=== PATIENT | female | born 1965 | race African-American/Black ===

== ENCOUNTER 2017-02-23 12:43 | Inpatient (IN) | payer MEDICAID ==
[~2017-02-23] VITALS: Ht 162.6 cm; Wt 113.4 kg
[~2017-02-23 12:43] MED LIST: ASPI-1035; GABA800T97 PO; HUM10VIA8 SQ; Nifedipine PO; OMEP20CA10 PO
[2017-02-23] MEDS ORDERED: TRAMADOL (13:03)
[2017-02-23] MEDS ORDERED: LISINOPRIL (13:03)
[2017-02-23 14:39] LABS: BASOPHILS % 0.7 % (0.0-2.0); EOSINOPHILS % 9.7 % (0.0-5.0); HEMATOCRIT. 26.2 % (36.0-48.0); LYMPHOCYTES % 34.1 % (20.0-50.0); MEAN CORPUSCULAR HEMOGLOBIN 18.7 pg (28.0-32.0); MEAN CORPUSCULAR HGB CONC 30.8 g/dL (31.0-37.0); MEAN CORPUSCULAR VOLUME 60.8 fL (81.0-99.0); NEUTROPHILS % 49.5 % (40.0-76.0); RED CELL DISTRIBUTION WIDTH 17.5 % (11.6-14.6)
[2017-02-23 14:45] LABS: PROTHROMBIN TIME 10.8 sec
[2017-02-23 14:47] LABS: DIFFERENTIAL COMMENT 1
[2017-02-23 14:48] LABS: ADD RBC MORPHOLOGY YES
[2017-02-23 14:49] LABS: ALANINE AMINOTRANSFERASE 17 IU/L (13-61); ALBUMIN 2.1 g/dL (3.4-5.0); ANION GAP 9; CALCIUM 8.6 mg/dL (8.5-10.1); CARBON DIOXIDE 23 mEq/L (21-32); CHLORIDE 115 mEq/L (98-107); INDEX HEMOLYSI 1 (1-3); INDEX ICTERIC 1 (1-4); INDEX LIPEMIC 1 (1-3); UREA NITROGEN BLOOD 46 mg/dL (7-21)
[2017-02-23 14:54] LABS: TROPONIN I < 0.02 ng/mL (0.00-0.04); eGFR 26 mL/min (>60)
[2017-02-23] MEDS ORDERED: ONDANSETRON HCL 4MG/2ML VIAL IV ONE (15:00)
[2017-02-23] MEDS ORDERED: MORPHINE SULFATE 4 MG/ML CPJ (NOT FOR IM USE) IV ONE (15:00)
[2017-02-23 15:39] LABS: HYPOCHROMASIA 3+; MEAN PLATELET VOLUME 9.2 fl (7.4-10.4); PLATELET 177 x1000/uL (130-400); PLATELET ESTIMATE NORMAL
[2017-02-23] MEDS ORDERED: SODIUM POLYSTYRENE SULFONATE 15 G/60 ML BOT PO ONE (16:15)
[2017-02-23 18:08] LABS: CLARITY URINE CLEAR (CLEAR); COLOR URINE YELLOW (YELLOW); GLUCOSE URINE TRACE (NEGATIVE); KETONES URINE NEGATIVE (NEGATIVE); LEUKOCYTE ESTERASE URINE NEGATIVE (NEGATIVE); NITRITE URINE NEGATIVE (NEGATIVE); OCCULT BLOOD URINE 1+ (NEGATIVE); PROTEIN URINE 3+ (NEGATIVE); SPECIFIC GRAVITY URINE 1.016 (1.005-1.030); UROBILINOGEN URINE 0.2 E.U./dL (0.2-1.0)
[2017-02-23] MEDS ORDERED: NA PHOS,M-B/NA PHOS,DI-BA ENEMA 118ML PR PRN (18:30)
[2017-02-23] MEDS ORDERED: CLONIDINE 0.2MG TABLET PO ONE (18:30)
[2017-02-23] MEDS ORDERED: IPRATROPIUM/ALBUTEROL 0.5-3(2.5)MG/3ML NEB INH PRN (18:30)
[2017-02-23] MEDS ORDERED: AMLODIPINE 10MG TABLET PO NR (18:30)
[2017-02-23] MEDS ORDERED: GUAIFENESIN 200MG/10ML SUGAR FREE UDC PO PRN (18:30)
[2017-02-23] MEDS ORDERED: ACETAMINOPHEN 325MG TABLET PO PRN (18:30)
[2017-02-23] MEDS ORDERED: DOCUSATE SODIUM 100MG CAPSULE PO PRN (18:30)
[2017-02-23] MEDS ORDERED: ACETAMINOPHEN 650MG/20.3ML UDC GT PRN (18:30)
[2017-02-23] MEDS ORDERED: ONDANSETRON HCL 4MG/2ML VIAL IV PRN (18:30)
[2017-02-23] MEDS ORDERED: ACETAMINOPHEN 650MG SUPP PR PRN (18:30)
[2017-02-23] MEDS ORDERED: CLONIDINE 0.1MG TABLET PO PRN (18:30)
[2017-02-23 18:39] LABS: BACTERIA URINE 1+; RBC URINE 0-2 /hpf (0-2); SQUAMOUS EPITHELIAL CELL URINE FEW /lpf (RARE/1+); WBC URINE 0-2 /hpf (0-2)
[2017-02-23 21:30] VITALS: BP 146/90
[2017-02-23 21:55] VITALS: BP 146/90
[2017-02-23] MEDS ORDERED: TRAMADOL 50MG TABLET PO PRN (23:00)
[2017-02-23] MEDS ORDERED: DEXTROSE 50% WATER 50ML SYRINGE IV PRN (23:00)
[2017-02-23] MEDS: SODIUM CHLORIDE 0.9% 1,000 ML IV SCH (23:27)
[2017-02-23] MEDS: HYDROCODONE/ACETAMINOPHEN 5/325MG TABLET PO PRN (23:27)
[2017-02-23] MEDS: SODIUM CHLORIDE 0.9% INJ 3ML FLUSH IVF SCH (23:28)
[2017-02-24] VITALS (10 sets, daily range): BP systolic 119–158; BP diastolic 70–92
[2017-02-24] MEDS: HYDROCODONE/ACETAMINOPHEN 5/325MG TABLET PO PRN ×4 (04:20→20:51)
[2017-02-24] MEDS: BLOOD SUGAR DIAGNOSTIC STRIP TEST SCH ×4 (05:52→21:07)
[2017-02-24] MEDS: SODIUM CHLORIDE 0.9% INJ 3ML FLUSH IVF SCH ×3 (05:52→20:51)
[2017-02-24] MEDS: INSULIN LISPRO 100 UNITS/ML SUBCUT SCH ×4 (05:53→21:10)
[2017-02-24 07:10] LABS: BASOPHILS % 0.8 % (0.0-2.0); EOSINOPHILS % 9.6 % (0.0-5.0); HEMATOCRIT. 26.2 % (36.0-48.0); HEMOGLOBIN. 8.2 g/dL (12.0-16.0); LYMPHOCYTES % 45.3 % (20.0-50.0); MEAN CORPUSCULAR HEMOGLOBIN 19.2 pg (28.0-32.0); MEAN CORPUSCULAR HGB CONC 31.1 g/dL (31.0-37.0); MEAN CORPUSCULAR VOLUME 61.6 fL (81.0-99.0); MONOCYTES % 6.2 % (2.0-8.0); NEUTROPHILS % 38.1 % (40.0-76.0); RED BLOOD CELL COUNT 4.26 mill/uL (4.2-5.4); RED CELL DISTRIBUTION WIDTH 18.6 % (11.6-14.6); WHITE BLOOD COUNT 6.4 x1000/uL (4.5-11.0)
[2017-02-24 07:48] LABS: DIFFERENTIAL COMMENT 1
[2017-02-24] MEDS: OMEPRAZOLE 20MG CAPSULE EXTENDED RELEASE PO SCH ×2 (08:09→08:19)
[2017-02-24] MEDS: AMLODIPINE 10MG TABLET PO SCH (08:19)
[2017-02-24] MEDS: NIFEDIPINE XL 60MG TAB PO SCH ×2 (08:19→20:51)
[2017-02-24] MEDS: GABAPENTIN 400MG CAPSULE PO SCH ×2 (08:19→16:17)
[2017-02-24] MEDS: ASPIRIN 81MG EC TABLET PO SCH (08:19)
[2017-02-24 08:25] LABS: ALANINE AMINOTRANSFERASE 15 IU/L (13-61); ALBUMIN 1.8 g/dL (3.4-5.0); ANION GAP 9; CALCIUM 7.9 mg/dL (8.5-10.1); CARBON DIOXIDE 24 mEq/L (21-32); CHLORIDE 113 mEq/L (98-107); HDL CHOLESTEROL 52 mg/dL (40-59); INDEX HEMOLYSI 1 (1-3); INDEX ICTERIC 1 (1-4); INDEX LIPEMIC 1 (1-3); LDL CHOLESTEROL 113 mg/dL (5-100); TRIGLYCERIDE 192 mg/dL (0-150); UREA NITROGEN BLOOD 44 mg/dL (7-21); eGFR 25 mL/min (>60)
[2017-02-24] MEDS ORDERED: ENOXAPARIN 30MG/0.3ML SYR SUBCUT SCH (09:00)
[2017-02-24 09:27] LABS: MEAN PLATELET VOLUME 10.6 fl (7.4-10.4); PLATELET 162 x1000/uL (130-400)
[2017-02-24] MEDS ORDERED: SODIUM POLYSTYRENE SULFONATE 15 G/60 ML BOT PO NR (11:02)
[2017-02-24 11:14] LABS: *AMPHETAMINES SCREEN URINE NEGATIVE (NEGATIVE); *BARBITURATES SCREEN URINE NEGATIVE (NEGATIVE); *BENZODIAZEPINES SCREEN URINE NEGATIVE (NEGATIVE); *COCAINE SCREEN URINE NEGATIVE (NEGATIVE); CANNABINOID URINE SCREEN NEGATIVE (NEGATIVE); ECSTASY MDMA SCREEN URINE NEGATIVE (NEGATIVE); METHADONE URINE SCREEN NEGATIVE (NEGATIVE); OPIATES URINE SCREEN NEGATIVE (NEGATIVE); PHENCYCLIDINE URINE SCREEN NEGATIVE (NEGATIVE)
[2017-02-24] MEDS: SODIUM CHLORIDE 0.9% 1,000 ML IV SCH (20:51)
[2017-02-24] MEDS: MAGNESIUM/ALUMINUM HYDROXIDE/SIMETHICONE 30ML UDC PO PRN (20:51)
[2017-02-24] MEDS: DIPHENHYDRAMINE 50MG/ML VIAL IV PRN (23:08)
[2017-02-25] VITALS: BP 121/63
[2017-02-25 04:00] VITALS: BP 136/90
[2017-02-25] MEDS: HYDROCODONE/ACETAMINOPHEN 5/325MG TABLET PO PRN ×3 (04:11→21:12)
[2017-02-25] MEDS: SODIUM CHLORIDE 0.9% INJ 3ML FLUSH IVF SCH ×3 (06:07→21:16)
[2017-02-25] MEDS: INSULIN LISPRO 100 UNITS/ML SUBCUT SCH ×4 (06:21→20:32)
[2017-02-25] MEDS: BLOOD SUGAR DIAGNOSTIC STRIP TEST SCH ×4 (06:21→20:32)
[2017-02-25 08:00] VITALS: BP 116/70
[2017-02-25] MEDS: NIFEDIPINE XL 60MG TAB PO SCH ×2 (09:14→21:16)
[2017-02-25] MEDS: ENOXAPARIN 40MG/0.4ML SYR SUBCUT SCH (09:14)
[2017-02-25] MEDS: OMEPRAZOLE 20MG CAPSULE EXTENDED RELEASE PO SCH (09:14)
[2017-02-25] MEDS: ASPIRIN 81MG EC TABLET PO SCH (09:14)
[2017-02-25] MEDS: AMLODIPINE 10MG TABLET PO SCH (09:14)
[2017-02-25] MEDS: GABAPENTIN 400MG CAPSULE PO SCH ×2 (09:15→17:10)
[2017-02-25 12:00] VITALS: BP 124/72
[2017-02-25] MEDS: SODIUM CHLORIDE 0.9% 1,000 ML IV SCH (13:56)
[2017-02-25 16:53] VITALS: BP 119/68
[2017-02-25 20:00] VITALS: BP 144/80
[2017-02-25] MEDS: DIPHENHYDRAMINE 50MG/ML VIAL IV PRN (22:37)
[2017-02-26] VITALS: BP 136/97
[2017-02-26 04:00] VITALS: BP 135/67
[2017-02-26] MEDS: SODIUM CHLORIDE 0.9% INJ 3ML FLUSH IVF SCH ×3 (05:13→22:40)
[2017-02-26] MEDS: SODIUM CHLORIDE 0.9% 1,000 ML IV SCH ×2 (05:14→16:46)
[2017-02-26] MEDS: HYDROCODONE/ACETAMINOPHEN 5/325MG TABLET PO PRN ×2 (05:39→15:02)
[2017-02-26] MEDS: BLOOD SUGAR DIAGNOSTIC STRIP TEST SCH ×4 (07:17→20:39)
[2017-02-26] MEDS: INSULIN LISPRO 100 UNITS/ML SUBCUT SCH ×4 (07:17→21:00)
[2017-02-26 08:00] VITALS: BP 128/69
[2017-02-26] MEDS: NIFEDIPINE XL 60MG TAB PO SCH ×2 (08:42→20:39)
[2017-02-26] MEDS: ASPIRIN 81MG EC TABLET PO SCH (08:42)
[2017-02-26] MEDS: FAMOTIDINE 20MG TABLET PO SCH (08:42)
[2017-02-26] MEDS: GABAPENTIN 400MG CAPSULE PO SCH ×2 (08:42→16:43)
[2017-02-26] MEDS: AMLODIPINE 10MG TABLET PO SCH (08:42)
[2017-02-26] MEDS: ENOXAPARIN 40MG/0.4ML SYR SUBCUT SCH (08:43)
[2017-02-26 12:00] VITALS: BP 116/71
[2017-02-26 16:00] VITALS: BP 141/77
[2017-02-26] MEDS ORDERED: FUROSEMIDE 40MG/4ML VIAL IVP NR (16:30)
[2017-02-26] MEDS ORDERED: POTASSIUM CHLORIDE 20MEQ TABLET SR PO ONE (16:30)
[2017-02-26] MEDS: MAGNESIUM/ALUMINUM HYDROXIDE/SIMETHICONE 30ML UDC PO PRN (16:46)
[2017-02-26 20:00] VITALS: BP 133/83
[2017-02-26 20:30] LABS: HEMATOCRIT. 29.2 % (36.0-48.0); MEAN CORPUSCULAR HEMOGLOBIN 19.6 pg (28.0-32.0); MEAN CORPUSCULAR HGB CONC 30.9 g/dL (31.0-37.0); MEAN CORPUSCULAR VOLUME 63.5 fL (81.0-99.0); MEAN PLATELET VOLUME 11.4 fl (7.4-10.4); PLATELET 203 x1000/uL (130-400); RED CELL DISTRIBUTION WIDTH 19.2 % (11.6-14.6); WHITE BLOOD COUNT 6.3 x1000/uL (4.5-11.0)
[2017-02-26 20:40] LABS: DIFFERENTIAL COMMENT 1
[2017-02-26 20:54] LABS: ALANINE AMINOTRANSFERASE 19 IU/L (13-61); ANION GAP 11; CARBON DIOXIDE 22 mEq/L (21-32); CHLORIDE 115 mEq/L (98-107); INDEX HEMOLYSI 1 (1-3); INDEX ICTERIC 1 (1-4); INDEX LIPEMIC 1 (1-3); UREA NITROGEN BLOOD 42 mg/dL (7-21); eGFR 26 mL/min (>60)
[2017-02-26 21:30] LABS: HYPOCHROMASIA 2+; PLATELET ESTIMATE NORMAL
[2017-02-26 21:31] LABS: ANISOCYTOSIS 2+
[2017-02-26] MEDS: DIPHENHYDRAMINE 50MG/ML VIAL IV PRN (22:45)
[2017-02-27] VITALS: BP 154/83
[2017-02-27 04:00] VITALS: BP 133/88
[2017-02-27] MEDS: SODIUM CHLORIDE 0.9% 1,000 ML IV SCH (05:47)
[2017-02-27] MEDS: INSULIN LISPRO 100 UNITS/ML SUBCUT SCH ×2 (06:15→12:33)
[2017-02-27] MEDS: BLOOD SUGAR DIAGNOSTIC STRIP TEST SCH ×2 (06:15→12:28)
[2017-02-27] MEDS: SODIUM CHLORIDE 0.9% INJ 3ML FLUSH IVF SCH ×2 (06:48→12:34)
[2017-02-27] MEDS: HYDROCODONE/ACETAMINOPHEN 5/325MG TABLET PO PRN (06:49)
[2017-02-27 08:00] VITALS: BP 147/87
[2017-02-27] MEDS: FAMOTIDINE 20MG TABLET PO SCH (09:39)
[2017-02-27] MEDS: NIFEDIPINE XL 60MG TAB PO SCH (09:39)
[2017-02-27] MEDS: ASPIRIN 81MG EC TABLET PO SCH (09:39)
[2017-02-27] MEDS: GABAPENTIN 400MG CAPSULE PO SCH (09:40)
[2017-02-27] MEDS: AMLODIPINE 10MG TABLET PO SCH (09:40)
[2017-02-27] MEDS: ENOXAPARIN 40MG/0.4ML SYR SUBCUT SCH (09:40)
[2017-02-27 12:00] VITALS: BP 128/66
[2017-02-27] MEDS: DIPHENHYDRAMINE 50MG/ML VIAL IV PRN (12:34)
[2017-02-27 15:20] VITALS: BP 141/92
== END 2017-02-27 18:05 | disposition home or self-care (01) | DRG 460 ==
LOC: ER 12:44 → 8WST 16:48
PROVIDERS: ADMIT Family Medicine; ATTEND Family Medicine
PROC: 30233N1 Transfusion of Nonautologous Red Blood Cells into Peripheral Vein, Percutaneous Approach (ICD-10-PCS; principal; 2017-02-24)
DX: N17.9 Acute kidney failure, unspecified (principal); E11.22 Type 2 diabetes mellitus with diabetic chronic kidney disease; E11.40 Type 2 diabetes mellitus with diabetic neuropathy, unspecified; E46 Unspecified protein-calorie malnutrition; D63.8 Anemia in other chronic diseases classified elsewhere; E78.5 Hyperlipidemia, unspecified; E87.5 Hyperkalemia; I12.9 Hypertensive chronic kidney disease with stage 1 through stage 4 chronic kidney disease, or unspecified chronic kidney disease; R29.6 Repeated falls; D25.9 Leiomyoma of uterus, unspecified; E86.0 Dehydration; F17.200 Nicotine dependence, unspecified, uncomplicated; M47.9 Spondylosis, unspecified; N18.3 Chronic kidney disease, stage 3 (moderate); N20.0 Calculus of kidney; F32.9 Major depressive disorder, single episode, unspecified; E66.9 Obesity, unspecified; W18.30XA Fall on same level, unspecified, initial encounter; Z59.0 Homelessness; Z79.82 Long term (current) use of aspirin; Z86.73 Personal history of transient ischemic attack (TIA), and cerebral infarction without residual deficits; Z79.4 Long term (current) use of insulin; Z79.899 Other long term (current) drug therapy; Z68.41 Body mass index [BMI] 40.0-44.9, adult; Y93.89 Activity, other specified; Y92.89 Other specified places as the place of occurrence of the external cause; Y99.8 Other external cause status
CPT/HCPCS: 36415; 36430; 70450; 72100; 72170; 73562; 74176; 76770; 80053; 80061; 80305; 81001; 82962; 83036; 84484; 85025; 85610; 86850; 86900; 86920; 93005; 93971; 96374; 96375; 97116; 97162; 97530; 99285; 99406; C1893; J1200; J1650; J1815; J2270; J2405; J7030; J7050; P9016

== ENCOUNTER 2017-03-01 09:01 | Emergency (ER) | payer MEDICAID ==
[~2017-03-01] VITALS: Ht 162.6 cm; Wt 85.0 kg
[~2017-03-01 09:01] MED LIST changes: +LISINOPRIL; +TRAMADOL
[2017-03-01] MEDS ORDERED: ACETAMINOPHEN 325MG TABLET PO ONE (10:45)
[2017-03-01 11:10] LABS: BASOPHILS % 0.5 % (0.0-2.0); EOSINOPHILS % 6.5 % (0.0-5.0); HEMATOCRIT. 31.1 % (36.0-48.0); HEMOGLOBIN. 9.5 g/dL (12.0-16.0); LYMPHOCYTES % 26.6 % (20.0-50.0); MEAN CORPUSCULAR HEMOGLOBIN 19.1 pg (28.0-32.0); MEAN CORPUSCULAR HGB CONC 30.5 g/dL (31.0-37.0); MEAN CORPUSCULAR VOLUME 62.7 fL (81.0-99.0); MONOCYTES % 8.6 % (2.0-8.0); NEUTROPHILS % 57.8 % (40.0-76.0); RED BLOOD CELL COUNT 4.96 mill/uL (4.2-5.4); RED CELL DISTRIBUTION WIDTH 18.8 % (11.6-14.6); WHITE BLOOD COUNT 7.8 x1000/uL (4.5-11.0)
[2017-03-01 11:17] LABS: DIFFERENTIAL COMMENT 1
[2017-03-01 11:18] LABS: ADD RBC MORPHOLOGY YES
[2017-03-01 11:21] LABS: CALCIUM 8.5 mg/dL (8.5-10.1)
[2017-03-01 12:06] LABS: ANISOCYTOSIS 2+; HYPOCHROMASIA 2+
[2017-03-01 12:07] LABS: GIANT PLATELETS FEW; MEAN PLATELET VOLUME 9.9 fl (7.4-10.4); PLATELET 197 x1000/uL (130-400); PLATELET ESTIMATE NORMAL
[2017-03-01] MEDS ORDERED: LABETALOL HCL 20MG/4ML CARPUJECT IV PRN (13:30)
[2017-03-01] MEDS ORDERED: LABETALOL 5MG/ML SYR 20 MG/4 ML SYRINGE IV PRN (13:45)
[2017-03-01] MEDS ORDERED: LORAZEPAM 2MG/ML CPJ IV ONE (14:15)
[2017-03-01] MEDS ORDERED: DIPHENHYDRAMINE 50MG/ML VIAL IV ONE (14:15)
[2017-03-01 17:59] LABS: *AMPHETAMINES SCREEN URINE NEGATIVE (NEGATIVE); *BARBITURATES SCREEN URINE NEGATIVE (NEGATIVE); *BENZODIAZEPINES SCREEN URINE NEGATIVE (NEGATIVE); *COCAINE SCREEN URINE NEGATIVE (NEGATIVE); CANNABINOID URINE SCREEN NEGATIVE (NEGATIVE); ECSTASY MDMA SCREEN URINE NEGATIVE (NEGATIVE); METHADONE URINE SCREEN NEGATIVE (NEGATIVE); OPIATES URINE SCREEN PRESUMTIVE POSITIVE (NEGATIVE); PHENCYCLIDINE URINE SCREEN NEGATIVE (NEGATIVE)
[2017-03-01] MEDS ORDERED: DIPHENHYDRAMINE 50MG CAPSULE PO ONE (22:45)
[2017-03-02] MEDS ORDERED: NIFEDIPINE XL 60MG TAB PO ONE (08:30)
[2017-03-02] MEDS ORDERED: GABAPENTIN 400MG CAPSULE PO ONE (08:30)
[2017-03-02] MEDS ORDERED: DIPHENHYDRAMINE 50MG CAPSULE PO ONE (08:30)
[2017-03-02 14:10] VITALS: BP 142/72
== END 2017-03-02 14:07 | disposition home or self-care (01) ==
LOC: ER 09:12
DX: G44.209 Tension-type headache, unspecified, not intractable (principal); I12.9 Hypertensive chronic kidney disease with stage 1 through stage 4 chronic kidney disease, or unspecified chronic kidney disease; N18.9 Chronic kidney disease, unspecified; E11.9 Type 2 diabetes mellitus without complications; F32.9 Major depressive disorder, single episode, unspecified; E78.00 Pure hypercholesterolemia, unspecified; R29.6 Repeated falls; Z86.73 Personal history of transient ischemic attack (TIA), and cerebral infarction without residual deficits; Z91.81 History of falling; Z79.82 Long term (current) use of aspirin; Z79.4 Long term (current) use of insulin
CPT/HCPCS: 36415; 80048; 80305; 82962; 85025; 93005; 93971; 96374; 96375; 99285; J1200; J2060; J3490; Z7610; Q0163

== ENCOUNTER 2017-07-16 23:07 | Inpatient (IN) | payer MEDICAID ==
[~2017-07-16] VITALS: Ht 165.1 cm; Wt 58.1 kg
[~2017-07-16 23:07] MED LIST changes: -ASPI-1035; +ASPI-1158; +LISI2.5T47 PO; -LISINOPRIL; +NIFE60TA35 PO; +TRAM50TA3 PO; -TRAMADOL
[2017-07-17] MEDS ORDERED: ONDANSETRON HCL 4MG/2ML VIAL IV STA (00:06)
[2017-07-17] MEDS ORDERED: MORPHINE SULFATE 4 MG/ML CPJ (NOT FOR IM USE) IV ONE (00:15)
[2017-07-17] MEDS ORDERED: ENALAPRIL 2.5MG/2ML VIAL 2ML IV ONE (00:15)
[2017-07-17 00:39] LABS: BASOPHILS % 0.5 % (0.0-2.0); EOSINOPHILS % 4.5 % (0.0-5.0); HEMOGLOBIN. 7.9 g/dL (12.0-16.0); LYMPHOCYTES % 31.5 % (20.0-50.0); MEAN CORPUSCULAR HEMOGLOBIN 18.7 pg (28.0-32.0); MEAN CORPUSCULAR VOLUME 59.1 fL (81.0-99.0); MONOCYTES % 7.2 % (2.0-8.0); NEUTROPHILS % 56.3 % (40.0-76.0); RED BLOOD CELL COUNT 4.22 mill/uL (4.2-5.4); RED CELL DISTRIBUTION WIDTH 16.4 % (11.6-14.6)
[2017-07-17 00:55] LABS: CARBON DIOXIDE 23 mEq/L (21-32); CHLORIDE 114 mEq/L (98-107); TROPONIN I < 0.02 ng/mL (0.00-0.04)
[2017-07-17 01:17] LABS: MEAN PLATELET VOLUME 9.2 fl (7.4-10.4); PLATELET 159 x1000/uL (130-400)
[2017-07-17 07:20] VITALS: BP 175/80
[2017-07-17] MEDS ORDERED: IPRATROPIUM/ALBUTEROL 0.5-3(2.5)MG/3ML NEB INH PRN (07:45)
[2017-07-17] MEDS ORDERED: ENOXAPARIN 40MG/0.4ML SYR SUBCUT SCH ×2 (07:45→09:00)
[2017-07-17] MEDS ORDERED: ONDANSETRON HCL 4MG/2ML VIAL IV PRN (07:45)
[2017-07-17 07:53] VITALS: BP 130/84
[2017-07-17 07:56] VITALS: BP 130/84
[2017-07-17] MEDS: FOLIC ACID 1MG TABLET PO SCH (08:11)
[2017-07-17] MEDS: OMEPRAZOLE 20MG CAPSULE EXTENDED RELEASE PO SCH (08:11)
[2017-07-17] MEDS: NIFEDIPINE XL 60MG TAB PO SCH ×2 (08:12→17:23)
[2017-07-17] MEDS: MULTIVITAMINS,THER W-MINERALS TABLET PO SCH ×2 (08:12→08:15)
[2017-07-17] MEDS: ASPIRIN 81MG EC TABLET PO SCH (08:13)
[2017-07-17] MEDS: HYDROCODONE/ACETAMINOPHEN 5/325MG TABLET PO PRN (09:30)
[2017-07-17 12:00] VITALS: BP 147/74
[2017-07-17] MEDS ORDERED: SENNOSIDES/DOCUSATE SOD 8.6/50MG TABLET PO PRN (13:45)
[2017-07-17] MEDS: GABAPENTIN 400MG CAPSULE PO SCH ×2 (13:58→21:05)
[2017-07-17] MEDS: LACTULOSE 20G/30ML UDC PO SCH ×2 (14:02→21:05)
[2017-07-17 16:00] VITALS: BP 161/80
[2017-07-17 20:00] VITALS: BP 138/62
[2017-07-18] VITALS (12 sets, daily range): BP systolic 126–158; BP diastolic 59–86
[2017-07-18] MEDS: TRAMADOL 50MG TABLET PO PRN (01:09)
[2017-07-18] MEDS: GABAPENTIN 400MG CAPSULE PO SCH ×3 (06:18→22:11)
[2017-07-18] MEDS: LACTULOSE 20G/30ML UDC PO SCH ×3 (06:18→22:11)
[2017-07-18 06:30] LABS: BASOPHILS % 0.5 % (0.0-2.0); HEMATOCRIT. 21.7 % (36.0-48.0); LYMPHOCYTES % 40.1 % (20.0-50.0); MEAN CORPUSCULAR HEMOGLOBIN 18.7 pg (28.0-32.0); MEAN CORPUSCULAR VOLUME 58.5 fL (81.0-99.0); MONOCYTES % 6.5 % (2.0-8.0); NEUTROPHILS % 46.9 % (40.0-76.0); RED BLOOD CELL COUNT 3.72 mill/uL (4.2-5.4); RED CELL DISTRIBUTION WIDTH 16.8 % (11.6-14.6)
[2017-07-18 07:09] LABS: CHLORIDE 114 mEq/L (98-107)
[2017-07-18 07:22] LABS: CARBON DIOXIDE 21 mEq/L (21-32); PHOSPHORUS 5.4 mg/dL (2.5-4.9); TOTAL IRON BINDING CAPACITY 180 ug/dL (250-450)
[2017-07-18] MEDS: FOLIC ACID 1MG TABLET PO SCH (08:00)
[2017-07-18] MEDS: MULTIVITAMINS,THER W-MINERALS TABLET PO SCH (08:01)
[2017-07-18] MEDS: ASPIRIN 81MG EC TABLET PO SCH (08:01)
[2017-07-18] MEDS: NIFEDIPINE XL 60MG TAB PO SCH ×2 (08:01→16:27)
[2017-07-18] MEDS: OMEPRAZOLE 20MG CAPSULE EXTENDED RELEASE PO SCH (08:01)
[2017-07-18 08:04] LABS: MEAN PLATELET VOLUME 9.3 fl (7.4-10.4); PLATELET ESTIMATE NORMAL
[2017-07-18 08:05] LABS: PLATELET 153 x1000/uL (130-400)
[2017-07-18] MEDS: CALCIUM CARBONATE/VITAMIN D3 500MG TABLET PO SCH ×2 (10:40→16:27)
[2017-07-18] MEDS: HYDROCODONE/ACETAMINOPHEN 5/325MG TABLET PO PRN (10:45)
[2017-07-18] MEDS: FERROUS SULFATE 325MG TABLET PO SCH ×2 (12:34→16:27)
[2017-07-18 13:29] LABS: T4 FREE 0.94 ng/dL (0.76-1.46)
[2017-07-18 16:37] LABS: HEMATOCRIT 21.3 % (36.0-48.0); HEMOGLOBIN 6.9 g/dL (12.0-16.0)
[2017-07-18 22:50] LABS: CLARITY URINE CLEAR (CLEAR); COLOR URINE YELLOW (YELLOW); GLUCOSE URINE 1+ (NEGATIVE); KETONES URINE NEGATIVE (NEGATIVE); LEUKOCYTE ESTERASE URINE NEGATIVE (NEGATIVE); NITRITE URINE NEGATIVE (NEGATIVE); OCCULT BLOOD URINE 1+ (NEGATIVE); PH URINE 5.5 (4.5-8.0); PROTEIN URINE 4+ (NEGATIVE); SPECIFIC GRAVITY URINE 1.019 (1.005-1.030); UROBILINOGEN URINE 0.2 E.U./dL (0.2-1.0)
[2017-07-19] VITALS (8 sets, daily range): BP systolic 131–193; BP diastolic 59–104
[2017-07-19] MEDS: MORPHINE SULFATE 2 MG/ML CPJ (NOT FOR IM USE) IV PRN (00:40)
[2017-07-19] MEDS: DIPHENHYDRAMINE 50MG/ML VIAL IV PRN (02:03)
[2017-07-19] MEDS: GABAPENTIN 400MG CAPSULE PO SCH ×3 (05:47→21:04)
[2017-07-19] MEDS: LACTULOSE 20G/30ML UDC PO SCH ×3 (05:47→21:02)
[2017-07-19] MEDS: LEVOTHYROXINE SODIUM 25MCG TABLET PO SCH (06:20)
[2017-07-19 06:46] LABS: BASOPHILS % 0.3 % (0.0-2.0); EOSINOPHILS % 1.3 % (0.0-5.0); HEMATOCRIT. 29.4 % (36.0-48.0); HEMOGLOBIN. 9.3 g/dL (12.0-16.0); LYMPHOCYTES % 12.8 % (20.0-50.0); MEAN CORPUSCULAR HEMOGLOBIN 19.8 pg (28.0-32.0); MEAN CORPUSCULAR VOLUME 62.5 fL (81.0-99.0); NEUTROPHILS % 78.6 % (40.0-76.0); RED BLOOD CELL COUNT 4.71 mill/uL (4.2-5.4); RED CELL DISTRIBUTION WIDTH 19.3 % (11.6-14.6)
[2017-07-19] MEDS: ACETAMINOPHEN 325MG TABLET PO PRN (08:11)
[2017-07-19] MEDS: NIFEDIPINE XL 60MG TAB PO SCH ×2 (08:11→17:36)
[2017-07-19] MEDS: FERROUS SULFATE 325MG TABLET PO SCH ×3 (08:55→17:35)
[2017-07-19] MEDS: FOLIC ACID 1MG TABLET PO SCH (08:56)
[2017-07-19] MEDS: ASPIRIN 81MG EC TABLET PO SCH (08:56)
[2017-07-19] MEDS: CALCIUM CARBONATE/VITAMIN D3 500MG TABLET PO SCH ×2 (08:56→17:35)
[2017-07-19] MEDS: OMEPRAZOLE 20MG CAPSULE EXTENDED RELEASE PO SCH (08:56)
[2017-07-19] MEDS: CLONIDINE 0.1MG TABLET PO SCH ×3 (08:58→21:03)
[2017-07-19] MEDS: MULTIVITAMINS,THER W-MINERALS TABLET PO SCH (08:59)
[2017-07-19] MEDS: LISINOPRIL 10MG TABLET PO SCH ×2 (08:59→21:04)
[2017-07-19 13:17] LABS: PLATELET 168 x1000/uL (130-400)
[2017-07-19] MEDS: HYDROCODONE/ACETAMINOPHEN 5/325MG TABLET PO PRN ×2 (13:51→18:56)
[2017-07-19] MEDS ORDERED: LEVOFLOXACIN 500MG PREMIX 100 ML IV SCH (16:00)
[2017-07-19] MEDS: FAMOTIDINE 20MG TABLET PO SCH (21:03)
[2017-07-20 05:07] VITALS: BP 149/70
[2017-07-20] MEDS: LACTULOSE 20G/30ML UDC PO SCH ×3 (06:29→21:43)
[2017-07-20] MEDS: LEVOTHYROXINE SODIUM 25MCG TABLET PO SCH (06:30)
[2017-07-20] MEDS: GABAPENTIN 400MG CAPSULE PO SCH ×3 (06:30→21:43)
[2017-07-20] MEDS: CLONIDINE 0.1MG TABLET PO SCH ×3 (06:30→21:45)
[2017-07-20] MEDS: ACETAMINOPHEN 325MG TABLET PO PRN ×2 (06:30→14:35)
[2017-07-20 06:44] LABS: BASOPHILS % 0.3 % (0.0-2.0); EOSINOPHILS % 3.1 % (0.0-5.0); HEMATOCRIT. 23.8 % (36.0-48.0); HEMOGLOBIN. 7.5 g/dL (12.0-16.0); LYMPHOCYTES % 24.5 % (20.0-50.0); MEAN CORPUSCULAR HEMOGLOBIN 19.8 pg (28.0-32.0); MEAN CORPUSCULAR VOLUME 62.5 fL (81.0-99.0); MONOCYTES % 10.1 % (2.0-8.0); RED CELL DISTRIBUTION WIDTH 18.6 % (11.6-14.6)
[2017-07-20 08:00] VITALS: BP 137/78
[2017-07-20] MEDS: CALCIUM CARBONATE/VITAMIN D3 500MG TABLET PO SCH ×2 (09:01→17:13)
[2017-07-20] MEDS: FERROUS SULFATE 325MG TABLET PO SCH ×2 (09:01→14:34)
[2017-07-20] MEDS: NIFEDIPINE XL 60MG TAB PO SCH ×2 (09:01→17:14)
[2017-07-20] MEDS: ASPIRIN 81MG EC TABLET PO SCH (09:01)
[2017-07-20] MEDS: MULTIVITAMINS,THER W-MINERALS TABLET PO SCH (09:01)
[2017-07-20] MEDS: FOLIC ACID 1MG TABLET PO SCH (09:01)
[2017-07-20] MEDS: LISINOPRIL 10MG TABLET PO SCH ×2 (09:02→21:44)
[2017-07-20] MEDS ORDERED: SODIUM CHLORIDE 0.9% 1,000 ML IV SCH (09:15)
[2017-07-20 11:00] LABS: PLATELET 149 x1000/uL (130-400)
[2017-07-20 12:00] VITALS: BP 121/76
[2017-07-20 16:00] VITALS: BP 138/69
[2017-07-20 16:13] LABS: HEMOGLOBIN 7.5 g/dL (12.0-16.0)
[2017-07-20] MEDS ORDERED: LEVOFLOXACIN 250MG PREMIX 50 ML IV SCH (16:30)
[2017-07-20] MEDS ORDERED: LEVOFLOXACIN 500MG TABLET PO NR (16:50)
[2017-07-20 19:44] VITALS: BP 113/68
[2017-07-20] MEDS: FAMOTIDINE 20MG TABLET PO SCH (21:43)
[2017-07-20] MEDS: HYDROCODONE/ACETAMINOPHEN 5/325MG TABLET PO PRN (23:26)
[2017-07-21] VITALS (7 sets, daily range): BP systolic 109–161; BP diastolic 64–97
[2017-07-21] MEDS: MORPHINE SULFATE 2 MG/ML CPJ (NOT FOR IM USE) IV PRN (01:48)
[2017-07-21] MEDS: ACETAMINOPHEN 325MG TABLET PO PRN ×3 (05:27→21:09)
[2017-07-21] MEDS: GABAPENTIN 400MG CAPSULE PO SCH ×3 (06:00→21:04)
[2017-07-21] MEDS: CLONIDINE 0.1MG TABLET PO SCH ×3 (06:01→21:05)
[2017-07-21] MEDS: LACTULOSE 20G/30ML UDC PO SCH ×2 (06:01→13:15)
[2017-07-21 07:51] LABS: HEMATOCRIT. 26.5 % (36.0-48.0); HEMOGLOBIN. 8.6 g/dL (12.0-16.0); MEAN CORPUSCULAR VOLUME 61.7 fL (81.0-99.0); RED BLOOD CELL COUNT 4.29 mill/uL (4.2-5.4); RED CELL DISTRIBUTION WIDTH 18.5 % (11.6-14.6)
[2017-07-21] MEDS ORDERED: CEFEPIME 2,000 MG in DEXT 5% WATER 100 ML IV SCH (08:30)
[2017-07-21] MEDS: NIFEDIPINE XL 60MG TAB PO SCH ×2 (08:47→18:05)
[2017-07-21] MEDS: CALCIUM CARBONATE/VITAMIN D3 500MG TABLET PO SCH ×2 (08:47→18:05)
[2017-07-21] MEDS: LISINOPRIL 10MG TABLET PO SCH (08:47)
[2017-07-21] MEDS: ASPIRIN 81MG EC TABLET PO SCH (08:47)
[2017-07-21] MEDS: MULTIVITAMINS,THER W-MINERALS TABLET PO SCH (08:47)
[2017-07-21] MEDS ORDERED: VANCOMYCIN 2,000 MG in DEXT 5% WATER 500 ML IV SCH (11:00)
[2017-07-21 14:00] LABS: PLATELET 126 x1000/uL (130-400)
[2017-07-21 14:04] LABS: PLATELET ESTIMATE SLIGHTLY DECREASED
[2017-07-21] MEDS: TRAMADOL 50MG TABLET PO PRN (18:06)
[2017-07-21] MEDS: SODIUM CHLORIDE 0.9% 1,000 ML IV SCH ×2 (18:39→23:10)
[2017-07-21] MEDS: FAMOTIDINE 20MG TABLET PO SCH (21:04)
[2017-07-21] MEDS: AMPICILLIN SOD/SULBACTAM NA 3 G in SODIUM CHLORIDE 0.9% 100 ML IV SCH (21:04)
[2017-07-22 00:35] VITALS: BP 123/69
[2017-07-22 05:13] VITALS: BP 121/56
[2017-07-22] MEDS: SODIUM CHLORIDE 0.9% 1,000 ML IV SCH ×4 (06:17→18:28)
[2017-07-22] MEDS: GABAPENTIN 400MG CAPSULE PO SCH ×3 (06:17→21:47)
[2017-07-22] MEDS: CLONIDINE 0.1MG TABLET PO SCH ×3 (06:17→21:47)
[2017-07-22 08:00] VITALS: BP 127/55
[2017-07-22] MEDS: AMPICILLIN SOD/SULBACTAM NA 3 G in SODIUM CHLORIDE 0.9% 100 ML IV SCH ×2 (08:45→21:33)
[2017-07-22] MEDS: NIFEDIPINE XL 60MG TAB PO SCH ×2 (08:46→17:00)
[2017-07-22] MEDS: ACETAMINOPHEN 325MG TABLET PO PRN ×2 (08:46→13:50)
[2017-07-22] MEDS: ASPIRIN 81MG EC TABLET PO SCH (08:46)
[2017-07-22] MEDS: MULTIVITAMINS,THER W-MINERALS TABLET PO SCH (08:46)
[2017-07-22] MEDS: CALCIUM CARBONATE/VITAMIN D3 500MG TABLET PO SCH ×2 (08:46→17:05)
[2017-07-22] MEDS ORDERED: LEVOFLOXACIN 250MG TABLET PO SCH (11:00)
[2017-07-22 12:00] VITALS: BP 99/50
[2017-07-22 16:00] VITALS: BP 117/69
[2017-07-22 20:00] VITALS: BP 117/40
[2017-07-22] MEDS: FAMOTIDINE 20MG TABLET PO SCH (21:47)
[2017-07-23] VITALS (37 sets, daily range): BP systolic 88–141; BP diastolic 40–83
[2017-07-23] MEDS: SODIUM CHLORIDE 0.9% 1,000 ML IV SCH ×2 (03:49→07:26)
[2017-07-23] MEDS: CLONIDINE 0.1MG TABLET PO SCH ×3 (06:20→22:00)
[2017-07-23] MEDS: GABAPENTIN 400MG CAPSULE PO SCH ×3 (06:20→22:00)
[2017-07-23 06:37] LABS: HEMATOCRIT. 23.3 % (36.0-48.0); HEMOGLOBIN. 7.4 g/dL (12.0-16.0); MEAN CORPUSCULAR HEMOGLOBIN 19.5 pg (28.0-32.0); MEAN CORPUSCULAR VOLUME 61.2 fL (81.0-99.0); MEAN PLATELET VOLUME 10.4 fl (7.4-10.4); PLATELET 121 x1000/uL (130-400); RED BLOOD CELL COUNT 3.81 mill/uL (4.2-5.4); RED CELL DISTRIBUTION WIDTH 18.1 % (11.6-14.6)
[2017-07-23] MEDS: FERROUS SULFATE 325MG TABLET PO SCH ×3 (07:50→17:24)
[2017-07-23] MEDS: CALCIUM CARBONATE/VITAMIN D3 500MG TABLET PO SCH ×2 (08:04→17:00)
[2017-07-23] MEDS: NIFEDIPINE XL 60MG TAB PO SCH ×2 (08:04→17:00)
[2017-07-23] MEDS: MULTIVITAMINS,THER W-MINERALS TABLET PO SCH (08:04)
[2017-07-23] MEDS: ASPIRIN 81MG EC TABLET PO SCH (08:04)
[2017-07-23] MEDS: CITRIC ACID/SODIUM CITRATE SOLN 15ML UDC PO SCH ×3 (08:05→17:00)
[2017-07-23] MEDS: AMPICILLIN SOD/SULBACTAM NA 3 G in SODIUM CHLORIDE 0.9% 100 ML IV SCH ×2 (08:05→20:50)
[2017-07-23] MEDS: ACETAMINOPHEN 325MG TABLET PO PRN (08:05)
[2017-07-23 08:39] LABS: PLATELET ESTIMATE SLIGHTLY DECREASED
[2017-07-23] MEDS ORDERED: MORPHINE SULFATE 2 MG/ML CPJ (NOT FOR IM USE) IV PRN (09:30)
[2017-07-23] MEDS ORDERED: ONDANSETRON HCL 4MG/2ML VIAL IV PRN (09:30)
[2017-07-23] MEDS ORDERED: LEVOFLOXACIN 500MG PREMIX 100 ML IV SCH (09:30)
[2017-07-23] MEDS ORDERED: BUPIVACAINE HCL 0.5% (5MG/ML) 50ML ONE (09:53)
[2017-07-23] MEDS ORDERED: SKIN ADHESIVE 0.7 GM EA TOP ONE (09:53)
[2017-07-23] MEDS ORDERED: FENTANYL CITRATE/PF 50MCG/ML 2ML VIAL ONE (10:12)
[2017-07-23] MEDS ORDERED: MIDAZOLAM HCL 2 MG/2 ML VIAL ONE (10:12)
[2017-07-23] MEDS ORDERED: ROCURONIUM BROMIDE 10MG/ML VIAL 5ML IV ONE (10:13)
[2017-07-23] MEDS ORDERED: SUCCINYLCHOLINE CHLORIDE 200MG/10ML VIAL IV ONE (10:13)
[2017-07-23] MEDS ORDERED: PROPOFOL 200MG/20ML VIAL IV ONE (10:13)
[2017-07-23] MEDS ORDERED: LIDOCAINE HCL 1% 20ML VIAL (Pyxis) INJ ONE ×2 (10:13→15:58)
[2017-07-23] MEDS ORDERED: ALBUTEROL 90MCG/PUFF 17GM INHALER INH ONE (10:43)
[2017-07-23] MEDS ORDERED: DEXAMETHASONE 4MG/ML 1ML VIAL ONE (11:12)
[2017-07-23] MEDS ORDERED: ONDANSETRON HCL 4MG/2ML VIAL ONE (12:02)
[2017-07-23 13:46] LABS: BG CARBOXYHEMOGLOBIN 0.2 % (0.5-1.5); BG DEOXYHEMOGLOBIN 6.8 % (0.0-5.0); BG FRACTION INSPIRED OXYGEN 100; BG HCO3 ACT 13.1 mmol/L (22.0-26.0); BG METHEMOGLOBIN 0.1 % (0.0-1.5); BG OXYGEN SATURATION 93.2 % (92.0-98.5); BG OXYHEMOGLOBIN 92.9 % (94.0-97.0); BG PCO2 34.8 mmHg (35.0-45.0); BG PH 7.193 (7.350-7.450); BG PO2 85.2 mmHg (75.0-100.0); BG SAMPLE SITE LEFT RADIAL; BG TIDAL VOLUME(mL) 500 mL; BG TOTAL HEMOGLOBIN 8.8 g/dL (12.0-18.0); BG VENT MODE VENT - A/C; BG VENT RATE 16 set
[2017-07-23] MEDS ORDERED: SODIUM BICARBONATE 8.4% 1 MEQ/ML 50ML SYR IV NR (14:00)
[2017-07-23] MEDS: PROPOFOL 10MG/ML 100ML 100 ML IV PRN ×4 (14:30→22:43)
[2017-07-23 15:14] LABS: HEMATOCRIT. 25.2 % (36.0-48.0); HEMOGLOBIN. 8.1 g/dL (12.0-16.0); MEAN CORPUSCULAR HEMOGLOBIN 20.7 pg (28.0-32.0); MEAN CORPUSCULAR VOLUME 64.7 fL (81.0-99.0); MEAN PLATELET VOLUME 12.4 fl (7.4-10.4); PLATELET 157 x1000/uL (130-400); RED CELL DISTRIBUTION WIDTH 25.7 % (11.6-14.6)
[2017-07-23] MEDS: METRONIDAZOLE 500 MG PREMIX 100 ML IV SCH (15:28)
[2017-07-23] MEDS: SODIUM BICARBONATE 100 MEQ in DEXTROSE 5% WATER 900 ML IV SCH (15:57)
[2017-07-23] MEDS ORDERED: SODIUM BICARBONATE 4% (2.4MEQ) 5ML VIAL IV ONE (15:59)
[2017-07-23 16:08] LABS: HCG SCREEN NEGATIVE
[2017-07-23 17:33] LABS: PLATELET ESTIMATE NORMAL
[2017-07-23] MEDS ORDERED: NOREPINEPHRINE 8 MG in DEXT 5% WATER 242 ML IV PRN (19:45)
[2017-07-23] MEDS: IPRATROPIUM/ALBUTEROL 0.5-3(2.5)MG/3ML NEB HHN SCH (20:09)
[2017-07-23] MEDS: FAMOTIDINE 20MG/2ML VIAL IV SCH (21:09)
[2017-07-23] MEDS: HYDROMORPHONE HCL/PF 2MG/ML CPJ IV PRN (22:06)
[2017-07-24] VITALS (83 sets, daily range): BP systolic 89–162; BP diastolic 45–87
[2017-07-24] MEDS: IPRATROPIUM/ALBUTEROL 0.5-3(2.5)MG/3ML NEB HHN SCH ×6 (00:15→20:53)
[2017-07-24] MEDS: PROPOFOL 10MG/ML 100ML 100 ML IV PRN ×3 (01:36→08:57)
[2017-07-24] MEDS: HYDROMORPHONE HCL/PF 2MG/ML CPJ IV PRN ×2 (01:37→10:14)
[2017-07-24] MEDS: SODIUM BICARBONATE 100 MEQ in DEXTROSE 5% WATER 900 ML IV SCH (02:53)
[2017-07-24] MEDS: METRONIDAZOLE 500 MG PREMIX 100 ML IV SCH (03:35)
[2017-07-24] MEDS: CLONIDINE 0.1MG TABLET PO SCH ×3 (04:56→21:40)
[2017-07-24] MEDS: GABAPENTIN 400MG CAPSULE PO SCH ×3 (04:56→21:41)
[2017-07-24 05:48] LABS: HEMATOCRIT. 27.4 % (36.0-48.0); HEMOGLOBIN. 8.9 g/dL (12.0-16.0); MEAN CORPUSCULAR HEMOGLOBIN 21.5 pg (28.0-32.0); MEAN CORPUSCULAR VOLUME 66.5 fL (81.0-99.0); RED BLOOD CELL COUNT 4.12 mill/uL (4.2-5.4); RED CELL DISTRIBUTION WIDTH 28.7 % (11.6-14.6)
[2017-07-24] MEDS ORDERED: VANCOMYCIN 1500MG in DEXTROSE 5% WATER 250ML IV NR (06:00)
[2017-07-24 06:12] LABS: PROTHROMBIN TIME 10.7 sec (9.4-11.6)
[2017-07-24 07:36] LABS: BG BASE EXCESS -10.2 mmol/L (-2.0-2.0); BG CARBOXYHEMOGLOBIN 0.3 % (0.5-1.5); BG DEOXYHEMOGLOBIN 2.7 % (0.0-5.0); BG HCO3 ACT 15.6 mmol/L (22.0-26.0); BG METHEMOGLOBIN 0.4 % (0.0-1.5); BG OXYGEN SATURATION 97.3 % (92.0-98.5); BG OXYHEMOGLOBIN 96.6 % (94.0-97.0); BG PH 7.279 (7.350-7.450); BG PO2 117.8 mmHg (75.0-100.0); BG SAMPLE SITE RIGHT RADIAL; BG TIDAL VOLUME(mL) 500 mL; BG TOTAL HEMOGLOBIN 9.9 g/dL (12.0-18.0); BG VENT MODE VENT - A/C; BG VENT RATE 16 set
[2017-07-24] MEDS: FERROUS SULFATE 325MG TABLET PO SCH ×3 (08:20→17:26)
[2017-07-24] MEDS: AMPICILLIN SOD/SULBACTAM NA 3 G in SODIUM CHLORIDE 0.9% 100 ML IV SCH (08:43)
[2017-07-24] MEDS: ASPIRIN 81MG EC TABLET PO SCH (08:58)
[2017-07-24] MEDS: CITRIC ACID/SODIUM CITRATE SOLN 15ML UDC PO SCH ×3 (08:58→16:23)
[2017-07-24] MEDS: CALCIUM CARBONATE/VITAMIN D3 500MG TABLET PO SCH ×2 (08:58→16:23)
[2017-07-24] MEDS: MULTIVITAMINS,THER W-MINERALS TABLET PO SCH (08:58)
[2017-07-24] MEDS: NIFEDIPINE XL 60MG TAB PO SCH ×2 (08:58→16:24)
[2017-07-24] MEDS ORDERED: ENOXAPARIN 40MG/0.4ML SYR SUBCUT SCH (09:00)
[2017-07-24 10:44] LABS: PLATELET 112 x1000/uL (130-400)
[2017-07-24 10:47] LABS: NUCLEATED RED BLOOD CELLS 1 /100 WBC
[2017-07-24 10:48] LABS: PLATELET ESTIMATE SLIGHTLY DECREASED
[2017-07-24] MEDS ORDERED: HEPARIN SODIUM 1,000 UNIT/1ML VIAL IV SCH (11:30)
[2017-07-24] MEDS: FENTANYL CITRATE/PF 500 MCG in SODIUM CHLORIDE 0.9% 40 ML IV PRN ×2 (11:58→21:40)
[2017-07-24] MEDS ORDERED: CEFEPIME 2,000 MG in DEXT 5% WATER 100 ML IV SCH (12:00)
[2017-07-24] MEDS ORDERED: DEXTROSE 50% WATER 50ML SYRINGE IV PRN (15:00)
[2017-07-24] MEDS: ENOXAPARIN 30MG/0.3ML SYR SUBCUT SCH (15:29)
[2017-07-24] MEDS: PANTOPRAZOLE SODIUM 40 MG/VIAL IV SCH (15:29)
[2017-07-24 15:42] LABS: BG BASE EXCESS -0.9 mmol/L (-2.0-2.0); BG CARBOXYHEMOGLOBIN 0.3 % (0.5-1.5); BG DEOXYHEMOGLOBIN 6.3 % (0.0-5.0); BG HCO3 ACT 22.4 mmol/L (22.0-26.0); BG METHEMOGLOBIN 0.3 % (0.0-1.5); BG OXYGEN SATURATION 93.7 % (92.0-98.5); BG OXYHEMOGLOBIN 93.1 % (94.0-97.0); BG PCO2 31.9 mmHg (35.0-45.0); BG PH 7.465 (7.350-7.450); BG PO2 67.3 mmHg (75.0-100.0); BG SAMPLE SITE RIGHT RADIAL; BG TIDAL VOLUME(mL) 500 mL; BG TOTAL HEMOGLOBIN 9.2 g/dL (12.0-18.0); BG VENT MODE VENT - A/C; BG VENT RATE 16 set
[2017-07-24] MEDS: MEROPENEM 1000MG in NORMAL SALINE 100ML IV SCH (15:59)
[2017-07-24] MEDS: DEXT 5%/0.45% NACL 1000ML 1,000 ML IV SCH (16:01)
[2017-07-24] MEDS: BLOOD SUGAR DIAGNOSTIC STRIP TEST SCH ×2 (17:26→21:26)
[2017-07-24] MEDS: INSULIN LISPRO 100 UNITS/ML SUBCUT SCH ×2 (17:35→21:36)
[2017-07-24] MEDS: FAMOTIDINE 20MG/2ML VIAL IV SCH (21:33)
[2017-07-25] VITALS (89 sets, daily range): BP systolic 124–184; BP diastolic 66–97
[2017-07-25] MEDS: IPRATROPIUM/ALBUTEROL 0.5-3(2.5)MG/3ML NEB HHN SCH ×6 (00:25→20:04)
[2017-07-25] MEDS: DEXT 5%/0.45% NACL 1000ML 1,000 ML IV SCH ×2 (05:09→18:08)
[2017-07-25] MEDS: CLONIDINE 0.1MG TABLET PO SCH ×3 (05:43→21:34)
[2017-07-25] MEDS: GABAPENTIN 400MG CAPSULE PO SCH (05:43)
[2017-07-25] MEDS: BLOOD SUGAR DIAGNOSTIC STRIP TEST SCH ×3 (07:55→17:48)
[2017-07-25] MEDS: FERROUS SULFATE 325MG TABLET PO SCH (07:57)
[2017-07-25 08:00] LABS: BG BASE EXCESS -2.4 mmol/L (-2.0-2.0); BG CARBOXYHEMOGLOBIN 0.3 % (0.5-1.5); BG DEOXYHEMOGLOBIN 3.5 % (0.0-5.0); BG FRACTION INSPIRED OXYGEN 50; BG METHEMOGLOBIN 0.3 % (0.0-1.5); BG OXYGEN SATURATION 96.5 % (92.0-98.5); BG OXYHEMOGLOBIN 95.9 % (94.0-97.0); BG PCO2 31.1 mmHg (35.0-45.0); BG PH 7.448 (7.350-7.450); BG PO2 96.3 mmHg (75.0-100.0); BG SAMPLE SITE RIGHT RADIAL; BG TIDAL VOLUME(mL) 500 mL; BG TOTAL HEMOGLOBIN 8.9 g/dL (12.0-18.0); BG VENT MODE VENT - A/C; BG VENT RATE 12 set
[2017-07-25] MEDS: CITRIC ACID/SODIUM CITRATE SOLN 15ML UDC PO SCH ×3 (09:00→17:00)
[2017-07-25] MEDS: ENOXAPARIN 30MG/0.3ML SYR SUBCUT SCH (09:00)
[2017-07-25] MEDS: CALCIUM CARBONATE/VITAMIN D3 500MG TABLET PO SCH ×2 (09:00→17:00)
[2017-07-25] MEDS: MULTIVITAMINS,THER W-MINERALS TABLET PO SCH (09:00)
[2017-07-25] MEDS: ASPIRIN 81MG EC TABLET PO SCH (09:00)
[2017-07-25] MEDS: NIFEDIPINE XL 60MG TAB PO SCH (09:00)
[2017-07-25] MEDS: PANTOPRAZOLE SODIUM 40 MG/VIAL IV SCH (09:51)
[2017-07-25] MEDS: INSULIN LISPRO 100 UNITS/ML SUBCUT SCH ×3 (09:51→18:10)
[2017-07-25] MEDS: MEROPENEM 1000MG in NORMAL SALINE 100ML IV SCH (09:52)
[2017-07-25] MEDS ORDERED: HEPARIN SODIUM 1,000 UNIT/1ML VIAL IV NR (11:30)
[2017-07-25 15:27] LABS: BASOPHILS % 0.1 % (0.0-2.0); EOSINOPHILS % 1.7 % (0.0-5.0); HEMATOCRIT. 26.1 % (36.0-48.0); HEMOGLOBIN. 8.7 g/dL (12.0-16.0); LYMPHOCYTES % 13.3 % (20.0-50.0); MEAN CORPUSCULAR HEMOGLOBIN 21.9 pg (28.0-32.0); MEAN CORPUSCULAR VOLUME 65.8 fL (81.0-99.0); MEAN PLATELET VOLUME 11.2 fl (7.4-10.4); MONOCYTES % 10.4 % (2.0-8.0); NEUTROPHILS % 74.5 % (40.0-76.0); PLATELET 169 x1000/uL (130-400); RED BLOOD CELL COUNT 3.96 mill/uL (4.2-5.4); RED CELL DISTRIBUTION WIDTH 27.2 % (11.6-14.6)
[2017-07-25] MEDS: FENTANYL CITRATE/PF 500 MCG in SODIUM CHLORIDE 0.9% 40 ML IV PRN (15:57)
[2017-07-25] MEDS ORDERED: VANCOMYCIN 1 G PREMIX 200 ML IV NR (16:00)
[2017-07-25 16:51] LABS: PLATELET ESTIMATE NORMAL
[2017-07-25] MEDS: ENALAPRIL 2.5MG/2ML VIAL 2ML IV PRN (17:21)
[2017-07-25] MEDS: HYDROMORPHONE HCL/PF 2MG/ML CPJ IV PRN (22:11)
[2017-07-26] VITALS (70 sets, daily range): BP systolic 145–183; BP diastolic 68–92
[2017-07-26] MEDS: BLOOD SUGAR DIAGNOSTIC STRIP TEST SCH ×5 (00:01→23:29)
[2017-07-26] MEDS: INSULIN LISPRO 100 UNITS/ML SUBCUT SCH ×5 (00:18→23:30)
[2017-07-26] MEDS: IPRATROPIUM/ALBUTEROL 0.5-3(2.5)MG/3ML NEB HHN SCH ×6 (00:20→20:20)
[2017-07-26] MEDS: ENALAPRIL 2.5MG/2ML VIAL 2ML IV PRN ×3 (04:59→18:22)
[2017-07-26] MEDS: CLONIDINE 0.1MG TABLET PO SCH ×3 (05:23→22:26)
[2017-07-26 06:01] LABS: BASOPHILS % 0.3 % (0.0-2.0); EOSINOPHILS % 2.5 % (0.0-5.0); HEMATOCRIT. 29.5 % (36.0-48.0); HEMOGLOBIN. 9.5 g/dL (12.0-16.0); LYMPHOCYTES % 14.5 % (20.0-50.0); MEAN CORPUSCULAR HEMOGLOBIN 21.5 pg (28.0-32.0); MEAN CORPUSCULAR VOLUME 66.4 fL (81.0-99.0); NEUTROPHILS % 70.7 % (40.0-76.0); PLATELET 173 x1000/uL (130-400); RED BLOOD CELL COUNT 4.45 mill/uL (4.2-5.4); RED CELL DISTRIBUTION WIDTH 27.3 % (11.6-14.6)
[2017-07-26] MEDS: FENTANYL CITRATE/PF 500 MCG in SODIUM CHLORIDE 0.9% 40 ML IV PRN (06:44)
[2017-07-26 08:11] LABS: BG BASE EXCESS -1.2 mmol/L (-2.0-2.0); BG CARBOXYHEMOGLOBIN 0.5 % (0.5-1.5); BG DEOXYHEMOGLOBIN 1.9 % (0.0-5.0); BG FRACTION INSPIRED OXYGEN 50; BG HCO3 ACT 22.6 mmol/L (22.0-26.0); BG METHEMOGLOBIN 0.2 % (0.0-1.5); BG OXYGEN SATURATION 98.1 % (92.0-98.5); BG OXYHEMOGLOBIN 97.4 % (94.0-97.0); BG PCO2 34.2 mmHg (35.0-45.0); BG PH 7.438 (7.350-7.450); BG PO2 138.1 mmHg (75.0-100.0); BG SAMPLE SITE RIGHT RADIAL; BG TIDAL VOLUME(mL) 500 mL; BG TOTAL HEMOGLOBIN 8.9 g/dL (12.0-18.0); BG VENT MODE VENT - A/C; BG VENT RATE 12 set
[2017-07-26] MEDS: CALCIUM CARBONATE/VITAMIN D3 500MG TABLET PO SCH ×2 (09:00→16:08)
[2017-07-26] MEDS: ASPIRIN 81MG EC TABLET PO SCH (09:00)
[2017-07-26] MEDS: MULTIVITAMINS,THER W-MINERALS TABLET PO SCH (09:00)
[2017-07-26] MEDS: CITRIC ACID/SODIUM CITRATE SOLN 15ML UDC PO SCH ×3 (09:00→16:08)
[2017-07-26] MEDS: MEROPENEM 1000MG in NORMAL SALINE 100ML IV SCH (09:12)
[2017-07-26] MEDS: PANTOPRAZOLE SODIUM 40 MG/VIAL IV SCH (09:12)
[2017-07-26] MEDS ORDERED: KCL 20MEQ/100ML PREMIX 100 ML IV SCH (10:00)
[2017-07-26 11:29] LABS: BG BASE EXCESS -1.1 mmol/L (-2.0-2.0); BG CARBOXYHEMOGLOBIN 0.3 % (0.5-1.5); BG DEOXYHEMOGLOBIN 3.2 % (0.0-5.0); BG FRACTION INSPIRED OXYGEN 40; BG HCO3 ACT 22.8 mmol/L (22.0-26.0); BG METHEMOGLOBIN 0.2 % (0.0-1.5); BG OXYGEN SATURATION 96.8 % (92.0-98.5); BG OXYHEMOGLOBIN 96.3 % (94.0-97.0); BG PH 7.432 (7.350-7.450); BG PO2 95.6 mmHg (75.0-100.0); BG PRESSURE SUPPORT 8; BG SAMPLE SITE RIGHT RADIAL; BG TOTAL HEMOGLOBIN 9.8 g/dL (12.0-18.0); BG VENT MODE VENT - CPAP
[2017-07-26] MEDS: HYDROMORPHONE HCL/PF 2MG/ML CPJ IV PRN ×2 (16:08→21:09)
[2017-07-26] MEDS: DEXT 5%/0.45% NACL 1000ML 1,000 ML IV SCH (17:23)
[2017-07-26] MEDS: FUROSEMIDE 40MG/4ML VIAL IVP SCH (18:22)
[2017-07-26] MEDS: AMLODIPINE 5MG TABLET PO SCH (20:07)
[2017-07-26] MEDS: METOPROLOL TARTRATE 25MG TABLET PO SCH (20:07)
[2017-07-27] VITALS (41 sets, daily range): BP systolic 136–190; BP diastolic 76–98
[2017-07-27] MEDS: IPRATROPIUM/ALBUTEROL 0.5-3(2.5)MG/3ML NEB HHN SCH ×7 (00:18→23:42)
[2017-07-27] MEDS: CLONIDINE 0.1MG TABLET PO SCH ×3 (05:25→22:00)
[2017-07-27 05:26] LABS: HEMOGLOBIN. 10.4 g/dL (12.0-16.0); MEAN CORPUSCULAR HEMOGLOBIN 21.8 pg (28.0-32.0); MEAN CORPUSCULAR VOLUME 66.9 fL (81.0-99.0); MEAN PLATELET VOLUME 10.2 fl (7.4-10.4); PLATELET 267 x1000/uL (130-400); RED BLOOD CELL COUNT 4.78 mill/uL (4.2-5.4); RED CELL DISTRIBUTION WIDTH 28.1 % (11.6-14.6)
[2017-07-27] MEDS: INSULIN LISPRO 100 UNITS/ML SUBCUT SCH ×3 (05:31→17:18)
[2017-07-27] MEDS: BLOOD SUGAR DIAGNOSTIC STRIP TEST SCH ×3 (05:32→17:09)
[2017-07-27] MEDS: MULTIVITAMINS,THER W-MINERALS TABLET PO SCH (09:28)
[2017-07-27] MEDS: METOPROLOL TARTRATE 25MG TABLET PO SCH ×2 (09:28→20:29)
[2017-07-27] MEDS: CALCIUM CARBONATE/VITAMIN D3 500MG TABLET PO SCH ×2 (09:28→16:24)
[2017-07-27] MEDS: AMLODIPINE 5MG TABLET PO SCH ×2 (09:28→20:30)
[2017-07-27] MEDS: ASPIRIN 81MG EC TABLET PO SCH (09:29)
[2017-07-27] MEDS: FUROSEMIDE 40MG/4ML VIAL IVP SCH (09:29)
[2017-07-27] MEDS: CITRIC ACID/SODIUM CITRATE SOLN 15ML UDC PO SCH ×3 (09:29→16:24)
[2017-07-27] MEDS: PANTOPRAZOLE SODIUM 40 MG/VIAL IV SCH (09:29)
[2017-07-27 09:37] LABS: ATYPICAL LYMPHOCYTES 1
[2017-07-27 09:38] LABS: PLATELET ESTIMATE NORMAL
[2017-07-27] MEDS: MEROPENEM 1000MG in NORMAL SALINE 100ML IV SCH (10:49)
[2017-07-27] MEDS: ENALAPRIL 2.5MG/2ML VIAL 2ML IV PRN ×2 (11:50→18:40)
[2017-07-27] MEDS ORDERED: POTASSIUM CHLORIDE INJ 40 MEQ in DEXT 5% WATER 500 ML IV SCH (13:00)
[2017-07-27] MEDS: CLONIDINE HCL 0.1MG/24HR PATCH TD SCH (13:54)
[2017-07-27] MEDS: HYDRALAZINE 20MG/ML VIAL IV PRN (16:28)
[2017-07-27] MEDS: DEXT 5%/0.45% NACL 1000ML 1,000 ML IV SCH (17:18)
[2017-07-27] MEDS: HYDROMORPHONE HCL/PF 2MG/ML CPJ IV PRN (20:35)
[2017-07-28] VITALS (37 sets, daily range): BP systolic 124–181; BP diastolic 66–103
[2017-07-28] MEDS: INSULIN LISPRO 100 UNITS/ML SUBCUT SCH ×4 (01:16→17:55)
[2017-07-28] MEDS: HYDROMORPHONE HCL/PF 2MG/ML CPJ IV PRN ×3 (01:17→11:23)
[2017-07-28] MEDS: IPRATROPIUM/ALBUTEROL 0.5-3(2.5)MG/3ML NEB HHN SCH ×5 (04:15→21:00)
[2017-07-28] MEDS: CLONIDINE 0.1MG TABLET PO SCH ×3 (05:35→23:10)
[2017-07-28] MEDS: BLOOD SUGAR DIAGNOSTIC STRIP TEST SCH ×4 (05:35→17:31)
[2017-07-28] MEDS: MEROPENEM 1000MG in NORMAL SALINE 100ML IV SCH (07:56)
[2017-07-28] MEDS: PANTOPRAZOLE SODIUM 40 MG/VIAL IV SCH (07:56)
[2017-07-28] MEDS: HYDRALAZINE 20MG/ML VIAL IV PRN (07:57)
[2017-07-28] MEDS: ENALAPRIL 2.5MG/2ML VIAL 2ML IV PRN (07:57)
[2017-07-28] MEDS: METOPROLOL TARTRATE 25MG TABLET PO SCH ×3 (09:00→22:12)
[2017-07-28] MEDS: CALCIUM CARBONATE/VITAMIN D3 500MG TABLET PO SCH ×3 (09:00→17:54)
[2017-07-28] MEDS: CITRIC ACID/SODIUM CITRATE SOLN 15ML UDC PO SCH ×4 (09:00→17:54)
[2017-07-28] MEDS: ASPIRIN 81MG EC TABLET PO SCH ×2 (09:00→11:28)
[2017-07-28] MEDS: MULTIVITAMINS,THER W-MINERALS TABLET PO SCH ×2 (09:00→11:28)
[2017-07-28] MEDS: AMLODIPINE 5MG TABLET PO SCH ×3 (09:00→22:12)
[2017-07-28 09:58] LABS: BASOPHILS % 1.3 % (0.0-2.0); EOSINOPHILS % 3.4 % (0.0-5.0); HEMATOCRIT. 28.7 % (36.0-48.0); HEMOGLOBIN. 9.4 g/dL (12.0-16.0); LYMPHOCYTES % 20.9 % (20.0-50.0); MEAN CORPUSCULAR HEMOGLOBIN 21.9 pg (28.0-32.0); MEAN CORPUSCULAR VOLUME 66.8 fL (81.0-99.0); MEAN PLATELET VOLUME 9.2 fl (7.4-10.4); MONOCYTES % 11.4 % (2.0-8.0); PLATELET 290 x1000/uL (130-400); RED BLOOD CELL COUNT 4.29 mill/uL (4.2-5.4); RED CELL DISTRIBUTION WIDTH 27.6 % (11.6-14.6)
[2017-07-28] MEDS: FUROSEMIDE 40MG/4ML VIAL IVP SCH (11:21)
[2017-07-28 12:33] LABS: PHOSPHORUS 4.3 mg/dL (2.5-4.9)
[2017-07-28] MEDS ORDERED: POTASSIUM CHLORIDE INJ 40 MEQ in DEXT 5% WATER 250 ML IV SCH (13:00)
[2017-07-28] MEDS: ACETAMINOPHEN 325MG TABLET PO PRN (22:12)
[2017-07-28] MEDS: TOTAL PARENTERAL NUTRITION 1,000 ML IV SCH (22:44)
[2017-07-29] VITALS (12 sets, daily range): BP systolic 138–185; BP diastolic 68–86
[2017-07-29] MEDS: IPRATROPIUM/ALBUTEROL 0.5-3(2.5)MG/3ML NEB HHN SCH ×6 (00:41→20:38)
[2017-07-29] MEDS: INSULIN LISPRO 100 UNITS/ML SUBCUT SCH ×5 (00:41→23:33)
[2017-07-29] MEDS: BLOOD SUGAR DIAGNOSTIC STRIP TEST SCH ×5 (00:42→23:24)
[2017-07-29] MEDS: HYDRALAZINE 20MG/ML VIAL IV PRN (00:54)
[2017-07-29] MEDS: CLONIDINE 0.1MG TABLET PO SCH ×3 (07:00→21:05)
[2017-07-29] MEDS: FUROSEMIDE 40MG/4ML VIAL IVP SCH (08:53)
[2017-07-29] MEDS: MEROPENEM 1000MG in NORMAL SALINE 100ML IV SCH (08:53)
[2017-07-29] MEDS: CITRIC ACID/SODIUM CITRATE SOLN 15ML UDC PO SCH ×2 (08:53→14:03)
[2017-07-29] MEDS: CALCIUM CARBONATE/VITAMIN D3 500MG TABLET PO SCH (08:54)
[2017-07-29] MEDS: ASPIRIN 81MG EC TABLET PO SCH (08:54)
[2017-07-29] MEDS: METOPROLOL TARTRATE 25MG TABLET PO SCH ×2 (08:54→21:05)
[2017-07-29] MEDS: MULTIVITAMINS,THER W-MINERALS TABLET PO SCH (08:54)
[2017-07-29] MEDS: PANTOPRAZOLE SODIUM 40 MG/VIAL IV SCH (08:59)
[2017-07-29] MEDS: AMLODIPINE 5MG TABLET PO SCH ×2 (08:59→21:05)
[2017-07-29] MEDS: ENALAPRIL 2.5MG/2ML VIAL 2ML IV PRN ×2 (10:23→23:31)
[2017-07-29] MEDS: TOTAL PARENTERAL NUTRITION 1,000 ML IV SCH ×2 (17:00→21:19)
[2017-07-29] MEDS: ACETAMINOPHEN 325MG TABLET PO PRN (17:18)
[2017-07-29] MEDS: DIPHENHYDRAMINE 50MG/ML VIAL IV PRN ×2 (18:32→23:31)
[2017-07-30] VITALS (12 sets, daily range): BP systolic 96–190; BP diastolic 31–90
[2017-07-30] MEDS: IPRATROPIUM/ALBUTEROL 0.5-3(2.5)MG/3ML NEB HHN SCH ×7 (00:07→23:19)
[2017-07-30] MEDS: HYDRALAZINE 20MG/ML VIAL IV PRN (01:22)
[2017-07-30] MEDS: CLONIDINE 0.1MG TABLET PO SCH ×3 (05:33→21:20)
[2017-07-30] MEDS: ENALAPRIL 2.5MG/2ML VIAL 2ML IV PRN ×2 (05:33→22:23)
[2017-07-30] MEDS: DIPHENHYDRAMINE 50MG/ML VIAL IV PRN (05:33)
[2017-07-30] MEDS: INSULIN LISPRO 100 UNITS/ML SUBCUT SCH ×4 (05:34→23:25)
[2017-07-30 07:33] LABS: CARBON DIOXIDE 26 mEq/L (21-32); CHLORIDE 108 mEq/L (98-107); HDL CHOLESTEROL 26 mg/dL (40-59); LDL CHOLESTEROL 131 mg/dL (5-100); PHOSPHORUS 2.9 mg/dL (2.5-4.9)
[2017-07-30] MEDS: ASPIRIN 81MG EC TABLET PO SCH (08:07)
[2017-07-30] MEDS: MEROPENEM 1000MG in NORMAL SALINE 100ML IV SCH ×2 (08:07→21:19)
[2017-07-30] MEDS: FUROSEMIDE 40MG/4ML VIAL IVP SCH (08:07)
[2017-07-30] MEDS: FAMOTIDINE 20MG/2ML VIAL IV SCH (08:07)
[2017-07-30] MEDS: AMLODIPINE 5MG TABLET PO SCH ×3 (08:07→21:19)
[2017-07-30] MEDS: METOPROLOL TARTRATE 25MG TABLET PO SCH ×2 (08:08→21:20)
[2017-07-30] MEDS ORDERED: POTASSIUM CHLORIDE INJ 40 MEQ in DEXT 5% WATER 250 ML IV SCH (09:00)
[2017-07-30] MEDS: BLOOD SUGAR DIAGNOSTIC STRIP TEST SCH ×4 (11:31→23:20)
[2017-07-30] MEDS: TOTAL PARENTERAL NUTRITION 1,000 ML IV SCH (11:40)
[2017-07-30 19:41] LABS: HEMATOCRIT. 30.3 % (36.0-48.0); HEMOGLOBIN. 9.8 g/dL (12.0-16.0); MEAN CORPUSCULAR HEMOGLOBIN 21.6 pg (28.0-32.0); MEAN CORPUSCULAR VOLUME 66.9 fL (81.0-99.0); MEAN PLATELET VOLUME 9.2 fl (7.4-10.4); PLATELET 382 x1000/uL (130-400); RED BLOOD CELL COUNT 4.53 mill/uL (4.2-5.4); RED CELL DISTRIBUTION WIDTH 27.4 % (11.6-14.6)
[2017-07-30 21:52] LABS: ATYPICAL LYMPHOCYTES 1; PLATELET ESTIMATE NORMAL
[2017-07-31] VITALS (14 sets, daily range): BP systolic 126–180; BP diastolic 58–87
[2017-07-31] MEDS: HYDRALAZINE 20MG/ML VIAL IV PRN ×2 (01:00→10:28)
[2017-07-31] MEDS: IPRATROPIUM/ALBUTEROL 0.5-3(2.5)MG/3ML NEB HHN SCH ×4 (03:26→20:00)
[2017-07-31] MEDS: BLOOD SUGAR DIAGNOSTIC STRIP TEST SCH ×3 (05:13→17:32)
[2017-07-31] MEDS: ENALAPRIL 2.5MG/2ML VIAL 2ML IV PRN (05:19)
[2017-07-31] MEDS: CLONIDINE 0.1MG TABLET PO SCH ×3 (05:20→21:29)
[2017-07-31] MEDS: INSULIN LISPRO 100 UNITS/ML SUBCUT SCH ×3 (05:21→17:48)
[2017-07-31 06:25] LABS: BASOPHILS % 0.5 % (0.0-2.0); EOSINOPHILS % 1.8 % (0.0-5.0); HEMATOCRIT. 28.7 % (36.0-48.0); HEMOGLOBIN. 9.4 g/dL (12.0-16.0); LYMPHOCYTES % 18.8 % (20.0-50.0); MEAN CORPUSCULAR HEMOGLOBIN 21.9 pg (28.0-32.0); MEAN CORPUSCULAR VOLUME 67.2 fL (81.0-99.0); MEAN PLATELET VOLUME 9.4 fl (7.4-10.4); MONOCYTES % 9.3 % (2.0-8.0); NEUTROPHILS % 69.6 % (40.0-76.0); PLATELET 360 x1000/uL (130-400); RED BLOOD CELL COUNT 4.27 mill/uL (4.2-5.4); RED CELL DISTRIBUTION WIDTH 27.3 % (11.6-14.6)
[2017-07-31] MEDS: ASPIRIN 81MG EC TABLET PO SCH (08:29)
[2017-07-31] MEDS: METOPROLOL TARTRATE 25MG TABLET PO SCH ×2 (08:29→21:29)
[2017-07-31] MEDS: AMLODIPINE 5MG TABLET PO SCH ×2 (08:29→21:28)
[2017-07-31] MEDS: FAMOTIDINE 20MG/2ML VIAL IV SCH (08:30)
[2017-07-31] MEDS: FUROSEMIDE 40MG/4ML VIAL IVP SCH (08:30)
[2017-07-31] MEDS: MEROPENEM 1000MG in NORMAL SALINE 100ML IV SCH (08:31)
[2017-07-31] MEDS: TOTAL PARENTERAL NUTRITION 1,000 ML IV SCH (08:32)
[2017-07-31] MEDS: DIPHENHYDRAMINE 50MG/ML VIAL IV PRN ×2 (10:28→17:53)
[2017-07-31] MEDS ORDERED: INSULIN LISPRO 100 UNITS/ML SUBCUT NR (12:30)
[2017-07-31] MEDS: ACETAMINOPHEN 325MG TABLET PO PRN (16:04)
[2017-08-01] VITALS (15 sets, daily range): BP systolic 115–159; BP diastolic 55–89
[2017-08-01] MEDS: BLOOD SUGAR DIAGNOSTIC STRIP TEST SCH ×5 (00:13→20:42)
[2017-08-01] MEDS: INSULIN LISPRO 100 UNITS/ML SUBCUT SCH ×5 (00:17→21:17)
[2017-08-01] MEDS: TOTAL PARENTERAL NUTRITION 1,000 ML IV SCH ×2 (01:47→07:20)
[2017-08-01] MEDS: IPRATROPIUM/ALBUTEROL 0.5-3(2.5)MG/3ML NEB HHN SCH ×6 (04:00→21:25)
[2017-08-01] MEDS: CLONIDINE 0.1MG TABLET PO SCH ×3 (05:18→22:24)
[2017-08-01] MEDS: AMLODIPINE 5MG TABLET PO SCH ×3 (09:00→21:20)
[2017-08-01] MEDS: FAMOTIDINE 20MG/2ML VIAL IV SCH (09:14)
[2017-08-01] MEDS: FUROSEMIDE 40MG/4ML VIAL IVP SCH (09:14)
[2017-08-01] MEDS: DOCUSATE SODIUM 250MG CAPSULE PO PRN (09:15)
[2017-08-01] MEDS: ASPIRIN 81MG EC TABLET PO SCH (09:15)
[2017-08-01] MEDS: METOPROLOL TARTRATE 25MG TABLET PO SCH ×2 (09:15→21:19)
[2017-08-01] MEDS ORDERED: SORBITOL 70% SOLN 30ML PO NR (11:45)
[2017-08-01] MEDS: SENNOSIDES/DOCUSATE SOD 8.6/50MG TABLET PO SCH (12:31)
[2017-08-01] MEDS: ACETAMINOPHEN 325MG TABLET PO PRN (13:08)
[2017-08-01] MEDS ORDERED: SORBITOL 70% SOLN 30ML PO PRN (16:00)
[2017-08-01] MEDS: DIPHENHYDRAMINE 50MG/ML VIAL IV PRN (21:49)
[2017-08-02] VITALS (17 sets, daily range): BP systolic 106–163; BP diastolic 31–80
[2017-08-02] MEDS: IPRATROPIUM/ALBUTEROL 0.5-3(2.5)MG/3ML NEB HHN SCH ×7 (04:00→23:50)
[2017-08-02] MEDS: CLONIDINE 0.1MG TABLET PO SCH ×3 (05:52→22:00)
[2017-08-02] MEDS: BLOOD SUGAR DIAGNOSTIC STRIP TEST SCH ×4 (06:02→21:00)
[2017-08-02] MEDS: INSULIN LISPRO 100 UNITS/ML SUBCUT SCH ×4 (07:03→21:00)
[2017-08-02] MEDS: SENNOSIDES/DOCUSATE SOD 8.6/50MG TABLET PO SCH (09:04)
[2017-08-02] MEDS: FUROSEMIDE 40MG/4ML VIAL IVP SCH (09:05)
[2017-08-02] MEDS: METOPROLOL TARTRATE 25MG TABLET PO SCH ×2 (09:05→20:53)
[2017-08-02] MEDS: AMLODIPINE 5MG TABLET PO SCH ×2 (09:05→20:54)
[2017-08-02] MEDS: ASPIRIN 81MG EC TABLET PO SCH (09:05)
[2017-08-02] MEDS: FAMOTIDINE 20MG/2ML VIAL IV SCH (09:05)
[2017-08-02 16:01] LABS: EOSINOPHILS % 4.4 % (0.0-5.0); HEMATOCRIT. 27.4 % (36.0-48.0); HEMOGLOBIN. 8.9 g/dL (12.0-16.0); LYMPHOCYTES % 26.7 % (20.0-50.0); MEAN CORPUSCULAR HEMOGLOBIN 21.8 pg (28.0-32.0); MEAN CORPUSCULAR VOLUME 67.3 fL (81.0-99.0); NEUTROPHILS % 57.9 % (40.0-76.0); PLATELET 310 x1000/uL (130-400); RED BLOOD CELL COUNT 4.07 mill/uL (4.2-5.4); RED CELL DISTRIBUTION WIDTH 26.9 % (11.6-14.6)
[2017-08-02] MEDS: SODIUM CHLORIDE 0.9% 1,000 ML IV SCH (23:30)
[2017-08-03] VITALS (10 sets, daily range): BP systolic 115–164; BP diastolic 65–77
[2017-08-03] MEDS: DIPHENHYDRAMINE 25MG CAPSULE PO PRN ×2 (00:31→14:39)
[2017-08-03] MEDS: IPRATROPIUM/ALBUTEROL 0.5-3(2.5)MG/3ML NEB HHN SCH ×3 (05:05→20:35)
[2017-08-03] MEDS: INSULIN LISPRO 100 UNITS/ML SUBCUT SCH ×4 (06:50→21:36)
[2017-08-03] MEDS: BLOOD SUGAR DIAGNOSTIC STRIP TEST SCH ×4 (06:52→21:13)
[2017-08-03] MEDS: CLONIDINE 0.1MG TABLET PO SCH ×3 (06:55→22:46)
[2017-08-03] MEDS: AMLODIPINE 5MG TABLET PO SCH ×2 (08:19→21:35)
[2017-08-03] MEDS: ASPIRIN 81MG EC TABLET PO SCH (08:19)
[2017-08-03] MEDS: SENNOSIDES/DOCUSATE SOD 8.6/50MG TABLET PO SCH (08:19)
[2017-08-03] MEDS: METOPROLOL TARTRATE 25MG TABLET PO SCH ×2 (08:19→21:35)
[2017-08-03] MEDS: CLONIDINE HCL 0.1MG/24HR PATCH TD SCH (08:20)
[2017-08-03] MEDS ORDERED: FAMOTIDINE 20MG TABLET PO SCH (09:00)
[2017-08-03] MEDS ORDERED: FUROSEMIDE 40MG TABLET PO SCH (09:00)
[2017-08-03] MEDS: NICOTINE 14MG PATCH TD SCH (13:34)
[2017-08-03] MEDS ORDERED: QUETIAPINE FUMARATE 25MG TABLET PO SCH ×3 (14:00→21:00)
[2017-08-03] MEDS: SODIUM CHLORIDE 0.9% 1,000 ML IV SCH (19:30)
[2017-08-03] MEDS: QUETIAPINE FUMARATE 25MG TABLET PO SCH (21:35)
[2017-08-04] VITALS (9 sets, daily range): BP systolic 115–166; BP diastolic 53–79
[2017-08-04] MEDS: IPRATROPIUM/ALBUTEROL 0.5-3(2.5)MG/3ML NEB HHN SCH ×5 (00:35→21:31)
[2017-08-04] MEDS: CLONIDINE 0.1MG TABLET PO SCH ×3 (06:00→22:55)
[2017-08-04] MEDS: INSULIN LISPRO 100 UNITS/ML SUBCUT SCH ×4 (06:32→22:01)
[2017-08-04] MEDS: BLOOD SUGAR DIAGNOSTIC STRIP TEST SCH ×4 (06:34→21:55)
[2017-08-04 07:47] LABS: BASOPHILS % 1.1 % (0.0-2.0); EOSINOPHILS % 5.6 % (0.0-5.0); HEMATOCRIT. 26.7 % (36.0-48.0); HEMOGLOBIN. 8.7 g/dL (12.0-16.0); LYMPHOCYTES % 32.6 % (20.0-50.0); MEAN CORPUSCULAR VOLUME 67.5 fL (81.0-99.0); MEAN PLATELET VOLUME 10.2 fl (7.4-10.4); MONOCYTES % 11.8 % (2.0-8.0); NEUTROPHILS % 48.9 % (40.0-76.0); PLATELET 319 x1000/uL (130-400); RED BLOOD CELL COUNT 3.96 mill/uL (4.2-5.4); RED CELL DISTRIBUTION WIDTH 26.7 % (11.6-14.6)
[2017-08-04] MEDS: ASPIRIN 81MG EC TABLET PO SCH (08:40)
[2017-08-04] MEDS: NICOTINE 14MG PATCH TD SCH (08:41)
[2017-08-04] MEDS: AMLODIPINE 5MG TABLET PO SCH ×2 (08:41→21:54)
[2017-08-04] MEDS: METOPROLOL TARTRATE 25MG TABLET PO SCH ×2 (08:41→21:54)
[2017-08-04] MEDS: QUETIAPINE FUMARATE 25MG TABLET PO SCH ×2 (08:41→21:55)
[2017-08-04] MEDS: DIPHENHYDRAMINE 25MG CAPSULE PO PRN ×2 (08:42→22:55)
[2017-08-04] MEDS: ACETAMINOPHEN 325MG TABLET PO PRN (14:26)
[2017-08-05] MEDS: IPRATROPIUM/ALBUTEROL 0.5-3(2.5)MG/3ML NEB HHN SCH ×5 (04:00→21:50)
[2017-08-05] MEDS: CLONIDINE 0.1MG TABLET PO SCH ×3 (06:00→22:00)
[2017-08-05] MEDS: INSULIN LISPRO 100 UNITS/ML SUBCUT SCH ×5 (06:23→22:43)
[2017-08-05] MEDS: BLOOD SUGAR DIAGNOSTIC STRIP TEST SCH ×5 (06:23→21:30)
[2017-08-05 07:45] VITALS: BP 157/128
[2017-08-05] MEDS: ASPIRIN 81MG EC TABLET PO SCH (09:12)
[2017-08-05] MEDS: AMLODIPINE 5MG TABLET PO SCH ×2 (09:12→21:27)
[2017-08-05] MEDS: QUETIAPINE FUMARATE 25MG TABLET PO SCH ×2 (09:13→17:59)
[2017-08-05] MEDS: METOPROLOL TARTRATE 25MG TABLET PO SCH ×2 (09:14→21:26)
[2017-08-05] MEDS: NICOTINE 14MG PATCH TD SCH (09:20)
[2017-08-05 09:32] VITALS: BP 152/74
[2017-08-05] MEDS: PSYLLIUM SEED PACKET PO PRN (10:18)
[2017-08-05 13:02] LABS: BASOPHILS % 1.8 % (0.0-2.0); HEMATOCRIT. 26.9 % (36.0-48.0); HEMOGLOBIN. 8.6 g/dL (12.0-16.0); LYMPHOCYTES % 38.4 % (20.0-50.0); MEAN CORPUSCULAR HEMOGLOBIN 21.6 pg (28.0-32.0); MEAN CORPUSCULAR VOLUME 67.8 fL (81.0-99.0); MEAN PLATELET VOLUME 9.9 fl (7.4-10.4); MONOCYTES % 9.3 % (2.0-8.0); NEUTROPHILS % 46.5 % (40.0-76.0); PLATELET 306 x1000/uL (130-400); RED BLOOD CELL COUNT 3.97 mill/uL (4.2-5.4); RED CELL DISTRIBUTION WIDTH 27.5 % (11.6-14.6)
[2017-08-05 18:00] VITALS: BP 155/65
[2017-08-05] MEDS: ACETAMINOPHEN 325MG TABLET PO PRN (18:20)
[2017-08-05 20:00] VITALS: BP 144/91
[2017-08-05] MEDS ORDERED: SENNOSIDES/DOCUSATE SOD 8.6/50MG TABLET PO PRN (21:00)
[2017-08-06] VITALS: BP 144/53
[2017-08-06 04:00] VITALS: BP 174/72
[2017-08-06] MEDS: IPRATROPIUM/ALBUTEROL 0.5-3(2.5)MG/3ML NEB HHN SCH ×3 (04:00→20:51)
[2017-08-06] MEDS: CLONIDINE 0.1MG TABLET PO SCH ×3 (05:04→22:30)
[2017-08-06] MEDS: DIPHENHYDRAMINE 25MG CAPSULE PO PRN ×3 (05:08→22:28)
[2017-08-06] MEDS: BLOOD SUGAR DIAGNOSTIC STRIP TEST SCH ×4 (06:20→21:00)
[2017-08-06 07:01] LABS: HEMATOCRIT. 29.8 % (36.0-48.0); HEMOGLOBIN. 9.7 g/dL (12.0-16.0); LYMPHOCYTES % 36.7 % (20.0-50.0); MEAN CORPUSCULAR VOLUME 67.4 fL (81.0-99.0); MEAN PLATELET VOLUME 9.7 fl (7.4-10.4); MONOCYTES % 9.2 % (2.0-8.0); NEUTROPHILS % 47.1 % (40.0-76.0); PLATELET 321 x1000/uL (130-400); RED BLOOD CELL COUNT 4.42 mill/uL (4.2-5.4); RED CELL DISTRIBUTION WIDTH 26.9 % (11.6-14.6)
[2017-08-06 08:00] VITALS: BP 154/76
[2017-08-06] MEDS: NICOTINE 14MG PATCH TD SCH (08:44)
[2017-08-06] MEDS: ASPIRIN 81MG EC TABLET PO SCH (08:49)
[2017-08-06] MEDS: QUETIAPINE FUMARATE 25MG TABLET PO SCH ×2 (08:49→17:35)
[2017-08-06] MEDS: AMLODIPINE 5MG TABLET PO SCH ×2 (08:49→22:28)
[2017-08-06] MEDS: METOPROLOL TARTRATE 25MG TABLET PO SCH ×2 (08:49→22:29)
[2017-08-06] MEDS: INSULIN LISPRO 100 UNITS/ML SUBCUT SCH ×4 (08:56→21:45)
[2017-08-06 16:00] VITALS: BP 174/81
[2017-08-06 20:00] VITALS: BP 135/61
[2017-08-07] VITALS: BP 118/72
[2017-08-07] MEDS: IPRATROPIUM/ALBUTEROL 0.5-3(2.5)MG/3ML NEB HHN SCH ×5 (01:01→16:00)
[2017-08-07 04:00] VITALS: BP 170/73
[2017-08-07] MEDS: BLOOD SUGAR DIAGNOSTIC STRIP TEST SCH ×4 (06:31→21:28)
[2017-08-07] MEDS: CLONIDINE 0.1MG TABLET PO SCH ×3 (06:32→22:00)
[2017-08-07] MEDS: INSULIN LISPRO 100 UNITS/ML SUBCUT SCH ×4 (06:32→21:27)
[2017-08-07 08:00] VITALS: BP 142/77
[2017-08-07] MEDS: DOCUSATE SODIUM 250MG CAPSULE PO PRN (09:04)
[2017-08-07] MEDS: ASPIRIN 81MG EC TABLET PO SCH (09:04)
[2017-08-07] MEDS: QUETIAPINE FUMARATE 25MG TABLET PO SCH ×2 (09:05→17:00)
[2017-08-07] MEDS: METOPROLOL TARTRATE 25MG TABLET PO SCH ×2 (09:05→21:00)
[2017-08-07] MEDS: AMLODIPINE 5MG TABLET PO SCH ×2 (09:05→21:00)
[2017-08-07] MEDS: NICOTINE 14MG PATCH TD SCH (09:59)
[2017-08-07 12:00] VITALS: BP 130/70
[2017-08-07] MEDS ORDERED: HYDRALAZINE 10 MG in SODIUM CHLORIDE 0.9% 50 ML IV PRN (13:15)
[2017-08-07] MEDS ORDERED: ENALAPRIL IV PRN (13:15)
[2017-08-07] MEDS ORDERED: SODIUM CHLORIDE 0.9% IV PRN (13:15)
[2017-08-07 16:00] VITALS: BP 125/77
[2017-08-07] MEDS ORDERED: LACTULOSE 20G/30ML UDC PO NR (17:15)
[2017-08-07 20:00] VITALS: BP 125/56
[2017-08-07] MEDS: DIPHENHYDRAMINE 25MG CAPSULE PO PRN (21:06)
[2017-08-07] MEDS: ACETAMINOPHEN 325MG TABLET PO PRN (21:06)
[2017-08-08] MEDS: IPRATROPIUM/ALBUTEROL 0.5-3(2.5)MG/3ML NEB HHN SCH ×6 (00:20→20:00)
[2017-08-08 00:45] VITALS: BP 130/62
[2017-08-08 04:00] VITALS: BP 128/68
[2017-08-08] MEDS: CLONIDINE 0.1MG TABLET PO SCH ×3 (07:12→22:00)
[2017-08-08] MEDS: BLOOD SUGAR DIAGNOSTIC STRIP TEST SCH ×4 (07:12→21:00)
[2017-08-08] MEDS: INSULIN LISPRO 100 UNITS/ML SUBCUT SCH ×4 (07:20→21:00)
[2017-08-08 08:00] VITALS: BP 122/71
[2017-08-08] MEDS: QUETIAPINE FUMARATE 25MG TABLET PO SCH ×2 (09:00→16:51)
[2017-08-08] MEDS: METOPROLOL TARTRATE 25MG TABLET PO SCH ×2 (09:00→21:00)
[2017-08-08] MEDS: ASPIRIN 81MG EC TABLET PO SCH (09:00)
[2017-08-08] MEDS: AMLODIPINE 5MG TABLET PO SCH ×2 (09:00→21:00)
[2017-08-08] MEDS: PSYLLIUM SEED PACKET PO PRN (10:07)
[2017-08-08] MEDS: POLYETHYLENE GLYCOL 3350 (17GM) 1 DOSE PACK PO SCH (10:07)
[2017-08-08] MEDS: NICOTINE 14MG PATCH TD SCH (10:20)
[2017-08-08 12:00] VITALS: BP 175/75
[2017-08-08] MEDS: DIPHENHYDRAMINE 25MG CAPSULE PO PRN (16:51)
[2017-08-08] MEDS: ONDANSETRON HCL 4MG TABLET PO PRN (16:51)
[2017-08-08 20:00] VITALS: BP 121/64
[2017-08-09] VITALS: BP 147/74
[2017-08-09] MEDS: IPRATROPIUM/ALBUTEROL 0.5-3(2.5)MG/3ML NEB HHN SCH ×4 (00:20→21:30)
[2017-08-09 04:00] VITALS: BP 160/50
[2017-08-09] MEDS: CLONIDINE 0.1MG TABLET PO SCH ×3 (06:12→21:58)
[2017-08-09 08:00] VITALS: BP 129/82
[2017-08-09] MEDS: BLOOD SUGAR DIAGNOSTIC STRIP TEST SCH ×4 (08:06→21:00)
[2017-08-09] MEDS: NICOTINE 14MG PATCH TD SCH (09:00)
[2017-08-09] MEDS: INSULIN LISPRO 100 UNITS/ML SUBCUT SCH ×4 (09:11→22:50)
[2017-08-09] MEDS: QUETIAPINE FUMARATE 25MG TABLET PO SCH ×2 (09:12→17:04)
[2017-08-09] MEDS: AMLODIPINE 5MG TABLET PO SCH ×2 (09:12→21:58)
[2017-08-09] MEDS: ASPIRIN 81MG EC TABLET PO SCH (09:12)
[2017-08-09] MEDS: METOPROLOL TARTRATE 25MG TABLET PO SCH ×2 (09:13→22:05)
[2017-08-09] MEDS: POLYETHYLENE GLYCOL 3350 (17GM) 1 DOSE PACK PO SCH (09:13)
[2017-08-09 12:00] VITALS: BP 166/71
[2017-08-09 16:00] VITALS: BP 167/68
[2017-08-09] MEDS: ONDANSETRON HCL 4MG TABLET PO PRN (17:04)
[2017-08-09] MEDS: DIPHENHYDRAMINE 25MG CAPSULE PO PRN (22:29)
[2017-08-10] VITALS: BP 132/61
[2017-08-10 04:00] VITALS: BP 157/64
[2017-08-10] MEDS: CLONIDINE 0.1MG TABLET PO SCH (06:24)
[2017-08-10] MEDS: BLOOD SUGAR DIAGNOSTIC STRIP TEST SCH ×2 (06:31→12:20)
[2017-08-10] MEDS: INSULIN LISPRO 100 UNITS/ML SUBCUT SCH ×2 (06:47→12:20)
[2017-08-10 08:00] VITALS: BP 153/75
[2017-08-10] MEDS: ASPIRIN 81MG EC TABLET PO SCH (08:44)
[2017-08-10] MEDS: QUETIAPINE FUMARATE 25MG TABLET PO SCH (08:44)
[2017-08-10] MEDS: METOPROLOL TARTRATE 25MG TABLET PO SCH (08:45)
[2017-08-10] MEDS: AMLODIPINE 5MG TABLET PO SCH (08:45)
[2017-08-10] MEDS: NICOTINE 14MG PATCH TD SCH (08:49)
[2017-08-10] MEDS: POLYETHYLENE GLYCOL 3350 (17GM) 1 DOSE PACK PO SCH (08:49)
[2017-08-10 12:44] VITALS: BP 153/75
== END 2017-08-10 13:05 | DRG 710 ==
LOC: ER 23:30 → EDBEDREQSVC 07-17 01:46 → EDBEDREQ 07-17 01:52 → 6WST 07-17 04:40 → ENRESERV 07-17 05:29 → 6WST 07-17 07:39 → CVICU 07-23 12:45 → 3WST 07-28 12:30 → 6EST 08-05 17:18
PROVIDERS: ADMIT Internal Medicine Nephrology; ATTEND Internal Medicine Nephrology
PROC: 30233N1 Transfusion of Nonautologous Red Blood Cells into Peripheral Vein, Percutaneous Approach (ICD-10-PCS; 2017-07-18)
PROC: 5A1945Z Respiratory Ventilation, 24-96 Consecutive Hours (ICD-10-PCS; 2017-07-23)
PROC: 0DTF0ZZ Resection of Right Large Intestine, Open Approach (ICD-10-PCS; principal; 2017-07-23 09:10)
PROC: 02HV33Z Insertion of Infusion Device into Superior Vena Cava, Percutaneous Approach (ICD-10-PCS; 2017-07-24)
PROC: B548ZZA Ultrasonography of Superior Vena Cava, Guidance (ICD-10-PCS; 2017-07-24)
DX: A41.9 Sepsis, unspecified organism (principal); N17.0 Acute kidney failure with tubular necrosis; J96.00 Acute respiratory failure, unspecified whether with hypoxia or hypercapnia; E43 Unspecified severe protein-calorie malnutrition; G92 Toxic encephalopathy; K65.1 Peritoneal abscess; K55.049 Acute infarction of large intestine, extent unspecified; K55.9 Vascular disorder of intestine, unspecified; E87.2 Acidosis; I27.2 Other secondary pulmonary hypertension; N18.4 Chronic kidney disease, stage 4 (severe); E86.1 Hypovolemia; I12.9 Hypertensive chronic kidney disease with stage 1 through stage 4 chronic kidney disease, or unspecified chronic kidney disease; H54.8 Legal blindness, as defined in USA; M47.9 Spondylosis, unspecified; K92.2 Gastrointestinal hemorrhage, unspecified; K21.9 Gastro-esophageal reflux disease without esophagitis; D63.8 Anemia in other chronic diseases classified elsewhere; E87.70 Fluid overload, unspecified; E03.9 Hypothyroidism, unspecified; E87.5 Hyperkalemia; E11.22 Type 2 diabetes mellitus with diabetic chronic kidney disease; F17.200 Nicotine dependence, unspecified, uncomplicated; H40.9 Unspecified glaucoma; G31.9 Degenerative disease of nervous system, unspecified; K59.00 Constipation, unspecified; N39.0 Urinary tract infection, site not specified; Z53.31 Laparoscopic surgical procedure converted to open procedure; I69.341 Monoplegia of lower limb following cerebral infarction affecting right dominant side; Z59.0 Homelessness; Z79.4 Long term (current) use of insulin; Z68.21 Body mass index [BMI] 21.0-21.9, adult
CPT/HCPCS: 36415; 36556; 36600; 70450; 71010; 73706; 74000; 74176; 76937; 80048; 80053; 80061; 80076; 80202; 81001; 82270; 82375; 82728; 82805; 82962; 83036; 83540; 83550; 83690; 83735; 84100; 84145; 84439; 84443; 84478; 84481; 84484; 84703; 85014; 85018; 85025; 85610; 85651; 86078; 86850; 86900; 86920; 87040; 87070; 87086; 87186; 88309; 92610; 93005; 93970; 94002; 94003; 94640; 96374; 96375; 97116; 97163; 97166; 97530; 99285; C1725; C9113; J0295; J0330; J0360; J0692; J1100; J1170; J1200; J1642; J1644; J1650; J1815; J1940; J1956; J2185; J2250; J2270; J2405; J2704; J3010; J3370; J3480; J3490; J7030; J7040; J7050; J7060; J7070; J7620; P9016; Q0162; Q0163; A4315

== ENCOUNTER 2018-04-27 16:41 | Inpatient (IN) | payer MEDICAID ==
[~2018-04-27] VITALS: Ht 162.6 cm; Wt 110.2 kg
[~2018-04-27 16:41] MED LIST changes: -HUM10VIA8 SQ; -Nifedipine PO
[2018-04-27] MEDS ORDERED: ACETAMINOPHEN 325MG TABLET PO STA (17:09)
[2018-04-27] MEDS ORDERED: SODIUM CHLORIDE 0.9% 1000ML BAG (SEPSIS BOLUS) IV ONE (17:15)
[2018-04-27 17:44] LABS: BASOPHILS % 0.8 % (0.0-2.0); EOSINOPHILS % 2.9 % (0.0-5.0); HEMATOCRIT. 25.8 % (36.0-48.0); HEMOGLOBIN. 8.4 g/dL (12.0-16.0); LYMPHOCYTES % 36.2 % (20.0-50.0); MEAN CORPUSCULAR HEMOGLOBIN 19.5 pg (28.0-32.0); MEAN CORPUSCULAR VOLUME 59.9 fL (81.0-99.0); MEAN PLATELET VOLUME 9.9 fl (7.4-10.4); MONOCYTES % 6.1 % (2.0-8.0); PLATELET 205 x1000/uL (130-400); RED BLOOD CELL COUNT 4.31 mill/uL (4.2-5.4); RED CELL DISTRIBUTION WIDTH 17.2 % (11.6-14.6)
[2018-04-27 17:47] LABS: CHLORIDE 116 mEq/L (98-107)
[2018-04-27 17:48] LABS: INR 1.1; PROTHROMBIN TIME 11.8 sec (9.4-11.6)
[2018-04-27 18:00] LABS: PLATELET ESTIMATE NORMAL
[2018-04-27 19:12] LABS: CLARITY URINE CLOUDY (CLEAR); COLOR URINE YELLOW (YELLOW); KETONES URINE NEGATIVE (NEGATIVE); LEUKOCYTE ESTERASE URINE NEGATIVE (NEGATIVE); NITRITE URINE NEGATIVE (NEGATIVE); OCCULT BLOOD URINE 1+ (NEGATIVE); PH URINE 5.5 (4.5-8.0); PROTEIN URINE 4+ (NEGATIVE); SPECIFIC GRAVITY URINE 1.018 (1.005-1.030)
[2018-04-27] MEDS ORDERED: PIPERACILLIN/TAZ 3.375G PREMIX 50 ML IV ONE (19:30)
[2018-04-27] MEDS ORDERED: VANCOMYCIN 1 G PREMIX 200 ML IV ONE (19:30)
[2018-04-27 21:20] VITALS: BP 175/72
[2018-04-27 21:30] VITALS: BP 175/72
[2018-04-27] MEDS ORDERED: DIPHENHYDRAMINE 50MG/ML VIAL IV PRN (22:15)
[2018-04-27] MEDS ORDERED: DEXTROSE 50% WATER 50ML SYRINGE IV PRN (22:15)
[2018-04-27] MEDS: CLONIDINE 0.1MG TABLET PO PRN (22:45)
[2018-04-27] MEDS: ACETAMINOPHEN 325MG TABLET PO PRN (22:45)
[2018-04-27] MEDS: ZOLPIDEM TARTRATE 5MG TABLET PO PRN (22:45)
[2018-04-27] MEDS: CEFTRIAXONE 1 G PREMIX 50 ML IV SCH (23:17)
[2018-04-28 04:00] VITALS: BP 162/75
[2018-04-28] MEDS: ACETAMINOPHEN 325MG TABLET PO PRN ×2 (04:26→10:05)
[2018-04-28] MEDS: BLOOD SUGAR DIAGNOSTIC STRIP TEST SCH ×4 (05:49→21:00)
[2018-04-28] MEDS: INSULIN LISPRO 100 UNITS/ML SUBCUT SCH ×4 (05:50→21:00)
[2018-04-28 06:16] LABS: BASOPHILS % 0.7 % (0.0-2.0); EOSINOPHILS % 4.6 % (0.0-5.0); HEMATOCRIT. 25.7 % (36.0-48.0); HEMOGLOBIN. 8.4 g/dL (12.0-16.0); LYMPHOCYTES % 31.8 % (20.0-50.0); MEAN CORPUSCULAR HEMOGLOBIN 19.6 pg (28.0-32.0); MEAN CORPUSCULAR VOLUME 60.3 fL (81.0-99.0); MEAN PLATELET VOLUME 9.4 fl (7.4-10.4); MONOCYTES % 8.4 % (2.0-8.0); NEUTROPHILS % 54.5 % (40.0-76.0); PLATELET 208 x1000/uL (130-400); RED BLOOD CELL COUNT 4.26 mill/uL (4.2-5.4); RED CELL DISTRIBUTION WIDTH 17.4 % (11.6-14.6)
[2018-04-28 08:00] VITALS: BP 142/45
[2018-04-28] MEDS: AMLODIPINE 10MG TABLET PO SCH (10:04)
[2018-04-28 12:00] VITALS: BP 149/76
[2018-04-28] MEDS ORDERED: DIPHENOXYLATE/ATROPINE 2.5/0.025MG TABLET PO PRN (12:15)
[2018-04-28] MEDS: HYDROCODONE/ACETAMINOPHEN 5/325MG TABLET PO PRN ×2 (12:29→20:30)
[2018-04-28 16:00] VITALS: BP 139/77
[2018-04-28 20:00] VITALS: BP 175/75
[2018-04-29] VITALS: BP 179/83
[2018-04-29] MEDS: CEFTRIAXONE 1 G PREMIX 50 ML IV SCH (00:59)
[2018-04-29] MEDS: ZOLPIDEM TARTRATE 5MG TABLET PO PRN ×2 (01:00→21:35)
[2018-04-29] MEDS: HYDROCODONE/ACETAMINOPHEN 5/325MG TABLET PO PRN ×3 (03:26→20:44)
[2018-04-29 04:00] VITALS: BP 165/80
[2018-04-29] MEDS: INSULIN LISPRO 100 UNITS/ML SUBCUT SCH ×4 (06:06→20:47)
[2018-04-29] MEDS: BLOOD SUGAR DIAGNOSTIC STRIP TEST SCH ×4 (06:06→20:47)
[2018-04-29 08:00] VITALS: BP 163/76
[2018-04-29] MEDS: AMLODIPINE 10MG TABLET PO SCH (08:41)
[2018-04-29 12:00] VITALS: BP 180/78
[2018-04-29] MEDS: HYDRALAZINE HCL 50MG TABLET PO SCH ×2 (12:59→21:35)
[2018-04-29] MEDS: LEVOFLOXACIN 500MG TABLET PO SCH (12:59)
[2018-04-29 16:00] VITALS: BP 166/85
[2018-04-29] MEDS: DIPHENHYDRAMINE 25MG CAPSULE PO PRN (16:14)
[2018-04-29] MEDS: CLONIDINE 0.1MG TABLET PO PRN (17:29)
[2018-04-29 20:00] VITALS: BP 159/73
[2018-04-30] VITALS: BP 166/76
[2018-04-30] MEDS: CLONIDINE 0.1MG TABLET PO PRN (02:04)
[2018-04-30] MEDS: DIPHENHYDRAMINE 25MG CAPSULE PO PRN (02:04)
[2018-04-30 04:00] VITALS: BP 160/58
[2018-04-30] MEDS: HYDRALAZINE HCL 50MG TABLET PO SCH ×3 (05:44→20:53)
[2018-04-30] MEDS: BLOOD SUGAR DIAGNOSTIC STRIP TEST SCH ×4 (05:49→20:56)
[2018-04-30] MEDS: INSULIN LISPRO 100 UNITS/ML SUBCUT SCH ×4 (05:50→21:07)
[2018-04-30 08:00] VITALS: BP 151/69
[2018-04-30] MEDS: AMLODIPINE 10MG TABLET PO SCH (09:14)
[2018-04-30] MEDS: HYDROCODONE/ACETAMINOPHEN 5/325MG TABLET PO PRN ×2 (09:28→21:08)
[2018-04-30 12:00] VITALS: BP 135/57
[2018-04-30 20:00] VITALS: BP 147/78
[2018-04-30] MEDS: ZOLPIDEM TARTRATE 5MG TABLET PO PRN (21:07)
[2018-05-01] VITALS (9 sets, daily range): BP systolic 111–139; BP diastolic 46–80
[2018-05-01] MEDS: HYDRALAZINE HCL 50MG TABLET PO SCH ×3 (05:51→21:20)
[2018-05-01] MEDS: BLOOD SUGAR DIAGNOSTIC STRIP TEST SCH ×4 (05:56→21:25)
[2018-05-01] MEDS: INSULIN LISPRO 100 UNITS/ML SUBCUT SCH ×4 (05:57→21:00)
[2018-05-01] MEDS: HYDROCODONE/ACETAMINOPHEN 5/325MG TABLET PO PRN ×2 (06:18→21:21)
[2018-05-01] MEDS ORDERED: REGADENOSON 0.4 MG/5 ML IV ONE (07:50)
[2018-05-01] MEDS: AMLODIPINE 10MG TABLET PO SCH (09:29)
[2018-05-01] MEDS: DIPHENHYDRAMINE 25MG CAPSULE PO PRN (09:29)
[2018-05-01] MEDS: LEVOFLOXACIN 500MG TABLET PO SCH (11:51)
[2018-05-01] MEDS: ZOLPIDEM TARTRATE 5MG TABLET PO PRN (21:20)
[2018-05-02] VITALS (8 sets, daily range): BP systolic 117–158; BP diastolic 55–79
[2018-05-02] MEDS: HYDRALAZINE HCL 50MG TABLET PO SCH ×3 (06:19→22:42)
[2018-05-02] MEDS: HYDROCODONE/ACETAMINOPHEN 5/325MG TABLET PO PRN ×2 (06:26→12:04)
[2018-05-02] MEDS: BLOOD SUGAR DIAGNOSTIC STRIP TEST SCH ×4 (06:28→21:00)
[2018-05-02] MEDS: INSULIN LISPRO 100 UNITS/ML SUBCUT SCH ×4 (06:30→21:00)
[2018-05-02] MEDS: AMLODIPINE 10MG TABLET PO SCH ×2 (09:54→17:11)
[2018-05-02] MEDS: DIPHENHYDRAMINE 25MG CAPSULE PO PRN (12:06)
[2018-05-02] MEDS ORDERED: HYDROCODONE/ACETAMINOPHEN 5/325MG TABLET PO PRN (13:30)
[2018-05-02 13:31] LABS: HEMATOCRIT 24.8 % (36.0-48.0)
[2018-05-02] MEDS: GABAPENTIN 300MG CAPSULE PO SCH ×2 (17:11→22:42)
[2018-05-03] VITALS: BP 149/71
[2018-05-03] MEDS: HYDROCODONE/ACETAMINOPHEN 5/325MG TABLET PO PRN ×2 (03:42→18:54)
[2018-05-03] MEDS: DIPHENHYDRAMINE 25MG CAPSULE PO PRN ×3 (03:42→21:33)
[2018-05-03 04:00] VITALS: BP 151/68
[2018-05-03] MEDS: HYDRALAZINE HCL 50MG TABLET PO SCH (06:00)
[2018-05-03] MEDS: GABAPENTIN 300MG CAPSULE PO SCH ×3 (06:00→21:32)
[2018-05-03] MEDS: BLOOD SUGAR DIAGNOSTIC STRIP TEST SCH ×4 (06:20→21:13)
[2018-05-03 07:05] LABS: BASOPHILS % 0.5 % (0.0-2.0); EOSINOPHILS % 4.9 % (0.0-5.0); HEMATOCRIT. 23.7 % (36.0-48.0); HEMOGLOBIN. 7.6 g/dL (12.0-16.0); LYMPHOCYTES % 34.3 % (20.0-50.0); MEAN CORPUSCULAR HEMOGLOBIN 19.2 pg (28.0-32.0); MONOCYTES % 5.7 % (2.0-8.0); NEUTROPHILS % 54.6 % (40.0-76.0); RED BLOOD CELL COUNT 3.95 mill/uL (4.2-5.4)
[2018-05-03] MEDS: INSULIN LISPRO 100 UNITS/ML SUBCUT SCH ×4 (07:15→21:00)
[2018-05-03 08:00] VITALS: BP 140/68
[2018-05-03 12:00] VITALS: BP 170/82
[2018-05-03 12:15] LABS: PLATELET 181 x1000/uL (130-400)
[2018-05-03] MEDS: LEVOFLOXACIN 500MG TABLET PO SCH (12:53)
[2018-05-03] MEDS: HYDRALAZINE HCL 25MG TABLET PO SCH ×2 (12:54→21:32)
[2018-05-03 16:00] VITALS: BP 176/82
[2018-05-03 16:34] LABS: CREATINE KINASE 135 IU/L (26-192)
[2018-05-03] MEDS: CLONIDINE 0.1MG TABLET PO PRN (17:16)
[2018-05-03 20:00] VITALS: BP 172/75
[2018-05-03] MEDS: ACETAMINOPHEN 325MG TABLET PO PRN (21:32)
[2018-05-04] VITALS: BP 142/84
[2018-05-04] MEDS: HYDROCODONE/ACETAMINOPHEN 5/325MG TABLET PO PRN ×3 (00:37→10:49)
[2018-05-04 04:00] VITALS: BP 141/61
[2018-05-04] MEDS: HYDRALAZINE HCL 25MG TABLET PO SCH ×3 (06:18→21:55)
[2018-05-04] MEDS: GABAPENTIN 300MG CAPSULE PO SCH ×3 (06:19→21:55)
[2018-05-04] MEDS: INSULIN LISPRO 100 UNITS/ML SUBCUT SCH ×4 (06:19→21:00)
[2018-05-04] MEDS: BLOOD SUGAR DIAGNOSTIC STRIP TEST SCH ×4 (06:19→21:59)
[2018-05-04 08:00] VITALS: BP 126/68
[2018-05-04] MEDS: CITRIC ACID/SODIUM CITRATE SOLN 30ML UDC PO SCH ×3 (08:46→17:26)
[2018-05-04] MEDS: AMLODIPINE 10MG TABLET PO SCH (08:46)
[2018-05-04] MEDS: SODIUM CHLORIDE 0.45% 1,000 ML IV SCH (10:22)
[2018-05-04 10:58] LABS: BG BASE EXCESS -7.7 mmol/L (-2.0-2.0); BG CARBOXYHEMOGLOBIN 0.9 % (0.5-1.5); BG FRACTION INSPIRED OXYGEN 21; BG HCO3 ACT 17.1 mmol/L (22.0-26.0); BG METHEMOGLOBIN 0.2 % (0.0-1.5); BG OXYHEMOGLOBIN 95.9 % (94.0-97.0); BG PCO2 31.9 mmHg (35.0-45.0); BG PH 7.348 (7.350-7.450); BG PO2 111.2 mmHg (75.0-100.0); BG SAMPLE SITE RIGHT BRACHIAL; BG VENT MODE ROOM AIR
[2018-05-04 12:28] VITALS: BP 142/72
[2018-05-04 16:05] VITALS: BP 157/78
[2018-05-04] MEDS: OMEPRAZOLE 20MG CAPSULE EXTENDED RELEASE PO SCH (17:26)
[2018-05-04 19:55] LABS: CHLORIDE 112 mEq/L (98-107)
[2018-05-04 20:15] LABS: BASOPHILS % 0.6 % (0.0-2.0); EOSINOPHILS % 5.8 % (0.0-5.0); HEMATOCRIT. 23.5 % (36.0-48.0); HEMOGLOBIN. 7.5 g/dL (12.0-16.0); LYMPHOCYTES % 42.4 % (20.0-50.0); MEAN CORPUSCULAR HEMOGLOBIN 19.3 pg (28.0-32.0); MEAN CORPUSCULAR VOLUME 60.1 fL (81.0-99.0); MEAN PLATELET VOLUME 9.5 fl (7.4-10.4); MONOCYTES % 6.4 % (2.0-8.0); NEUTROPHILS % 44.8 % (40.0-76.0); PLATELET 176 x1000/uL (130-400); RED BLOOD CELL COUNT 3.92 mill/uL (4.2-5.4); RED CELL DISTRIBUTION WIDTH 18.2 % (11.6-14.6)
[2018-05-04 21:35] VITALS: BP 132/64
[2018-05-04 23:04] LABS: PLATELET ESTIMATE NORMAL
[2018-05-05] VITALS: BP 120/53
[2018-05-05] MEDS: HYDROCODONE/ACETAMINOPHEN 5/325MG TABLET PO PRN ×3 (00:33→20:23)
[2018-05-05 04:00] VITALS: BP 135/66
[2018-05-05] MEDS: SODIUM CHLORIDE 0.45% 1,000 ML IV SCH (05:05)
[2018-05-05 06:28] LABS: BASOPHILS % 0.7 % (0.0-2.0); EOSINOPHILS % 5.4 % (0.0-5.0); HEMATOCRIT. 22.5 % (36.0-48.0); HEMOGLOBIN. 7.4 g/dL (12.0-16.0); LYMPHOCYTES % 38.4 % (20.0-50.0); MEAN CORPUSCULAR HEMOGLOBIN 19.5 pg (28.0-32.0); MEAN CORPUSCULAR VOLUME 59.3 fL (81.0-99.0); MONOCYTES % 5.1 % (2.0-8.0); NEUTROPHILS % 50.4 % (40.0-76.0); RED BLOOD CELL COUNT 3.79 mill/uL (4.2-5.4)
[2018-05-05] MEDS: INSULIN LISPRO 100 UNITS/ML SUBCUT SCH ×4 (06:40→21:00)
[2018-05-05] MEDS: BLOOD SUGAR DIAGNOSTIC STRIP TEST SCH ×4 (06:40→21:00)
[2018-05-05] MEDS: HYDRALAZINE HCL 25MG TABLET PO SCH ×2 (06:49→13:47)
[2018-05-05] MEDS: OMEPRAZOLE 20MG CAPSULE EXTENDED RELEASE PO SCH (06:49)
[2018-05-05] MEDS: GABAPENTIN 300MG CAPSULE PO SCH ×2 (06:49→13:46)
[2018-05-05 06:57] LABS: PHOSPHORUS 4.7 mg/dL (2.5-4.9)
[2018-05-05 07:55] VITALS: BP 137/52
[2018-05-05 08:05] LABS: MEAN PLATELET VOLUME 9.9 fl (7.4-10.4); PLATELET 190 x1000/uL (130-400)
[2018-05-05] MEDS: CITRIC ACID/SODIUM CITRATE SOLN 30ML UDC PO SCH ×3 (09:23→17:25)
[2018-05-05] MEDS: DOCUSATE SODIUM 100MG CAPSULE PO SCH (09:23)
[2018-05-05] MEDS: AMLODIPINE 10MG TABLET PO SCH (09:23)
[2018-05-05 12:00] VITALS: BP 112/57
[2018-05-05] MEDS: LEVOFLOXACIN 500MG TABLET PO SCH (12:07)
[2018-05-05 13:11] LABS: ANTI-NUCLEAR ANTIBODIES DIRECT Negative (Negative)
[2018-05-05] MEDS: DIPHENHYDRAMINE 25MG CAPSULE PO PRN ×2 (13:50→20:21)
[2018-05-05 15:41] LABS: TOTAL IRON BINDING CAPACITY 173 ug/dL (250-450)
[2018-05-05 16:10] VITALS: BP 161/67
[2018-05-05 20:00] VITALS: BP 124/76
[2018-05-06] VITALS (8 sets, daily range): BP systolic 122–162; BP diastolic 58–80
[2018-05-06] MEDS: HYDRALAZINE HCL 25MG TABLET PO SCH ×4 (00:39→21:20)
[2018-05-06] MEDS: GABAPENTIN 300MG CAPSULE PO SCH ×4 (00:40→21:20)
[2018-05-06] MEDS: HYDROCODONE/ACETAMINOPHEN 5/325MG TABLET PO PRN ×4 (00:40→21:19)
[2018-05-06] MEDS: BLOOD SUGAR DIAGNOSTIC STRIP TEST SCH ×4 (05:34→21:20)
[2018-05-06] MEDS: OMEPRAZOLE 20MG CAPSULE EXTENDED RELEASE PO SCH (05:34)
[2018-05-06] MEDS: INSULIN LISPRO 100 UNITS/ML SUBCUT SCH ×4 (05:44→21:00)
[2018-05-06 07:01] LABS: BASOPHILS % 0.6 % (0.0-2.0); EOSINOPHILS % 6.5 % (0.0-5.0); HEMATOCRIT. 21.3 % (36.0-48.0); LYMPHOCYTES % 34.5 % (20.0-50.0); MEAN CORPUSCULAR HEMOGLOBIN 19.3 pg (28.0-32.0); MEAN CORPUSCULAR VOLUME 59.5 fL (81.0-99.0); MEAN PLATELET VOLUME 9.3 fl (7.4-10.4); MONOCYTES % 6.9 % (2.0-8.0); NEUTROPHILS % 51.5 % (40.0-76.0); PLATELET 195 x1000/uL (130-400); RED BLOOD CELL COUNT 3.58 mill/uL (4.2-5.4)
[2018-05-06 07:11] LABS: HEMOGLOBIN. 6.9 g/dL (12.0-16.0)
[2018-05-06] MEDS ORDERED: SODIUM POLYSTYRENE SULFONATE 15 G/60 ML BOT PO SCH (08:45)
[2018-05-06] MEDS: DOCUSATE SODIUM 100MG CAPSULE PO SCH (09:03)
[2018-05-06] MEDS: CITRIC ACID/SODIUM CITRATE SOLN 30ML UDC PO SCH ×3 (09:04→17:19)
[2018-05-06] MEDS: AMLODIPINE 10MG TABLET PO SCH (09:04)
[2018-05-06 10:20] LABS: PLATELET ESTIMATE NORMAL
[2018-05-06 13:10] LABS: COMPLEMENT C3 112 mg/dL (82-167)
[2018-05-07] MEDS: DIPHENHYDRAMINE 25MG CAPSULE PO PRN ×3 (00:03→21:17)
[2018-05-07 03:06] VITALS: BP 144/73
[2018-05-07 04:00] VITALS: BP 144/73
[2018-05-07] MEDS: HYDROCODONE/ACETAMINOPHEN 5/325MG TABLET PO PRN ×3 (04:36→21:17)
[2018-05-07 05:06] LABS: BASOPHILS % 0.8 % (0.0-2.0); EOSINOPHILS % 5.6 % (0.0-5.0); HEMATOCRIT. 25.8 % (36.0-48.0); HEMOGLOBIN. 8.4 g/dL (12.0-16.0); MEAN CORPUSCULAR HEMOGLOBIN 20.4 pg (28.0-32.0); MEAN CORPUSCULAR VOLUME 62.6 fL (81.0-99.0); MEAN PLATELET VOLUME 9.3 fl (7.4-10.4); MONOCYTES % 8.2 % (2.0-8.0); NEUTROPHILS % 52.4 % (40.0-76.0); PLATELET 196 x1000/uL (130-400); RED BLOOD CELL COUNT 4.12 mill/uL (4.2-5.4); RED CELL DISTRIBUTION WIDTH 26.8 % (11.6-14.6)
[2018-05-07] MEDS: HYDRALAZINE HCL 25MG TABLET PO SCH ×3 (05:41→21:05)
[2018-05-07] MEDS: GABAPENTIN 300MG CAPSULE PO SCH ×3 (05:41→21:05)
[2018-05-07] MEDS: FAMOTIDINE 20MG TABLET PO SCH (05:42)
[2018-05-07] MEDS: BLOOD SUGAR DIAGNOSTIC STRIP TEST SCH ×4 (05:42→21:05)
[2018-05-07] MEDS: INSULIN LISPRO 100 UNITS/ML SUBCUT SCH ×4 (05:47→21:16)
[2018-05-07 08:00] VITALS: BP 140/66
[2018-05-07] MEDS: CITRIC ACID/SODIUM CITRATE SOLN 30ML UDC PO SCH ×3 (09:27→18:38)
[2018-05-07] MEDS: DOCUSATE SODIUM 100MG CAPSULE PO SCH (09:27)
[2018-05-07] MEDS: AMLODIPINE 10MG TABLET PO SCH (09:27)
[2018-05-07 12:25] VITALS: BP 142/69
[2018-05-07 16:03] VITALS: BP 134/65
[2018-05-07 17:28] LABS: HEMATOCRIT 24.7 % (36.0-48.0); HEMOGLOBIN 8.1 g/dL (12.0-16.0)
[2018-05-07 20:00] VITALS: BP 138/60
[2018-05-07] MEDS: EPOETIN ALFA 10000UNITS/ML VIAL SUBCUT SCH (21:05)
[2018-05-08] VITALS: BP 153/88
[2018-05-08] MEDS ORDERED: HYDROCODONE/ACETAMINOPHEN 5/325MG TABLET ONE (02:31)
[2018-05-08 04:00] VITALS: BP 138/60
[2018-05-08] MEDS ORDERED: DIPHENHYDRAMINE 25MG CAPSULE ONE (04:46)
[2018-05-08 06:33] LABS: HEMATOCRIT 24.2 % (36.0-48.0); HEMOGLOBIN 7.9 g/dL (12.0-16.0); MEAN CORPUSCULAR HEMOGLOBIN 20.4 pg (28.0-32.0); MEAN CORPUSCULAR VOLUME 62.9 fL (81.0-99.0); PLATELET 184 x1000/uL (130-400); RED BLOOD CELL COUNT 3.85 mill/uL (4.2-5.4); RED CELL DISTRIBUTION WIDTH 25.8 % (11.6-14.6)
[2018-05-08] MEDS: FAMOTIDINE 20MG TABLET PO SCH (06:45)
[2018-05-08] MEDS: GABAPENTIN 300MG CAPSULE PO SCH ×3 (06:45→21:28)
[2018-05-08] MEDS: BLOOD SUGAR DIAGNOSTIC STRIP TEST SCH ×4 (06:54→21:19)
[2018-05-08] MEDS: HYDRALAZINE HCL 25MG TABLET PO SCH ×3 (06:54→21:29)
[2018-05-08] MEDS: INSULIN LISPRO 100 UNITS/ML SUBCUT SCH ×4 (06:54→21:00)
[2018-05-08] MEDS: HYDROCODONE/ACETAMINOPHEN 5/325MG TABLET PO PRN ×3 (07:17→21:30)
[2018-05-08 08:00] VITALS: BP 175/92
[2018-05-08] MEDS: CITRIC ACID/SODIUM CITRATE SOLN 30ML UDC PO SCH ×3 (09:30→17:55)
[2018-05-08] MEDS: DOCUSATE SODIUM 250MG CAPSULE PO SCH (09:32)
[2018-05-08] MEDS: AMLODIPINE 10MG TABLET PO SCH (09:32)
[2018-05-08 12:00] VITALS: BP 139/70
[2018-05-08] MEDS ORDERED: AZITHROMYCIN 250 MG TABLET PO SCH (12:00)
[2018-05-08] MEDS: DIPHENHYDRAMINE 25MG CAPSULE PO PRN ×2 (13:20→21:28)
[2018-05-08 16:00] VITALS: BP 140/68
[2018-05-08 20:00] VITALS: BP 149/83
[2018-05-08] MEDS: CLONIDINE 0.1MG TABLET PO PRN (23:20)
[2018-05-09 04:00] VITALS: BP 138/74
[2018-05-09] MEDS: DIPHENHYDRAMINE 25MG CAPSULE PO PRN ×2 (04:17→23:22)
[2018-05-09] MEDS: HYDROCODONE/ACETAMINOPHEN 5/325MG TABLET PO PRN ×3 (04:20→21:52)
[2018-05-09] MEDS: GABAPENTIN 300MG CAPSULE PO SCH ×3 (06:21→21:49)
[2018-05-09] MEDS: FAMOTIDINE 20MG TABLET PO SCH (06:21)
[2018-05-09] MEDS: HYDRALAZINE HCL 25MG TABLET PO SCH ×3 (06:21→21:48)
[2018-05-09] MEDS: BLOOD SUGAR DIAGNOSTIC STRIP TEST SCH ×3 (06:22→22:20)
[2018-05-09] MEDS: INSULIN LISPRO 100 UNITS/ML SUBCUT SCH ×3 (06:48→22:20)
[2018-05-09 08:00] VITALS: BP 153/74
[2018-05-09 08:06] LABS: BASOPHILS % 0.6 % (0.0-2.0); EOSINOPHILS % 5.8 % (0.0-5.0); HEMATOCRIT. 23.4 % (36.0-48.0); HEMOGLOBIN. 7.6 g/dL (12.0-16.0); MEAN CORPUSCULAR HEMOGLOBIN 20.5 pg (28.0-32.0); MEAN CORPUSCULAR VOLUME 62.9 fL (81.0-99.0); MONOCYTES % 11.4 % (2.0-8.0); NEUTROPHILS % 50.2 % (40.0-76.0); RED BLOOD CELL COUNT 3.71 mill/uL (4.2-5.4); RED CELL DISTRIBUTION WIDTH 25.4 % (11.6-14.6)
[2018-05-09] MEDS ORDERED: AZITHROMYCIN 500 MG TABLET PO NR (09:45)
[2018-05-09] MEDS: DOCUSATE SODIUM 250MG CAPSULE PO SCH (09:55)
[2018-05-09] MEDS: AMLODIPINE 10MG TABLET PO SCH (10:00)
[2018-05-09 12:00] VITALS: BP_SYST 141; BP_DIAS 75; BP_DIAS 79
[2018-05-09 13:27] LABS: PLATELET 181 x1000/uL (130-400)
[2018-05-09 16:00] VITALS: BP_SYST 132; BP_SYST 133; BP_DIAS 55; BP_DIAS 68
[2018-05-09] MEDS: EPOETIN ALFA 10000UNITS/ML VIAL SUBCUT SCH (21:50)
[2018-05-10] VITALS (7 sets, daily range): BP systolic 141–166; BP diastolic 67–83
[2018-05-10] MEDS: HYDROCODONE/ACETAMINOPHEN 5/325MG TABLET PO PRN ×4 (03:51→21:27)
[2018-05-10] MEDS: FAMOTIDINE 20MG TABLET PO SCH (06:52)
[2018-05-10] MEDS: HYDRALAZINE HCL 25MG TABLET PO SCH ×3 (06:53→21:28)
[2018-05-10] MEDS: GABAPENTIN 300MG CAPSULE PO SCH ×3 (06:53→21:26)
[2018-05-10] MEDS: DIPHENHYDRAMINE 25MG CAPSULE PO PRN ×2 (06:57→14:36)
[2018-05-10 07:03] LABS: HEMATOCRIT 23.5 % (36.0-48.0); HEMOGLOBIN 7.6 g/dL (12.0-16.0)
[2018-05-10] MEDS: BLOOD SUGAR DIAGNOSTIC STRIP TEST SCH ×4 (07:06→21:28)
[2018-05-10] MEDS: INSULIN LISPRO 100 UNITS/ML SUBCUT SCH ×4 (07:50→21:00)
[2018-05-10] MEDS: AMLODIPINE 10MG TABLET PO SCH (08:48)
[2018-05-10] MEDS: DOCUSATE SODIUM 250MG CAPSULE PO SCH (08:48)
[2018-05-10] MEDS: AZITHROMYCIN 250 MG TABLET PO SCH (08:48)
[2018-05-10 11:11] LABS: BASOPHILS % 0.6 % (0.0-2.0); HEMATOCRIT. 22.9 % (36.0-48.0); HEMOGLOBIN. 7.5 g/dL (12.0-16.0); LYMPHOCYTES % 23.9 % (20.0-50.0); MEAN CORPUSCULAR HEMOGLOBIN 20.6 pg (28.0-32.0); MEAN CORPUSCULAR VOLUME 62.5 fL (81.0-99.0); MEAN PLATELET VOLUME 9.4 fl (7.4-10.4); MONOCYTES % 10.2 % (2.0-8.0); NEUTROPHILS % 59.3 % (40.0-76.0); PLATELET 194 x1000/uL (130-400); RED BLOOD CELL COUNT 3.66 mill/uL (4.2-5.4); RED CELL DISTRIBUTION WIDTH 25.7 % (11.6-14.6)
[2018-05-10] MEDS ORDERED: SODIUM POLYSTYRENE SULFONATE 15 G/60 ML BOT PO NR (13:30)
[2018-05-10] MEDS ORDERED: LACTULOSE 20G/30ML UDC PO NR (13:30)
[2018-05-10 19:03] LABS: PLATELET ESTIMATE NORMAL
[2018-05-11] VITALS: BP 147/60
[2018-05-11] MEDS: HYDROCODONE/ACETAMINOPHEN 5/325MG TABLET PO PRN ×3 (03:15→21:45)
[2018-05-11] MEDS: DIPHENHYDRAMINE 25MG CAPSULE PO PRN ×2 (03:18→21:46)
[2018-05-11 04:00] VITALS: BP 123/71
[2018-05-11] MEDS: HYDRALAZINE HCL 25MG TABLET PO SCH ×3 (06:30→21:45)
[2018-05-11] MEDS: GABAPENTIN 300MG CAPSULE PO SCH ×3 (06:30→21:46)
[2018-05-11] MEDS: FAMOTIDINE 20MG TABLET PO SCH (06:30)
[2018-05-11] MEDS: BLOOD SUGAR DIAGNOSTIC STRIP TEST SCH ×4 (06:33→21:00)
[2018-05-11] MEDS: INSULIN LISPRO 100 UNITS/ML SUBCUT SCH ×4 (07:29→22:06)
[2018-05-11 08:00] VITALS: BP 142/71
[2018-05-11] MEDS ORDERED: SODIUM CHLORIDE 0.45% 1,000 ML IV SCH (08:30)
[2018-05-11] MEDS: AZITHROMYCIN 250 MG TABLET PO SCH (08:54)
[2018-05-11] MEDS: AMLODIPINE 10MG TABLET PO SCH (08:54)
[2018-05-11] MEDS: DOCUSATE SODIUM 250MG CAPSULE PO SCH (08:55)
[2018-05-11 14:17] LABS: BASOPHILS % 0.9 % (0.0-2.0); EOSINOPHILS % 6.5 % (0.0-5.0); HEMATOCRIT. 23.8 % (36.0-48.0); HEMOGLOBIN. 7.6 g/dL (12.0-16.0); LYMPHOCYTES % 26.2 % (20.0-50.0); MEAN CORPUSCULAR HEMOGLOBIN 20.3 pg (28.0-32.0); MEAN CORPUSCULAR VOLUME 63.5 fL (81.0-99.0); MONOCYTES % 9.2 % (2.0-8.0); NEUTROPHILS % 57.2 % (40.0-76.0); PLATELET 191 x1000/uL (130-400); RED BLOOD CELL COUNT 3.76 mill/uL (4.2-5.4); RED CELL DISTRIBUTION WIDTH 24.9 % (11.6-14.6)
[2018-05-11 18:06] LABS: CREATINE KINASE 259 IU/L (26-192)
[2018-05-11 19:54] VITALS: BP 178/103
[2018-05-11] MEDS: EPOETIN ALFA 10000UNITS/ML VIAL SUBCUT SCH (21:47)
[2018-05-12 00:22] VITALS: BP 153/71
[2018-05-12 04:19] VITALS: BP 180/86
[2018-05-12] MEDS: HYDRALAZINE HCL 25MG TABLET PO SCH ×3 (06:26→21:59)
[2018-05-12] MEDS: FAMOTIDINE 20MG TABLET PO SCH (06:26)
[2018-05-12] MEDS: DIPHENHYDRAMINE 25MG CAPSULE PO PRN ×2 (06:26→22:22)
[2018-05-12] MEDS: GABAPENTIN 300MG CAPSULE PO SCH ×3 (06:26→21:59)
[2018-05-12] MEDS: HYDROCODONE/ACETAMINOPHEN 5/325MG TABLET PO PRN ×4 (06:27→22:22)
[2018-05-12] MEDS: BLOOD SUGAR DIAGNOSTIC STRIP TEST SCH ×4 (06:46→21:00)
[2018-05-12] MEDS: INSULIN LISPRO 100 UNITS/ML SUBCUT SCH ×4 (07:47→21:00)
[2018-05-12 08:00] VITALS: BP 121/57
[2018-05-12] MEDS: AZITHROMYCIN 250 MG TABLET PO SCH (08:18)
[2018-05-12] MEDS: DOCUSATE SODIUM 250MG CAPSULE PO SCH (08:18)
[2018-05-12] MEDS: AMLODIPINE 10MG TABLET PO SCH (08:19)
[2018-05-12 09:13] LABS: BASOPHILS % 0.6 % (0.0-2.0); EOSINOPHILS % 5.6 % (0.0-5.0); HEMATOCRIT. 24.8 % (36.0-48.0); HEMOGLOBIN. 8.1 g/dL (12.0-16.0); MEAN CORPUSCULAR HEMOGLOBIN 20.4 pg (28.0-32.0); MEAN CORPUSCULAR VOLUME 62.5 fL (81.0-99.0); MONOCYTES % 9.1 % (2.0-8.0); NEUTROPHILS % 51.7 % (40.0-76.0); RED BLOOD CELL COUNT 3.97 mill/uL (4.2-5.4); RED CELL DISTRIBUTION WIDTH 25.2 % (11.6-14.6)
[2018-05-12 09:33] LABS: PHOSPHORUS 5.1 mg/dL (2.5-4.9)
[2018-05-12 11:13] LABS: PLATELET ESTIMATE NORMAL
[2018-05-12 11:14] LABS: MEAN PLATELET VOLUME 9.3 fl (7.4-10.4); PLATELET 224 x1000/uL (130-400)
[2018-05-12 12:00] VITALS: BP 113/89
[2018-05-12 16:00] VITALS: BP 151/76
[2018-05-12 18:23] LABS: BASOPHILS % 0.7 % (0.0-2.0); EOSINOPHILS % 5.8 % (0.0-5.0); HEMATOCRIT. 25.1 % (36.0-48.0); HEMOGLOBIN. 8.1 g/dL (12.0-16.0); LYMPHOCYTES % 25.4 % (20.0-50.0); MEAN CORPUSCULAR HEMOGLOBIN 20.4 pg (28.0-32.0); MEAN CORPUSCULAR VOLUME 63.3 fL (81.0-99.0); MEAN PLATELET VOLUME 9.4 fl (7.4-10.4); MONOCYTES % 8.6 % (2.0-8.0); NEUTROPHILS % 59.5 % (40.0-76.0); PLATELET 231 x1000/uL (130-400); RED BLOOD CELL COUNT 3.96 mill/uL (4.2-5.4); RED CELL DISTRIBUTION WIDTH 25.9 % (11.6-14.6)
[2018-05-13] VITALS: BP 185/88
[2018-05-13] MEDS: HYDROCODONE/ACETAMINOPHEN 5/325MG TABLET PO PRN ×4 (02:44→17:44)
[2018-05-13] MEDS: CLONIDINE 0.1MG TABLET PO PRN (02:54)
[2018-05-13 04:00] VITALS: BP 146/76
[2018-05-13] MEDS: GABAPENTIN 300MG CAPSULE PO SCH ×3 (05:44→21:56)
[2018-05-13] MEDS: HYDRALAZINE HCL 25MG TABLET PO SCH ×3 (05:45→21:56)
[2018-05-13] MEDS: BLOOD SUGAR DIAGNOSTIC STRIP TEST SCH ×4 (06:20→21:04)
[2018-05-13] MEDS: FAMOTIDINE 20MG TABLET PO SCH (06:20)
[2018-05-13] MEDS: INSULIN LISPRO 100 UNITS/ML SUBCUT SCH ×4 (07:50→21:15)
[2018-05-13 08:00] VITALS: BP 131/60
[2018-05-13] MEDS: DOCUSATE SODIUM 250MG CAPSULE PO SCH (08:13)
[2018-05-13] MEDS: AMLODIPINE 10MG TABLET PO SCH (08:14)
[2018-05-13] MEDS: AZITHROMYCIN 250 MG TABLET PO SCH (08:14)
[2018-05-13 12:00] VITALS: BP 130/57
[2018-05-13] MEDS ORDERED: HYDR-4134 PO (12:47)
[2018-05-13] MEDS ORDERED: GABA-531 PO (12:47)
[2018-05-13] MEDS: DIPHENHYDRAMINE 25MG CAPSULE PO PRN ×2 (15:44→23:53)
[2018-05-13 16:00] VITALS: BP 145/72
[2018-05-13 20:00] VITALS: BP 142/68
[2018-05-13] MEDS: ACETAMINOPHEN 325MG TABLET PO PRN (21:18)
[2018-05-14] VITALS: BP 175/87
[2018-05-14] MEDS: ACETAMINOPHEN 325MG TABLET PO PRN ×2 (03:31→06:08)
[2018-05-14 04:00] VITALS: BP 161/83
[2018-05-14] MEDS: GABAPENTIN 300MG CAPSULE PO SCH ×2 (06:06→14:00)
[2018-05-14] MEDS: HYDRALAZINE HCL 25MG TABLET PO SCH ×2 (06:06→14:00)
[2018-05-14] MEDS: DIPHENHYDRAMINE 25MG CAPSULE PO PRN (06:08)
[2018-05-14] MEDS: BLOOD SUGAR DIAGNOSTIC STRIP TEST SCH ×3 (06:40→17:20)
[2018-05-14] MEDS: INSULIN LISPRO 100 UNITS/ML SUBCUT SCH ×3 (06:41→13:46)
[2018-05-14] MEDS: FAMOTIDINE 20MG TABLET PO SCH (06:44)
[2018-05-14] MEDS: AMLODIPINE 10MG TABLET PO SCH (09:00)
[2018-05-14] MEDS: AZITHROMYCIN 250 MG TABLET PO SCH (09:54)
[2018-05-14] MEDS: DOCUSATE SODIUM 250MG CAPSULE PO SCH (09:54)
[2018-05-14 12:00] VITALS: BP 148/84
[2018-05-14 16:00] VITALS: BP 167/74
[2018-05-14 17:00] LABS: HEMATOCRIT. 24.5 % (36.0-48.0); HEMOGLOBIN. 7.8 g/dL (12.0-16.0); MEAN CORPUSCULAR HEMOGLOBIN 20.5 pg (28.0-32.0); MEAN CORPUSCULAR VOLUME 63.8 fL (81.0-99.0); MEAN PLATELET VOLUME 9.6 fl (7.4-10.4); PLATELET 259 x1000/uL (130-400); RED BLOOD CELL COUNT 3.84 mill/uL (4.2-5.4)
[2018-05-14 17:22] LABS: PLATELET ESTIMATE NORMAL
[2018-05-14] MEDS ORDERED: SODIUM POLYSTYRENE SULFONATE 15 G/60 ML BOT PO NR (19:00)
[2018-05-14] MEDS ORDERED: TRAMADOL 50MG TABLET PO PRN (19:30)
[2018-05-14] MEDS ORDERED: LACTULOSE 20G/30ML UDC PO NR (20:00)
[2018-05-15] MEDS ORDERED: HYDR-4001 MT (10:45)
[2018-05-15] MEDS ORDERED: DIPH-907 MT (10:45)
== END 2018-05-14 20:50 | disposition left against medical advice (07) | DRG 463 ==
LOC: ER 16:41 → OBSVTOIN 19:44 → 5WST 19:44 → ENRESERV 19:54 → 6EST 05-08 23:30
PROVIDERS: ADMIT Family Medicine; ATTEND Family Medicine
PROC: 30233N1 Transfusion of Nonautologous Red Blood Cells into Peripheral Vein, Percutaneous Approach (ICD-10-PCS; principal; 2018-05-06)
DX: N39.0 Urinary tract infection, site not specified (principal); N17.0 Acute kidney failure with tubular necrosis; E87.2 Acidosis; E44.0 Moderate protein-calorie malnutrition; E11.22 Type 2 diabetes mellitus with diabetic chronic kidney disease; R65.10 Systemic inflammatory response syndrome (SIRS) of non-infectious origin without acute organ dysfunction; K57.91 Diverticulosis of intestine, part unspecified, without perforation or abscess with bleeding; E87.8 Other disorders of electrolyte and fluid balance, not elsewhere classified; I12.9 Hypertensive chronic kidney disease with stage 1 through stage 4 chronic kidney disease, or unspecified chronic kidney disease; D50.9 Iron deficiency anemia, unspecified; F17.210 Nicotine dependence, cigarettes, uncomplicated; N18.9 Chronic kidney disease, unspecified; H92.01 Otalgia, right ear; R31.9 Hematuria, unspecified; E87.5 Hyperkalemia; R30.0 Dysuria; E66.01 Morbid (severe) obesity due to excess calories; K59.00 Constipation, unspecified; Z53.21 Procedure and treatment not carried out due to patient leaving prior to being seen by health care provider; E78.5 Hyperlipidemia, unspecified; I69.354 Hemiplegia and hemiparesis following cerebral infarction affecting left non-dominant side; Z98.891 History of uterine scar from previous surgery; Z87.19 Personal history of other diseases of the digestive system; Z68.41 Body mass index [BMI] 40.0-44.9, adult; Z79.82 Long term (current) use of aspirin; Z79.899 Other long term (current) drug therapy; Z71.3 Dietary counseling and surveillance; Z90.49 Acquired absence of other specified parts of digestive tract
CPT/HCPCS: 36415; 36600; 71045; 76770; 80048; 80053; 81003; 82270; 82375; 82550; 82570; 82728; 82805; 82962; 83036; 83540; 83550; 83605; 83735; 84100; 84156; 85014; 85018; 85025; 85027; 85610; 86038; 86160; 86850; 86900; 86920; 87040; 87086; 93005; 96365; 96368; 97116; 97162; 97530; 99291; J0696; J0885; J1200; J1815; J2543; J2785; J3370; J7030; J7040; J7050; P9016; Q0163

== ENCOUNTER 2018-05-14 23:44 | Inpatient (IN) | payer MEDICAID ==
[~2018-05-14] VITALS: Ht 162.6 cm; Wt 116.1 kg
[~2018-05-14 23:44] MED LIST changes: +GABA-531 PO; -GABA800T97 PO; +HYDR-4134 PO; -TRAM50TA3 PO
[2018-05-15] MEDS ORDERED: ACETAMINOPHEN 650MG/20.3ML UDC PO ONE (02:00)
[2018-05-15 02:03] LABS: HEMATOCRIT. 26.9 % (36.0-48.0); HEMOGLOBIN. 8.6 g/dL (12.0-16.0); MEAN CORPUSCULAR HEMOGLOBIN 20.2 pg (28.0-32.0); MEAN CORPUSCULAR VOLUME 63.1 fL (81.0-99.0); MEAN PLATELET VOLUME 9.3 fl (7.4-10.4); PLATELET 274 x1000/uL (130-400); RED BLOOD CELL COUNT 4.27 mill/uL (4.2-5.4); RED CELL DISTRIBUTION WIDTH 26.8 % (11.6-14.6)
[2018-05-15 02:06] LABS: CHLORIDE 114 mEq/L (98-107)
[2018-05-15 02:12] LABS: INR 1.1; PROTHROMBIN TIME 11.2 sec (9.4-11.6)
[2018-05-15 02:55] LABS: PLATELET ESTIMATE NORMAL
[2018-05-15 08:50] VITALS: BP 160/60
[2018-05-15] MEDS ORDERED: HYDR-4001 MT (10:45)
[2018-05-15] MEDS ORDERED: DIPH-907 MT (10:45)
[2018-05-15] MEDS ORDERED: SODIUM POLYSTYRENE SULFONATE 15 G/60 ML BOT PO SCH (11:15)
[2018-05-15 12:00] VITALS: BP 197/73
[2018-05-15] MEDS ORDERED: NIFEDIPINE PO SCH (12:15)
[2018-05-15 12:26] LABS: CREATINE KINASE 305 IU/L (26-192)
[2018-05-15] MEDS ORDERED: NIFEDIPINE XL 90MG TAB PO SCH (13:15)
[2018-05-15] MEDS: GABAPENTIN 300MG CAPSULE PO SCH ×2 (13:35→21:34)
[2018-05-15] MEDS: OMEPRAZOLE 20MG CAPSULE EXTENDED RELEASE PO SCH (13:35)
[2018-05-15] MEDS: HYDRALAZINE HCL 25MG TABLET PO SCH ×2 (13:35→21:34)
[2018-05-15] MEDS: ASPIRIN 81MG EC TABLET PO SCH (13:35)
[2018-05-15 16:00] VITALS: BP_SYST 126; BP_DIAS 24; BP_DIAS 74
[2018-05-15] MEDS: DIPHENHYDRAMINE 25MG CAPSULE PO PRN (16:22)
[2018-05-15 20:00] VITALS: BP 133/67
[2018-05-15] MEDS: AMOXICILLIN/POTASSIUM CLAVULANATE 500/125MG TAB PO SCH (20:50)
[2018-05-15] MEDS: NIFEDIPINE XL 60MG TAB PO SCH (20:51)
[2018-05-15] MEDS: OXYCODONE HCL/ACETAMINOPHEN 5/325MG TABLET PO PRN (21:38)
[2018-05-16] VITALS: BP 154/81
[2018-05-16 04:00] VITALS: BP 140/56
[2018-05-16] MEDS: HYDRALAZINE HCL 25MG TABLET PO SCH ×3 (06:05→21:24)
[2018-05-16] MEDS: GABAPENTIN 300MG CAPSULE PO SCH ×3 (06:05→21:24)
[2018-05-16] MEDS: DIPHENHYDRAMINE 25MG CAPSULE PO PRN ×3 (06:13→21:24)
[2018-05-16] MEDS: OXYCODONE HCL/ACETAMINOPHEN 5/325MG TABLET PO PRN ×3 (06:15→21:26)
[2018-05-16 08:00] VITALS: BP 141/67
[2018-05-16] MEDS: NIFEDIPINE XL 60MG TAB PO SCH ×2 (09:16→21:25)
[2018-05-16] MEDS: AMOXICILLIN/POTASSIUM CLAVULANATE 500/125MG TAB PO SCH ×2 (09:17→21:25)
[2018-05-16] MEDS: ASPIRIN 81MG EC TABLET PO SCH (09:17)
[2018-05-16] MEDS: OMEPRAZOLE 20MG CAPSULE EXTENDED RELEASE PO SCH (09:17)
[2018-05-16 15:03] VITALS: BP 169/77
[2018-05-16 16:30] LABS: HEMATOCRIT. 24.4 % (36.0-48.0); HEMOGLOBIN. 7.7 g/dL (12.0-16.0); MEAN CORPUSCULAR HEMOGLOBIN 20.1 pg (28.0-32.0); MEAN CORPUSCULAR VOLUME 63.5 fL (81.0-99.0); MEAN PLATELET VOLUME 9.1 fl (7.4-10.4); PLATELET 283 x1000/uL (130-400); RED BLOOD CELL COUNT 3.84 mill/uL (4.2-5.4); RED CELL DISTRIBUTION WIDTH 27.5 % (11.6-14.6)
[2018-05-16 17:02] LABS: PLATELET ESTIMATE NORMAL
[2018-05-16 20:00] VITALS: BP 152/69
[2018-05-17] VITALS: BP 141/64
[2018-05-17 04:00] VITALS: BP 104/74
[2018-05-17] MEDS: GABAPENTIN 300MG CAPSULE PO SCH ×3 (05:52→21:58)
[2018-05-17] MEDS: HYDRALAZINE HCL 25MG TABLET PO SCH ×3 (05:52→22:01)
[2018-05-17 08:00] VITALS: BP 137/63
[2018-05-17] MEDS: NIFEDIPINE XL 60MG TAB PO SCH ×2 (10:18→21:58)
[2018-05-17] MEDS: AMOXICILLIN/POTASSIUM CLAVULANATE 500/125MG TAB PO SCH ×2 (10:20→22:01)
[2018-05-17] MEDS: FAMOTIDINE 20MG TABLET PO SCH (10:21)
[2018-05-17] MEDS: ASPIRIN 81MG EC TABLET PO SCH (10:25)
[2018-05-17 12:00] VITALS: BP 141/72
[2018-05-17] MEDS: OXYCODONE HCL/ACETAMINOPHEN 5/325MG TABLET PO PRN ×2 (13:45→21:59)
[2018-05-17 15:24] LABS: BASOPHILS % 0.6 % (0.0-2.0); EOSINOPHILS % 5.7 % (0.0-5.0); HEMATOCRIT. 23.9 % (36.0-48.0); HEMOGLOBIN. 7.8 g/dL (12.0-16.0); LYMPHOCYTES % 32.7 % (20.0-50.0); MEAN CORPUSCULAR HEMOGLOBIN 20.9 pg (28.0-32.0); MEAN CORPUSCULAR VOLUME 64.3 fL (81.0-99.0); MEAN PLATELET VOLUME 10.4 fl (7.4-10.4); PLATELET 306 x1000/uL (130-400); RED BLOOD CELL COUNT 3.72 mill/uL (4.2-5.4); RED CELL DISTRIBUTION WIDTH 27.3 % (11.6-14.6)
[2018-05-17 16:00] VITALS: BP 124/54
[2018-05-17 16:19] LABS: PLATELET ESTIMATE NORMAL
[2018-05-17 20:00] VITALS: BP 153/85
[2018-05-17] MEDS: DIPHENHYDRAMINE 25MG CAPSULE PO PRN (21:57)
[2018-05-17] MEDS: ATORVASTATIN CALCIUM 10MG TABLET PO SCH (21:58)
[2018-05-18] VITALS: BP 143/89
[2018-05-18] MEDS: ACETAMINOPHEN 325MG TABLET PO PRN ×2 (02:13→08:38)
[2018-05-18] MEDS: DIPHENHYDRAMINE 25MG CAPSULE PO PRN ×3 (02:14→22:43)
[2018-05-18 04:00] VITALS: BP 163/74
[2018-05-18] MEDS: OXYCODONE HCL/ACETAMINOPHEN 5/325MG TABLET PO PRN ×3 (04:36→20:21)
[2018-05-18] MEDS: HYDRALAZINE HCL 25MG TABLET PO SCH ×3 (05:56→22:43)
[2018-05-18] MEDS: GABAPENTIN 300MG CAPSULE PO SCH ×3 (05:56→22:43)
[2018-05-18 08:00] VITALS: BP 122/70
[2018-05-18] MEDS: AMOXICILLIN/POTASSIUM CLAVULANATE 500/125MG TAB PO SCH ×2 (08:33→20:57)
[2018-05-18] MEDS: NIFEDIPINE XL 60MG TAB PO SCH ×2 (08:34→20:56)
[2018-05-18] MEDS: FAMOTIDINE 20MG TABLET PO SCH (08:34)
[2018-05-18] MEDS: ASPIRIN 81MG EC TABLET PO SCH (08:34)
[2018-05-18 12:00] VITALS: BP 143/71
[2018-05-18 16:00] VITALS: BP 124/51
[2018-05-18 20:00] VITALS: BP 147/72
[2018-05-18] MEDS: ATORVASTATIN CALCIUM 10MG TABLET PO SCH (20:56)
[2018-05-18] MEDS: SODIUM CHLORIDE 0.45% 1,000 ML IV SCH (23:59)
[2018-05-19] VITALS (8 sets, daily range): BP systolic 109–173; BP diastolic 51–88
[2018-05-19] MEDS: OXYCODONE HCL/ACETAMINOPHEN 5/325MG TABLET PO PRN ×3 (04:11→18:28)
[2018-05-19] MEDS: GABAPENTIN 300MG CAPSULE PO SCH ×3 (06:14→20:43)
[2018-05-19] MEDS: HYDRALAZINE HCL 25MG TABLET PO SCH ×3 (06:23→20:43)
[2018-05-19] MEDS: AMOXICILLIN/POTASSIUM CLAVULANATE 500/125MG TAB PO SCH ×2 (08:30→20:43)
[2018-05-19] MEDS: FAMOTIDINE 20MG TABLET PO SCH (08:31)
[2018-05-19] MEDS: ASPIRIN 81MG EC TABLET PO SCH (08:31)
[2018-05-19] MEDS: NIFEDIPINE XL 60MG TAB PO SCH ×2 (08:31→20:43)
[2018-05-19 14:49] LABS: HEMATOCRIT. 23.3 % (36.0-48.0); HEMOGLOBIN. 7.4 g/dL (12.0-16.0); MEAN CORPUSCULAR HEMOGLOBIN 20.5 pg (28.0-32.0); MEAN CORPUSCULAR VOLUME 64.3 fL (81.0-99.0); MEAN PLATELET VOLUME 8.8 fl (7.4-10.4); PLATELET 267 x1000/uL (130-400); RED BLOOD CELL COUNT 3.63 mill/uL (4.2-5.4); RED CELL DISTRIBUTION WIDTH 27.4 % (11.6-14.6)
[2018-05-19 14:59] LABS: PLATELET ESTIMATE NORMAL
[2018-05-19] MEDS ORDERED: SODIUM POLYSTYRENE SULFONATE 15 G/60 ML BOT PO NR (16:15)
[2018-05-19] MEDS: SODIUM CHLORIDE 0.45% 1,000 ML IV SCH ×2 (19:00→20:00)
[2018-05-19] MEDS: ATORVASTATIN CALCIUM 10MG TABLET PO SCH (20:43)
[2018-05-20] VITALS: BP 145/60
[2018-05-20 00:04] VITALS: BP 145/60
[2018-05-20] MEDS: OXYCODONE HCL/ACETAMINOPHEN 5/325MG TABLET PO PRN ×3 (02:00→21:14)
[2018-05-20] MEDS: HYDRALAZINE HCL 25MG TABLET PO SCH ×3 (05:42→20:17)
[2018-05-20] MEDS: GABAPENTIN 300MG CAPSULE PO SCH ×3 (05:42→20:18)
[2018-05-20 08:00] VITALS: BP 161/72
[2018-05-20] MEDS: AMOXICILLIN/POTASSIUM CLAVULANATE 500/125MG TAB PO SCH ×2 (08:56→20:17)
[2018-05-20] MEDS: FAMOTIDINE 20MG TABLET PO SCH (08:57)
[2018-05-20] MEDS: NIFEDIPINE XL 60MG TAB PO SCH ×2 (08:57→20:18)
[2018-05-20] MEDS: ASPIRIN 81MG EC TABLET PO SCH (08:57)
[2018-05-20 12:00] VITALS: BP_SYST 143; BP_SYST 159; BP_DIAS 81; BP_DIAS 91
[2018-05-20] MEDS: DIPHENHYDRAMINE 25MG CAPSULE PO PRN (13:13)
[2018-05-20 16:00] VITALS: BP 136/71
[2018-05-20 20:00] VITALS: BP 140/79
[2018-05-20] MEDS: SODIUM CHLORIDE 0.45% 1,000 ML IV SCH (20:00)
[2018-05-20] MEDS: ATORVASTATIN CALCIUM 10MG TABLET PO SCH (20:18)
[2018-05-20 23:29] LABS: BASOPHILS % 0.9 % (0.0-2.0); EOSINOPHILS % 8.6 % (0.0-5.0); HEMATOCRIT. 23.7 % (36.0-48.0); HEMOGLOBIN. 7.6 g/dL (12.0-16.0); MEAN CORPUSCULAR HEMOGLOBIN 20.4 pg (28.0-32.0); MEAN CORPUSCULAR VOLUME 63.5 fL (81.0-99.0); MEAN PLATELET VOLUME 10.2 fl (7.4-10.4); MONOCYTES % 8.4 % (2.0-8.0); NEUTROPHILS % 56.1 % (40.0-76.0); PLATELET 265 x1000/uL (130-400); RED BLOOD CELL COUNT 3.73 mill/uL (4.2-5.4); RED CELL DISTRIBUTION WIDTH 26.3 % (11.6-14.6)
[2018-05-21] MEDS: SODIUM CHLORIDE 0.45% 1,000 ML IV SCH (00:35)
[2018-05-21] MEDS: ACETAMINOPHEN 325MG TABLET PO PRN ×3 (01:16→15:06)
[2018-05-21 04:00] VITALS: BP 129/57
[2018-05-21] MEDS: OXYCODONE HCL/ACETAMINOPHEN 5/325MG TABLET PO PRN ×3 (05:12→18:19)
[2018-05-21] MEDS: GABAPENTIN 300MG CAPSULE PO SCH ×3 (05:13→21:18)
[2018-05-21] MEDS: HYDRALAZINE HCL 25MG TABLET PO SCH ×3 (05:13→21:19)
[2018-05-21 07:58] VITALS: BP 150/46
[2018-05-21 08:03] LABS: EOSINOPHILS % 7.2 % (0.0-5.0); HEMATOCRIT. 24.4 % (36.0-48.0); HEMOGLOBIN. 7.8 g/dL (12.0-16.0); LYMPHOCYTES % 33.8 % (20.0-50.0); MEAN CORPUSCULAR HEMOGLOBIN 20.3 pg (28.0-32.0); MEAN CORPUSCULAR VOLUME 63.7 fL (81.0-99.0); MONOCYTES % 7.8 % (2.0-8.0); NEUTROPHILS % 50.2 % (40.0-76.0); PLATELET 245 x1000/uL (130-400); RED BLOOD CELL COUNT 3.83 mill/uL (4.2-5.4); RED CELL DISTRIBUTION WIDTH 26.9 % (11.6-14.6)
[2018-05-21] MEDS: ASPIRIN 81MG EC TABLET PO SCH (08:46)
[2018-05-21] MEDS: AMOXICILLIN/POTASSIUM CLAVULANATE 500/125MG TAB PO SCH ×2 (08:46→21:18)
[2018-05-21] MEDS: NIFEDIPINE XL 60MG TAB PO SCH ×2 (08:46→21:18)
[2018-05-21] MEDS: FAMOTIDINE 20MG TABLET PO SCH (08:46)
[2018-05-21] MEDS: CITRIC ACID/SODIUM CITRATE SOLN 30ML UDC PO SCH ×3 (10:49→16:52)
[2018-05-21 12:00] VITALS: BP_SYST 127; BP_SYST 138; BP_DIAS 57; BP_DIAS 70
[2018-05-21] MEDS: DIPHENHYDRAMINE 25MG CAPSULE PO PRN (14:13)
[2018-05-21 16:00] VITALS: BP 110/57
[2018-05-21 19:43] VITALS: BP 136/67
[2018-05-21] MEDS: ATORVASTATIN CALCIUM 10MG TABLET PO SCH (21:18)
[2018-05-22] VITALS: BP 139/59
[2018-05-22] MEDS: OXYCODONE HCL/ACETAMINOPHEN 5/325MG TABLET PO PRN ×2 (01:15→08:36)
[2018-05-22 04:00] VITALS: BP 123/68
[2018-05-22] MEDS: HYDRALAZINE HCL 25MG TABLET PO SCH ×4 (06:09→21:46)
[2018-05-22] MEDS: GABAPENTIN 300MG CAPSULE PO SCH ×3 (06:09→13:49)
[2018-05-22 07:03] LABS: BASOPHILS % 0.7 % (0.0-2.0); EOSINOPHILS % 9.8 % (0.0-5.0); HEMATOCRIT. 23.3 % (36.0-48.0); HEMOGLOBIN. 7.4 g/dL (12.0-16.0); LYMPHOCYTES % 38.3 % (20.0-50.0); MEAN CORPUSCULAR HEMOGLOBIN 20.1 pg (28.0-32.0); MEAN CORPUSCULAR VOLUME 63.3 fL (81.0-99.0); MONOCYTES % 10.7 % (2.0-8.0); NEUTROPHILS % 40.5 % (40.0-76.0); PLATELET 248 x1000/uL (130-400); RED BLOOD CELL COUNT 3.68 mill/uL (4.2-5.4); RED CELL DISTRIBUTION WIDTH 25.1 % (11.6-14.6)
[2018-05-22] MEDS: FAMOTIDINE 20MG TABLET PO SCH (08:21)
[2018-05-22] MEDS: CITRIC ACID/SODIUM CITRATE SOLN 30ML UDC PO SCH ×4 (08:21→21:34)
[2018-05-22] MEDS: NIFEDIPINE XL 60MG TAB PO SCH ×3 (08:21→21:34)
[2018-05-22] MEDS: ASPIRIN 81MG EC TABLET PO SCH (08:21)
[2018-05-22 08:27] VITALS: BP 149/76
[2018-05-22] MEDS: AMOXICILLIN/POTASSIUM CLAVULANATE 500/125MG TAB PO SCH ×3 (08:28→21:34)
[2018-05-22 12:42] VITALS: BP 149/71
[2018-05-22 16:26] VITALS: BP 125/59
[2018-05-22 19:31] LABS: AMMONIA 35 uMol/L (<32)
[2018-05-22 20:00] VITALS: BP 148/75
[2018-05-22] MEDS: ATORVASTATIN CALCIUM 10MG TABLET PO SCH ×2 (21:00→21:34)
[2018-05-22] MEDS: DIPHENHYDRAMINE 25MG CAPSULE PO PRN (21:35)
[2018-05-23] MEDS: OXYCODONE HCL/ACETAMINOPHEN 5/325MG TABLET PO PRN ×4 (03:02→23:43)
[2018-05-23] MEDS: DIPHENHYDRAMINE 25MG CAPSULE PO PRN ×2 (03:07→10:36)
[2018-05-23 04:00] VITALS: BP 157/85
[2018-05-23 05:56] LABS: HEMATOCRIT. 23.8 % (36.0-48.0); HEMOGLOBIN. 7.5 g/dL (12.0-16.0); MEAN CORPUSCULAR HEMOGLOBIN 20.1 pg (28.0-32.0); MEAN CORPUSCULAR VOLUME 63.5 fL (81.0-99.0); MEAN PLATELET VOLUME 10.5 fl (7.4-10.4); PLATELET 276 x1000/uL (130-400); RED BLOOD CELL COUNT 3.75 mill/uL (4.2-5.4); RED CELL DISTRIBUTION WIDTH 25.8 % (11.6-14.6)
[2018-05-23] MEDS: HYDRALAZINE HCL 25MG TABLET PO SCH ×4 (06:38→23:51)
[2018-05-23] MEDS: GABAPENTIN 300MG CAPSULE PO SCH ×3 (06:38→21:43)
[2018-05-23] MEDS: CITRIC ACID/SODIUM CITRATE SOLN 30ML UDC PO SCH ×3 (08:20→18:57)
[2018-05-23] MEDS: NIFEDIPINE XL 60MG TAB PO SCH ×2 (08:21→21:43)
[2018-05-23] MEDS: ASPIRIN 81MG EC TABLET PO SCH (08:21)
[2018-05-23] MEDS: FAMOTIDINE 20MG TABLET PO SCH (08:22)
[2018-05-23 08:38] VITALS: BP 168/78
[2018-05-23 12:46] VITALS: BP 146/87
[2018-05-23 13:04] LABS: PLATELET ESTIMATE NORMAL
[2018-05-23 16:57] VITALS: BP 149/49
[2018-05-23] MEDS ORDERED: METFORMIN HCL 500MG SR TABLET 24HR PO SCH (17:00)
[2018-05-23 20:00] VITALS: BP 143/53
[2018-05-23] MEDS: ATORVASTATIN CALCIUM 10MG TABLET PO SCH (21:42)
[2018-05-24] VITALS (7 sets, daily range): BP systolic 121–170; BP diastolic 64–88
[2018-05-24] MEDS: GABAPENTIN 300MG CAPSULE PO SCH ×3 (05:58→23:44)
[2018-05-24] MEDS: LORAZEPAM 1MG TABLET PO PRN ×2 (05:58→06:08)
[2018-05-24] MEDS: HYDRALAZINE HCL 25MG TABLET PO SCH ×3 (05:59→23:44)
[2018-05-24] MEDS ORDERED: SODIUM POLYSTYRENE SULFONATE 15 G/60 ML BOT PO SCH (08:30)
[2018-05-24] MEDS: CITRIC ACID/SODIUM CITRATE SOLN 30ML UDC PO SCH ×3 (09:28→17:22)
[2018-05-24] MEDS: ASPIRIN 81MG EC TABLET PO SCH (09:28)
[2018-05-24] MEDS: NIFEDIPINE XL 60MG TAB PO SCH ×2 (09:28→23:44)
[2018-05-24] MEDS: FAMOTIDINE 20MG TABLET PO SCH (09:29)
[2018-05-24] MEDS: OXYCODONE HCL/ACETAMINOPHEN 5/325MG TABLET PO PRN ×3 (11:18→23:43)
[2018-05-24] MEDS: NICOTINE 7MG PATCH TD SCH (12:00)
[2018-05-24 12:05] LABS: *AMPHETAMINES SCREEN URINE NEGATIVE (NEGATIVE); *BARBITURATES SCREEN URINE NEGATIVE (NEGATIVE); *BENZODIAZEPINES SCREEN URINE NEGATIVE (NEGATIVE); *COCAINE SCREEN URINE NEGATIVE (NEGATIVE); OPIATES URINE SCREEN NEGATIVE (NEGATIVE); PHENCYCLIDINE URINE SCREEN NEGATIVE (NEGATIVE)
[2018-05-24 12:06] LABS: CANNABINOID URINE SCREEN NEGATIVE (NEGATIVE); METHADONE URINE SCREEN NEGATIVE (NEGATIVE)
[2018-05-24] MEDS: DIPHENHYDRAMINE 25MG CAPSULE PO PRN ×2 (12:24→19:53)
[2018-05-24] MEDS ORDERED: SODIUM POLYSTYRENE SULFONATE 15 G/60 ML BOT PO NR (13:34)
[2018-05-24 15:56] LABS: BASOPHILS % 0.9 % (0.0-2.0); EOSINOPHILS % 8.1 % (0.0-5.0); HEMATOCRIT. 24.6 % (36.0-48.0); HEMOGLOBIN. 7.8 g/dL (12.0-16.0); LYMPHOCYTES % 36.5 % (20.0-50.0); MEAN CORPUSCULAR HEMOGLOBIN 20.2 pg (28.0-32.0); MEAN CORPUSCULAR VOLUME 63.5 fL (81.0-99.0); MEAN PLATELET VOLUME 9.3 fl (7.4-10.4); MONOCYTES % 9.3 % (2.0-8.0); NEUTROPHILS % 45.2 % (40.0-76.0); PLATELET 234 x1000/uL (130-400); RED BLOOD CELL COUNT 3.87 mill/uL (4.2-5.4); RED CELL DISTRIBUTION WIDTH 25.2 % (11.6-14.6)
[2018-05-24 17:00] LABS: PLATELET ESTIMATE NORMAL
[2018-05-24] MEDS: GLIPIZIDE 5MG TABLET PO SCH (18:22)
[2018-05-24] MEDS: ATORVASTATIN CALCIUM 10MG TABLET PO SCH (21:00)
[2018-05-24] MEDS: ATORVASTATIN CALCIUM 20MG TABLET PO SCH (23:44)
[2018-05-25] VITALS: BP 129/70
[2018-05-25] MEDS: LORAZEPAM 1MG TABLET PO PRN (00:14)
[2018-05-25] MEDS: DIPHENHYDRAMINE 25MG CAPSULE PO PRN (02:59)
[2018-05-25 04:11] VITALS: BP 159/75
[2018-05-25] MEDS: GABAPENTIN 300MG CAPSULE PO SCH ×3 (06:00→23:16)
[2018-05-25] MEDS: GLIPIZIDE 5MG TABLET PO SCH (06:00)
[2018-05-25] MEDS: HYDRALAZINE HCL 25MG TABLET PO SCH ×3 (06:00→23:16)
[2018-05-25] MEDS: OXYCODONE HCL/ACETAMINOPHEN 5/325MG TABLET PO PRN ×2 (06:01→16:01)
[2018-05-25] MEDS ORDERED: DIAZEPAM 5 MG TABLET PO NR (07:30)
[2018-05-25 08:00] VITALS: BP 138/68
[2018-05-25] MEDS: FAMOTIDINE 20MG TABLET PO SCH (09:04)
[2018-05-25] MEDS: ASPIRIN 81MG EC TABLET PO SCH (09:04)
[2018-05-25] MEDS: CITRIC ACID/SODIUM CITRATE SOLN 30ML UDC PO SCH ×3 (09:04→17:00)
[2018-05-25] MEDS: NICOTINE 7MG PATCH TD SCH (09:05)
[2018-05-25] MEDS: NIFEDIPINE XL 60MG TAB PO SCH ×2 (09:05→23:16)
[2018-05-25 12:00] VITALS: BP_SYST 110; BP_SYST 132; BP_DIAS 50; BP_DIAS 78
[2018-05-25 16:00] VITALS: BP 131/68
[2018-05-25 22:15] VITALS: BP 116/55
[2018-05-25] MEDS: ATORVASTATIN CALCIUM 20MG TABLET PO SCH (23:16)
[2018-05-25] MEDS: EPOETIN ALFA 10000UNITS/ML VIAL SUBCUT SCH (23:17)
[2018-05-26] VITALS: BP 117/55
[2018-05-26] MEDS: DIPHENHYDRAMINE 25MG CAPSULE PO PRN ×2 (01:26→09:19)
[2018-05-26 02:07] LABS: BASOPHILS % 0.8 % (0.0-2.0); EOSINOPHILS % 8.5 % (0.0-5.0); HEMATOCRIT. 26.5 % (36.0-48.0); HEMOGLOBIN. 8.2 g/dL (12.0-16.0); LYMPHOCYTES % 28.6 % (20.0-50.0); MEAN CORPUSCULAR HEMOGLOBIN 20.3 pg (28.0-32.0); MEAN CORPUSCULAR VOLUME 65.3 fL (81.0-99.0); MONOCYTES % 7.5 % (2.0-8.0); NEUTROPHILS % 54.6 % (40.0-76.0); RED BLOOD CELL COUNT 4.06 mill/uL (4.2-5.4); RED CELL DISTRIBUTION WIDTH 25.3 % (11.6-14.6)
[2018-05-26] MEDS: OXYCODONE HCL/ACETAMINOPHEN 5/325MG TABLET PO PRN ×3 (02:39→21:10)
[2018-05-26 04:00] VITALS: BP 133/72
[2018-05-26] MEDS: GLIPIZIDE 5MG TABLET PO SCH (06:21)
[2018-05-26] MEDS: HYDRALAZINE HCL 25MG TABLET PO SCH ×3 (06:21→21:11)
[2018-05-26] MEDS: GABAPENTIN 300MG CAPSULE PO SCH ×3 (06:21→21:10)
[2018-05-26 07:03] LABS: EOSINOPHILS % 9.8 % (0.0-5.0); LYMPHOCYTES % 31.1 % (20.0-50.0); MEAN CORPUSCULAR HEMOGLOBIN 20.4 pg (28.0-32.0); MEAN PLATELET VOLUME 10.7 fl (7.4-10.4); MONOCYTES % 11.7 % (2.0-8.0); NEUTROPHILS % 46.4 % (40.0-76.0); PLATELET 247 x1000/uL (130-400); RED BLOOD CELL COUNT 3.42 mill/uL (4.2-5.4); RED CELL DISTRIBUTION WIDTH 23.8 % (11.6-14.6)
[2018-05-26 08:00] VITALS: BP 130/48
[2018-05-26 08:30] LABS: HEMATOCRIT. 21.5 % (36.0-48.0)
[2018-05-26] MEDS: FAMOTIDINE 20MG TABLET PO SCH (09:20)
[2018-05-26] MEDS: ASPIRIN 81MG EC TABLET PO SCH (09:21)
[2018-05-26] MEDS: NICOTINE 7MG PATCH TD SCH (09:21)
[2018-05-26] MEDS: NIFEDIPINE XL 60MG TAB PO SCH ×2 (09:21→21:10)
[2018-05-26] MEDS: CITRIC ACID/SODIUM CITRATE SOLN 30ML UDC PO SCH ×3 (09:22→17:04)
[2018-05-26 11:12] LABS: PLATELET ESTIMATE NORMAL
[2018-05-26 12:00] VITALS: BP 162/75
[2018-05-26 16:00] VITALS: BP 118/58
[2018-05-26 20:00] VITALS: BP 122/58
[2018-05-26] MEDS: ATORVASTATIN CALCIUM 20MG TABLET PO SCH (21:10)
[2018-05-27] VITALS: BP 135/62
[2018-05-27] MEDS: DIPHENHYDRAMINE 25MG CAPSULE PO PRN ×2 (02:10→15:20)
[2018-05-27] MEDS: OXYCODONE HCL/ACETAMINOPHEN 5/325MG TABLET PO PRN ×3 (03:26→21:22)
[2018-05-27 04:00] VITALS: BP 131/67
[2018-05-27] MEDS: ACETAMINOPHEN 325MG TABLET PO PRN ×2 (05:39→15:17)
[2018-05-27] MEDS: GABAPENTIN 300MG CAPSULE PO SCH ×3 (05:40→21:22)
[2018-05-27] MEDS: HYDRALAZINE HCL 25MG TABLET PO SCH ×3 (05:40→21:23)
[2018-05-27] MEDS: GLIPIZIDE 5MG TABLET PO SCH (06:34)
[2018-05-27 08:00] VITALS: BP 127/63
[2018-05-27] MEDS: ASPIRIN 81MG EC TABLET PO SCH (08:49)
[2018-05-27] MEDS: FAMOTIDINE 20MG TABLET PO SCH (08:49)
[2018-05-27] MEDS: CITRIC ACID/SODIUM CITRATE SOLN 30ML UDC PO SCH ×3 (08:49→17:00)
[2018-05-27] MEDS: NIFEDIPINE XL 60MG TAB PO SCH ×2 (08:49→21:22)
[2018-05-27] MEDS: NICOTINE 7MG PATCH TD SCH (08:55)
[2018-05-27 11:53] VITALS: BP 131/67
[2018-05-27 12:29] LABS: BASOPHILS % 1.2 % (0.0-2.0); EOSINOPHILS % 9.5 % (0.0-5.0); LYMPHOCYTES % 36.1 % (20.0-50.0); MEAN CORPUSCULAR HEMOGLOBIN 20.2 pg (28.0-32.0); MEAN CORPUSCULAR VOLUME 63.9 fL (81.0-99.0); MONOCYTES % 9.2 % (2.0-8.0); RED BLOOD CELL COUNT 3.47 mill/uL (4.2-5.4); RED CELL DISTRIBUTION WIDTH 23.6 % (11.6-14.6)
[2018-05-27 12:42] LABS: HEMATOCRIT. 22.2 % (36.0-48.0)
[2018-05-27 14:28] LABS: PLATELET 226 x1000/uL (130-400)
[2018-05-27 14:29] LABS: MEAN PLATELET VOLUME 10.1 fl (7.4-10.4)
[2018-05-27 16:00] VITALS: BP 129/61
[2018-05-27 20:00] VITALS: BP 126/63
[2018-05-27] MEDS: LORAZEPAM 1MG TABLET PO PRN (21:20)
[2018-05-27] MEDS: ATORVASTATIN CALCIUM 20MG TABLET PO SCH (21:21)
[2018-05-28] VITALS: BP 122/65
[2018-05-28] MEDS: DIPHENHYDRAMINE 25MG CAPSULE PO PRN ×2 (01:21→21:46)
[2018-05-28 04:00] VITALS: BP 154/68
[2018-05-28] MEDS: HYDRALAZINE HCL 25MG TABLET PO SCH ×3 (06:11→21:45)
[2018-05-28] MEDS: GABAPENTIN 300MG CAPSULE PO SCH ×3 (06:11→21:46)
[2018-05-28] MEDS: GLIPIZIDE 5MG TABLET PO SCH (06:11)
[2018-05-28 08:00] VITALS: BP 135/70
[2018-05-28] MEDS: NICOTINE 7MG PATCH TD SCH (09:00)
[2018-05-28] MEDS: FAMOTIDINE 20MG TABLET PO SCH (09:00)
[2018-05-28] MEDS: CITRIC ACID/SODIUM CITRATE SOLN 30ML UDC PO SCH ×3 (09:00→17:00)
[2018-05-28] MEDS: NIFEDIPINE XL 60MG TAB PO SCH ×2 (09:00→21:45)
[2018-05-28] MEDS: ASPIRIN 81MG EC TABLET PO SCH (09:00)
[2018-05-28 12:00] VITALS: BP 155/69
[2018-05-28] MEDS: OXYCODONE HCL/ACETAMINOPHEN 5/325MG TABLET PO PRN (14:21)
[2018-05-28 16:00] VITALS: BP 148/82
[2018-05-28 16:43] LABS: BASOPHILS % 0.9 % (0.0-2.0); EOSINOPHILS % 9.2 % (0.0-5.0); HEMATOCRIT. 22.9 % (36.0-48.0); HEMOGLOBIN. 7.3 g/dL (12.0-16.0); LYMPHOCYTES % 30.9 % (20.0-50.0); MEAN CORPUSCULAR HEMOGLOBIN 20.1 pg (28.0-32.0); MEAN CORPUSCULAR VOLUME 62.9 fL (81.0-99.0); MEAN PLATELET VOLUME 11.2 fl (7.4-10.4); MONOCYTES % 9.5 % (2.0-8.0); NEUTROPHILS % 49.5 % (40.0-76.0); PLATELET 284 x1000/uL (130-400); RED BLOOD CELL COUNT 3.63 mill/uL (4.2-5.4); RED CELL DISTRIBUTION WIDTH 22.5 % (11.6-14.6)
[2018-05-28 18:34] LABS: PLATELET ESTIMATE NORMAL
[2018-05-28 19:53] LABS: TOTAL IRON BINDING CAPACITY 180 ug/dL (250-450)
[2018-05-28 20:00] VITALS: BP 140/77
[2018-05-28 20:11] LABS: FOLIC ACID (FOLATE) SERUM 9.9 ng/mL (>5.38)
[2018-05-28] MEDS: HYDROCODONE/ACETAMINOPHEN 5/325MG TABLET PO PRN (20:15)
[2018-05-28] MEDS: ATORVASTATIN CALCIUM 20MG TABLET PO SCH (21:44)
[2018-05-28] MEDS: EPOETIN ALFA 10000UNITS/ML VIAL SUBCUT SCH (21:46)
[2018-05-29] VITALS (7 sets, daily range): BP systolic 115–166; BP diastolic 59–84
[2018-05-29] MEDS: DIPHENHYDRAMINE 25MG CAPSULE PO PRN ×2 (05:17→12:03)
[2018-05-29] MEDS: HYDRALAZINE HCL 25MG TABLET PO SCH ×3 (05:18→22:00)
[2018-05-29] MEDS: GABAPENTIN 300MG CAPSULE PO SCH ×3 (05:18→21:44)
[2018-05-29] MEDS: GLIPIZIDE 5MG TABLET PO SCH (05:18)
[2018-05-29] MEDS: HYDROCODONE/ACETAMINOPHEN 5/325MG TABLET PO PRN (05:20)
[2018-05-29] MEDS: NIFEDIPINE XL 60MG TAB PO SCH ×2 (09:00→21:44)
[2018-05-29] MEDS: CITRIC ACID/SODIUM CITRATE SOLN 30ML UDC PO SCH ×3 (09:46→17:00)
[2018-05-29] MEDS: ASPIRIN 81MG EC TABLET PO SCH (09:46)
[2018-05-29] MEDS: NICOTINE 7MG PATCH TD SCH (09:46)
[2018-05-29] MEDS: FAMOTIDINE 20MG TABLET PO SCH (09:46)
[2018-05-29] MEDS: HYDROCODONE/ACETAMINOPHEN 10/325MG TABLET PO PRN ×2 (09:54→21:44)
[2018-05-29] MEDS: ATORVASTATIN CALCIUM 20MG TABLET PO SCH (21:44)
[2018-05-30] VITALS: BP 130/88
[2018-05-30 05:44] VITALS: BP 143/78
[2018-05-30] MEDS: HYDRALAZINE HCL 25MG TABLET PO SCH ×3 (06:10→22:00)
[2018-05-30] MEDS: HYDROCODONE/ACETAMINOPHEN 10/325MG TABLET PO PRN (06:11)
[2018-05-30] MEDS: GLIPIZIDE 5MG TABLET PO SCH (06:11)
[2018-05-30] MEDS: GABAPENTIN 300MG CAPSULE PO SCH ×3 (06:11→21:57)
[2018-05-30 06:47] LABS: BASOPHILS % 0.8 % (0.0-2.0); HEMATOCRIT. 23.9 % (36.0-48.0); HEMOGLOBIN. 7.5 g/dL (12.0-16.0); LYMPHOCYTES % 27.2 % (20.0-50.0); MEAN CORPUSCULAR HEMOGLOBIN 20.2 pg (28.0-32.0); MEAN CORPUSCULAR VOLUME 64.1 fL (81.0-99.0); MEAN PLATELET VOLUME 11.2 fl (7.4-10.4); MONOCYTES % 6.3 % (2.0-8.0); NEUTROPHILS % 58.7 % (40.0-76.0); PLATELET 287 x1000/uL (130-400); RED BLOOD CELL COUNT 3.72 mill/uL (4.2-5.4); RED CELL DISTRIBUTION WIDTH 23.5 % (11.6-14.6)
[2018-05-30] MEDS: CITRIC ACID/SODIUM CITRATE SOLN 30ML UDC PO SCH ×3 (09:17→18:10)
[2018-05-30] MEDS: NIFEDIPINE XL 60MG TAB PO SCH ×2 (09:21→21:58)
[2018-05-30] MEDS: ASPIRIN 81MG EC TABLET PO SCH (09:21)
[2018-05-30] MEDS: FAMOTIDINE 20MG TABLET PO SCH (09:22)
[2018-05-30] MEDS: NICOTINE 7MG PATCH TD SCH (09:24)
[2018-05-30] MEDS: HYDROCODONE/ACETAMINOPHEN 5/325MG TABLET PO PRN (09:31)
[2018-05-30] MEDS: DIPHENHYDRAMINE 25MG CAPSULE PO PRN (09:32)
[2018-05-30 12:00] VITALS: BP 146/86
[2018-05-30] MEDS ORDERED: SODIUM POLYSTYRENE SULFONATE 15 G/60 ML BOT PO SCH (12:30)
[2018-05-30 20:00] VITALS: BP 115/59
[2018-05-30] MEDS: ATORVASTATIN CALCIUM 20MG TABLET PO SCH (21:57)
[2018-05-30] MEDS: EPOETIN ALFA 10000UNITS/ML VIAL SUBCUT SCH (21:58)
[2018-05-31] VITALS: BP 117/61
[2018-05-31 04:16] VITALS: BP 140/66
[2018-05-31] MEDS: HYDROCODONE/ACETAMINOPHEN 10/325MG TABLET PO PRN ×3 (04:21→20:06)
[2018-05-31] MEDS: GLIPIZIDE 5MG TABLET PO SCH (06:21)
[2018-05-31] MEDS: HYDRALAZINE HCL 25MG TABLET PO SCH ×3 (06:21→21:16)
[2018-05-31] MEDS: GABAPENTIN 300MG CAPSULE PO SCH ×3 (06:21→21:16)
[2018-05-31 08:54] VITALS: BP 136/60
[2018-05-31] MEDS: CITRIC ACID/SODIUM CITRATE SOLN 30ML UDC PO SCH ×3 (09:00→16:46)
[2018-05-31] MEDS: NIFEDIPINE XL 60MG TAB PO SCH ×2 (09:00→20:06)
[2018-05-31] MEDS: FAMOTIDINE 20MG TABLET PO SCH (09:00)
[2018-05-31] MEDS: ASPIRIN 81MG EC TABLET PO SCH (09:00)
[2018-05-31] MEDS: NICOTINE 7MG PATCH TD SCH (09:00)
[2018-05-31 12:00] VITALS: BP 148/80
[2018-05-31] MEDS ORDERED: DIPHENHYDRAMINE 25MG CAPSULE PO PRN (12:15)
[2018-05-31] MEDS: DIPHENHYDRAMINE 25MG CAPSULE PO PRN (12:33)
[2018-05-31 15:14] LABS: EOSINOPHILS % 7.5 % (0.0-5.0); HEMATOCRIT. 24.1 % (36.0-48.0); HEMOGLOBIN. 7.4 g/dL (12.0-16.0); LYMPHOCYTES % 24.7 % (20.0-50.0); MEAN CORPUSCULAR HEMOGLOBIN 19.9 pg (28.0-32.0); MEAN CORPUSCULAR VOLUME 64.6 fL (81.0-99.0); MEAN PLATELET VOLUME 10.8 fl (7.4-10.4); MONOCYTES % 8.2 % (2.0-8.0); NEUTROPHILS % 58.6 % (40.0-76.0); PLATELET 289 x1000/uL (130-400); RED BLOOD CELL COUNT 3.73 mill/uL (4.2-5.4); RED CELL DISTRIBUTION WIDTH 23.6 % (11.6-14.6)
[2018-05-31 16:12] LABS: PLATELET ESTIMATE NORMAL
[2018-05-31 20:00] VITALS: BP 149/67
[2018-05-31] MEDS: ATORVASTATIN CALCIUM 20MG TABLET PO SCH (20:05)
[2018-06-01] VITALS: BP 152/74
[2018-06-01] MEDS: DIPHENHYDRAMINE 25MG CAPSULE PO PRN ×3 (00:13→22:10)
[2018-06-01] MEDS: POLYVINYL ALCOHOL OPHTH DROPS 15ML BOTHEYE PRN (00:16)
[2018-06-01] MEDS: HYDROCODONE/ACETAMINOPHEN 10/325MG TABLET PO PRN ×4 (02:30→22:11)
[2018-06-01 04:30] VITALS: BP 131/64
[2018-06-01] MEDS: GABAPENTIN 300MG CAPSULE PO SCH ×3 (05:12→21:34)
[2018-06-01] MEDS: HYDRALAZINE HCL 25MG TABLET PO SCH ×3 (05:12→21:34)
[2018-06-01] MEDS: GLIPIZIDE 5MG TABLET PO SCH (05:15)
[2018-06-01 08:00] VITALS: BP 145/72
[2018-06-01] MEDS: CITRIC ACID/SODIUM CITRATE SOLN 30ML UDC PO SCH ×3 (08:26→16:25)
[2018-06-01] MEDS: ASPIRIN 81MG EC TABLET PO SCH (08:27)
[2018-06-01] MEDS: NIFEDIPINE XL 60MG TAB PO SCH ×2 (08:27→21:35)
[2018-06-01] MEDS: NICOTINE 7MG PATCH TD SCH (08:27)
[2018-06-01] MEDS: FAMOTIDINE 20MG TABLET PO SCH (08:27)
[2018-06-01 12:00] VITALS: BP 142/68
[2018-06-01 16:00] VITALS: BP 142/63
[2018-06-01 20:00] VITALS: BP 141/61
[2018-06-01] MEDS: ATORVASTATIN CALCIUM 20MG TABLET PO SCH (21:34)
[2018-06-01 23:54] LABS: EOSINOPHILS % 7.9 % (0.0-5.0); HEMOGLOBIN. 7.2 g/dL (12.0-16.0); LYMPHOCYTES % 25.9 % (20.0-50.0); MEAN CORPUSCULAR HEMOGLOBIN 20.3 pg (28.0-32.0); MEAN CORPUSCULAR VOLUME 64.8 fL (81.0-99.0); MEAN PLATELET VOLUME 10.8 fl (7.4-10.4); MONOCYTES % 8.9 % (2.0-8.0); NEUTROPHILS % 56.3 % (40.0-76.0); PLATELET 294 x1000/uL (130-400); RED BLOOD CELL COUNT 3.54 mill/uL (4.2-5.4); RED CELL DISTRIBUTION WIDTH 23.9 % (11.6-14.6)
[2018-06-02 01:20] LABS: PLATELET ESTIMATE NORMAL
[2018-06-02 04:00] VITALS: BP 151/67
[2018-06-02] MEDS: DIPHENHYDRAMINE 25MG CAPSULE PO PRN ×3 (05:13→21:46)
[2018-06-02] MEDS: HYDROCODONE/ACETAMINOPHEN 10/325MG TABLET PO PRN ×2 (05:14→13:12)
[2018-06-02] MEDS: GLIPIZIDE 5MG TABLET PO SCH (05:57)
[2018-06-02] MEDS: GABAPENTIN 300MG CAPSULE PO SCH ×3 (05:58→21:45)
[2018-06-02] MEDS: HYDRALAZINE HCL 25MG TABLET PO SCH ×3 (05:58→21:46)
[2018-06-02 07:32] LABS: BASOPHILS % 0.6 % (0.0-2.0); EOSINOPHILS % 8.6 % (0.0-5.0); HEMATOCRIT. 24.9 % (36.0-48.0); HEMOGLOBIN. 7.7 g/dL (12.0-16.0); LYMPHOCYTES % 28.2 % (20.0-50.0); MEAN CORPUSCULAR HEMOGLOBIN 20.1 pg (28.0-32.0); MEAN PLATELET VOLUME 9.9 fl (7.4-10.4); MONOCYTES % 6.1 % (2.0-8.0); NEUTROPHILS % 56.5 % (40.0-76.0); PLATELET 278 x1000/uL (130-400); RED BLOOD CELL COUNT 3.84 mill/uL (4.2-5.4); RED CELL DISTRIBUTION WIDTH 24.2 % (11.6-14.6)
[2018-06-02 08:00] VITALS: BP 116/70
[2018-06-02] MEDS: NICOTINE 7MG PATCH TD SCH (08:37)
[2018-06-02] MEDS: CITRIC ACID/SODIUM CITRATE SOLN 30ML UDC PO SCH ×3 (08:37→17:27)
[2018-06-02] MEDS: FAMOTIDINE 20MG TABLET PO SCH (08:37)
[2018-06-02] MEDS: ASPIRIN 81MG EC TABLET PO SCH (08:38)
[2018-06-02] MEDS: NIFEDIPINE XL 60MG TAB PO SCH ×2 (08:38→21:46)
[2018-06-02 12:00] VITALS: BP 145/77
[2018-06-02 16:00] VITALS: BP 148/77
[2018-06-02 20:00] VITALS: BP 130/70
[2018-06-02] MEDS: ATORVASTATIN CALCIUM 20MG TABLET PO SCH (21:45)
[2018-06-02] MEDS: HYDROCODONE/ACETAMINOPHEN 5/325MG TABLET PO PRN (21:48)
[2018-06-03] VITALS: BP 129/68
[2018-06-03] MEDS: DIPHENHYDRAMINE 25MG CAPSULE PO PRN ×4 (04:36→22:27)
[2018-06-03] MEDS: HYDROCODONE/ACETAMINOPHEN 5/325MG TABLET PO PRN (04:37)
[2018-06-03] MEDS: POLYVINYL ALCOHOL OPHTH DROPS 15ML BOTHEYE PRN (04:38)
[2018-06-03] MEDS: HYDRALAZINE HCL 25MG TABLET PO SCH ×3 (05:36→21:19)
[2018-06-03] MEDS: GABAPENTIN 300MG CAPSULE PO SCH ×3 (06:52→21:19)
[2018-06-03] MEDS: GLIPIZIDE 5MG TABLET PO SCH (06:52)
[2018-06-03 08:00] VITALS: BP 152/81
[2018-06-03] MEDS ORDERED: HYDROCODONE/ACETAMINOPHEN 10/325MG TABLET PO PRN (08:15)
[2018-06-03] MEDS: CITRIC ACID/SODIUM CITRATE SOLN 30ML UDC PO SCH ×4 (08:55→18:00)
[2018-06-03] MEDS: NIFEDIPINE XL 60MG TAB PO SCH ×2 (08:56→21:19)
[2018-06-03] MEDS: ASPIRIN 81MG EC TABLET PO SCH (08:58)
[2018-06-03] MEDS: FAMOTIDINE 20MG TABLET PO SCH (08:58)
[2018-06-03] MEDS: NICOTINE 7MG PATCH TD SCH (08:58)
[2018-06-03] MEDS: HYDROCODONE/ACETAMINOPHEN 10/325MG TABLET PO PRN ×3 (10:00→22:28)
[2018-06-03 16:00] VITALS: BP 166/61
[2018-06-03] MEDS: ACETAMINOPHEN 325MG TABLET PO PRN (18:10)
[2018-06-03 20:00] VITALS: BP 143/92
[2018-06-03] MEDS: ATORVASTATIN CALCIUM 20MG TABLET PO SCH (21:19)
[2018-06-04] VITALS: BP 130/65
[2018-06-04 04:00] VITALS: BP 147/59
[2018-06-04] MEDS: HYDRALAZINE HCL 25MG TABLET PO SCH ×3 (05:38→21:52)
[2018-06-04] MEDS: GABAPENTIN 300MG CAPSULE PO SCH ×3 (05:39→21:52)
[2018-06-04] MEDS: GLIPIZIDE 5MG TABLET PO SCH (06:47)
[2018-06-04] MEDS: HYDROCODONE/ACETAMINOPHEN 10/325MG TABLET PO PRN ×2 (06:48→20:50)
[2018-06-04 08:00] VITALS: BP 120/51
[2018-06-04] MEDS: ASPIRIN 81MG EC TABLET PO SCH (08:41)
[2018-06-04] MEDS: FAMOTIDINE 20MG TABLET PO SCH (08:41)
[2018-06-04] MEDS: NIFEDIPINE XL 60MG TAB PO SCH ×2 (08:42→20:49)
[2018-06-04] MEDS: NICOTINE 7MG PATCH TD SCH (08:45)
[2018-06-04 12:00] VITALS: BP 152/92
[2018-06-04] MEDS: CITRIC ACID/SODIUM CITRATE SOLN 30ML UDC PO SCH ×2 (13:23→17:41)
[2018-06-04 16:00] VITALS: BP 122/66
[2018-06-04 20:00] VITALS: BP 136/72
[2018-06-04] MEDS: ATORVASTATIN CALCIUM 20MG TABLET PO SCH (20:49)
[2018-06-04] MEDS: DIPHENHYDRAMINE 25MG CAPSULE PO PRN (22:11)
[2018-06-05] VITALS: BP 130/64
[2018-06-05 04:00] VITALS: BP 145/74
[2018-06-05] MEDS: DIPHENHYDRAMINE 25MG CAPSULE PO PRN (04:41)
[2018-06-05] MEDS: HYDROCODONE/ACETAMINOPHEN 10/325MG TABLET PO PRN ×2 (04:41→21:19)
[2018-06-05] MEDS: HYDRALAZINE HCL 25MG TABLET PO SCH ×3 (06:03→22:00)
[2018-06-05] MEDS: GABAPENTIN 300MG CAPSULE PO SCH ×3 (06:03→21:18)
[2018-06-05] MEDS: GLIPIZIDE 5MG TABLET PO SCH (06:10)
[2018-06-05 06:42] LABS: BASOPHILS % 0.8 % (0.0-2.0); EOSINOPHILS % 9.9 % (0.0-5.0); HEMATOCRIT. 24.6 % (36.0-48.0); HEMOGLOBIN. 7.6 g/dL (12.0-16.0); LYMPHOCYTES % 29.1 % (20.0-50.0); MEAN CORPUSCULAR HEMOGLOBIN 20.2 pg (28.0-32.0); MEAN CORPUSCULAR VOLUME 65.2 fL (81.0-99.0); MEAN PLATELET VOLUME 9.7 fl (7.4-10.4); MONOCYTES % 7.9 % (2.0-8.0); NEUTROPHILS % 52.3 % (40.0-76.0); PLATELET 253 x1000/uL (130-400); RED BLOOD CELL COUNT 3.77 mill/uL (4.2-5.4); RED CELL DISTRIBUTION WIDTH 24.8 % (11.6-14.6)
[2018-06-05 08:00] VITALS: BP 137/71
[2018-06-05] MEDS: NICOTINE 7MG PATCH TD SCH (08:45)
[2018-06-05] MEDS: NIFEDIPINE XL 60MG TAB PO SCH ×2 (08:45→21:19)
[2018-06-05] MEDS: CITRIC ACID/SODIUM CITRATE SOLN 30ML UDC PO SCH ×3 (08:45→16:37)
[2018-06-05] MEDS: ASPIRIN 81MG EC TABLET PO SCH (08:45)
[2018-06-05] MEDS: FAMOTIDINE 20MG TABLET PO SCH (08:45)
[2018-06-05] MEDS: ACETAMINOPHEN 325MG TABLET PO PRN (08:49)
[2018-06-05] MEDS ORDERED: ATOR20TA PO (11:26)
[2018-06-05] MEDS ORDERED: GLIP5TAB12 PO (11:26)
[2018-06-05] MEDS ORDERED: FAMO20TA8 PO (11:26)
[2018-06-05] MEDS ORDERED: NIFE60TA64 PO (11:26)
[2018-06-05] MEDS ORDERED: NICO-786 TD (11:26)
[2018-06-05] MEDS ORDERED: CITR473S PO (11:26)
[2018-06-05] MEDS ORDERED: ASPI-1158 PO (11:26)
[2018-06-05] MEDS ORDERED: GABA-531 PO (11:26)
[2018-06-05] MEDS ORDERED: HYDR-4134 PO (11:26)
[2018-06-05 12:00] VITALS: BP 126/72
[2018-06-05 19:00] VITALS: BP 152/83
[2018-06-05] MEDS: ATORVASTATIN CALCIUM 20MG TABLET PO SCH (21:19)
[2018-06-06] VITALS: BP 139/61
[2018-06-06 03:45] VITALS: BP 127/76
[2018-06-06] MEDS: DIPHENHYDRAMINE 25MG CAPSULE PO PRN ×2 (03:46→21:24)
[2018-06-06] MEDS: HYDROCODONE/ACETAMINOPHEN 10/325MG TABLET PO PRN ×3 (03:47→20:12)
[2018-06-06] MEDS: HYDRALAZINE HCL 25MG TABLET PO SCH ×3 (06:51→21:25)
[2018-06-06] MEDS: GABAPENTIN 300MG CAPSULE PO SCH ×3 (06:51→21:24)
[2018-06-06] MEDS: GLIPIZIDE 5MG TABLET PO SCH (06:51)
[2018-06-06 08:09] VITALS: BP 146/73
[2018-06-06] MEDS: ASPIRIN 81MG EC TABLET PO SCH (08:14)
[2018-06-06] MEDS: CITRIC ACID/SODIUM CITRATE SOLN 30ML UDC PO SCH ×3 (08:14→16:31)
[2018-06-06] MEDS: FAMOTIDINE 20MG TABLET PO SCH (08:14)
[2018-06-06] MEDS: NIFEDIPINE XL 60MG TAB PO SCH ×2 (08:14→20:10)
[2018-06-06] MEDS: NICOTINE 7MG PATCH TD SCH (08:15)
[2018-06-06 11:54] VITALS: BP 156/79
[2018-06-06 15:40] VITALS: BP 146/83
[2018-06-06 20:00] VITALS: BP 154/92
[2018-06-06] MEDS: ATORVASTATIN CALCIUM 20MG TABLET PO SCH (20:10)
[2018-06-07] VITALS: BP 148/55
[2018-06-07] MEDS: HYDROCODONE/ACETAMINOPHEN 10/325MG TABLET PO PRN ×2 (02:30→20:21)
[2018-06-07 04:00] VITALS: BP 126/57
[2018-06-07] MEDS: GLIPIZIDE 5MG TABLET PO SCH (06:39)
[2018-06-07] MEDS: ACETAMINOPHEN 325MG TABLET PO PRN ×2 (06:39→23:27)
[2018-06-07] MEDS: GABAPENTIN 300MG CAPSULE PO SCH ×3 (06:40→21:25)
[2018-06-07] MEDS: HYDRALAZINE HCL 25MG TABLET PO SCH ×3 (06:40→21:25)
[2018-06-07 08:00] VITALS: BP 142/72
[2018-06-07] MEDS: ASPIRIN 81MG EC TABLET PO SCH (10:13)
[2018-06-07] MEDS: NIFEDIPINE XL 60MG TAB PO SCH ×2 (10:13→20:21)
[2018-06-07] MEDS: FAMOTIDINE 20MG TABLET PO SCH (10:14)
[2018-06-07] MEDS: NICOTINE 7MG PATCH TD SCH (10:15)
[2018-06-07] MEDS: CITRIC ACID/SODIUM CITRATE SOLN 30ML UDC PO SCH ×3 (10:42→18:26)
[2018-06-07 11:02] LABS: EOSINOPHILS % 8.3 % (0.0-5.0); HEMOGLOBIN. 7.8 g/dL (12.0-16.0); MEAN CORPUSCULAR HEMOGLOBIN 20.1 pg (28.0-32.0); MEAN CORPUSCULAR VOLUME 64.7 fL (81.0-99.0); MEAN PLATELET VOLUME 10.6 fl (7.4-10.4); MONOCYTES % 6.9 % (2.0-8.0); NEUTROPHILS % 50.8 % (40.0-76.0); PLATELET 296 x1000/uL (130-400); RED BLOOD CELL COUNT 3.87 mill/uL (4.2-5.4); RED CELL DISTRIBUTION WIDTH 23.9 % (11.6-14.6)
[2018-06-07 12:00] VITALS: BP 131/74
[2018-06-07] MEDS: DIPHENHYDRAMINE 25MG CAPSULE PO PRN ×2 (13:32→20:27)
[2018-06-07 16:00] VITALS: BP 146/86
[2018-06-07 20:00] VITALS: BP 179/79
[2018-06-07] MEDS: ATORVASTATIN CALCIUM 20MG TABLET PO SCH (20:20)
[2018-06-08] VITALS: BP 136/63
[2018-06-08 04:00] VITALS: BP 136/70
[2018-06-08] MEDS: GABAPENTIN 300MG CAPSULE PO SCH (06:55)
[2018-06-08] MEDS: DIPHENHYDRAMINE 25MG CAPSULE PO PRN (06:56)
[2018-06-08] MEDS: GLIPIZIDE 5MG TABLET PO SCH (06:56)
[2018-06-08] MEDS: HYDRALAZINE HCL 25MG TABLET PO SCH (06:56)
[2018-06-08] MEDS: HYDROCODONE/ACETAMINOPHEN 10/325MG TABLET PO PRN (06:56)
[2018-06-08 08:00] VITALS: BP 144/70
[2018-06-08] MEDS: CITRIC ACID/SODIUM CITRATE SOLN 30ML UDC PO SCH (09:50)
[2018-06-08] MEDS: ASPIRIN 81MG EC TABLET PO SCH (09:50)
[2018-06-08] MEDS: FAMOTIDINE 20MG TABLET PO SCH (09:51)
[2018-06-08] MEDS: NIFEDIPINE XL 60MG TAB PO SCH (09:52)
[2018-06-08] MEDS: NICOTINE 7MG PATCH TD SCH (09:52)
[2018-06-08 10:49] VITALS: BP 144/70
== END 2018-06-08 12:53 | disposition home or self-care (01) | DRG 469 ==
LOC: ER 23:50 → 8WST 05-15 03:59 → EDBEDREQ 05-15 04:04 → EDBEDREQTM 05-15 04:04 → ENRESERV 05-15 07:27
PROVIDERS: ADMIT Internal Medicine; ATTEND Internal Medicine
DX: N17.0 Acute kidney failure with tubular necrosis (principal); E11.22 Type 2 diabetes mellitus with diabetic chronic kidney disease; E11.40 Type 2 diabetes mellitus with diabetic neuropathy, unspecified; E44.0 Moderate protein-calorie malnutrition; I69.354 Hemiplegia and hemiparesis following cerebral infarction affecting left non-dominant side; D50.9 Iron deficiency anemia, unspecified; I12.9 Hypertensive chronic kidney disease with stage 1 through stage 4 chronic kidney disease, or unspecified chronic kidney disease; F17.200 Nicotine dependence, unspecified, uncomplicated; M94.0 Chondrocostal junction syndrome [Tietze]; N18.4 Chronic kidney disease, stage 4 (severe); E66.01 Morbid (severe) obesity due to excess calories; E78.5 Hyperlipidemia, unspecified; H66.91 Otitis media, unspecified, right ear; E11.36 Type 2 diabetes mellitus with diabetic cataract; E78.00 Pure hypercholesterolemia, unspecified; N39.0 Urinary tract infection, site not specified; H54.7 Unspecified visual loss; M48.061 Spinal stenosis, lumbar region without neurogenic claudication; Z79.899 Other long term (current) drug therapy; Z79.82 Long term (current) use of aspirin; Z59.0 Homelessness; Z79.84 Long term (current) use of oral hypoglycemic drugs; Z91.19 Patient's noncompliance with other medical treatment and regimen; Z68.41 Body mass index [BMI] 40.0-44.9, adult
CPT/HCPCS: 36415; 71045; 72141; 72146; 72148; 80048; 80053; 80061; 80305; 82140; 82550; 82607; 82728; 82746; 82962; 83036; 83540; 83550; 83735; 83880; 85025; 85610; 87077; 87086; 87186; 93005; 93306; 93970; 97116; 97162; 99285; C1893; J0885; Q0163

== ENCOUNTER 2018-06-23 14:58 | Inpatient (IN) | payer MEDICAID ==
[~2018-06-23] VITALS: Ht 172.7 cm; Wt 103.4 kg
[~2018-06-23 14:58] MED LIST changes: -ASPI-1158; +ASPI-1158 PO; +ATOR20TA PO; +CITR473S PO; +FAMO20TA8 PO; +GLIP5TAB12 PO; -LISI2.5T47 PO; +NICO-786 TD; -NIFE60TA35 PO; +NIFE60TA64 PO; -OMEP20CA10 PO
[2018-06-23] MEDS ORDERED: DIPHENHYDRAMINE 50MG/ML VIAL IV ONE (15:45)
[2018-06-23] MEDS ORDERED: METOCLOPRAMIDE HCL 10MG/2ML VIAL IV ONE (15:45)
[2018-06-23] MEDS ORDERED: METHYLPREDNISOLONE SOD SUCC 125 MG/2 ML VIAL IV ONE (15:45)
[2018-06-23 15:53] LABS: CHLORIDE 121 mEq/L (98-107)
[2018-06-23 16:02] LABS: HEMOGLOBIN. 7.6 g/dL (12.0-16.0); MEAN CORPUSCULAR HEMOGLOBIN 19.8 pg (28.0-32.0); PLATELET 228 x1000/uL (130-400); RED BLOOD CELL COUNT 3.87 mill/uL (4.2-5.4); RED CELL DISTRIBUTION WIDTH 20.3 % (11.6-14.6)
[2018-06-23 16:59] LABS: PLATELET ESTIMATE NORMAL
[2018-06-23 19:20] LABS: CLARITY URINE CLEAR (CLEAR); COLOR URINE YELLOW (YELLOW); KETONES URINE NEGATIVE (NEGATIVE); LEUKOCYTE ESTERASE URINE NEGATIVE (NEGATIVE); NITRITE URINE NEGATIVE (NEGATIVE); OCCULT BLOOD URINE 1+ (NEGATIVE); PROTEIN URINE 4+ (NEGATIVE); SPECIFIC GRAVITY URINE 1.016 (1.005-1.030); UROBILINOGEN URINE 0.2 E.U./dL (0.2-1.0)
[2018-06-23] MEDS ORDERED: SODIUM CHLORIDE 0.9% 1,000 ML IV ONE (20:15)
[2018-06-23 23:00] VITALS: BP 182/85
[2018-06-24] MEDS ORDERED: ONDANSETRON HCL 4MG/2ML VIAL IV PRN
[2018-06-24] MEDS ORDERED: ONDANSETRON 4MG ODT PO PRN (00:15)
[2018-06-24] MEDS: HYDRALAZINE HCL 25MG TABLET PO SCH ×4 (00:38→21:44)
[2018-06-24] MEDS: DIPHENHYDRAMINE 25MG CAPSULE PO PRN ×2 (00:38→17:01)
[2018-06-24] MEDS: HYDROCODONE/ACETAMINOPHEN 5/325MG TABLET PO PRN ×3 (00:39→14:09)
[2018-06-24 04:00] VITALS: BP 185/75
[2018-06-24] MEDS: HEPARIN 5000 UNITS/ML VIAL SUBCUT SCH ×3 (06:03→21:44)
[2018-06-24 08:00] VITALS: BP 147/69
[2018-06-24 12:00] VITALS: BP 126/72
[2018-06-24 16:00] VITALS: BP 158/58
[2018-06-24 17:34] LABS: CHLORIDE 116 mEq/L (98-107)
[2018-06-24 17:37] LABS: HEMATOCRIT. 25.5 % (36.0-48.0); HEMOGLOBIN. 8.1 g/dL (12.0-16.0); MEAN CORPUSCULAR HEMOGLOBIN 19.5 pg (28.0-32.0); MEAN CORPUSCULAR VOLUME 61.7 fL (81.0-99.0); MEAN PLATELET VOLUME 10.5 fl (7.4-10.4); PLATELET 252 x1000/uL (130-400); RED BLOOD CELL COUNT 4.14 mill/uL (4.2-5.4); RED CELL DISTRIBUTION WIDTH 20.4 % (11.6-14.6)
[2018-06-24 20:00] VITALS: BP 136/50
[2018-06-24 21:54] LABS: PLATELET ESTIMATE NORMAL
[2018-06-24] MEDS ORDERED: DEXTROSE 50% WATER 50ML SYRINGE IV PRN (23:30)
[2018-06-25 00:02] VITALS: BP 132/76
[2018-06-25] MEDS: NIFEDIPINE XL 60MG TAB PO SCH ×2 (00:06→08:16)
[2018-06-25] MEDS: HYDROCODONE/ACETAMINOPHEN 5/325MG TABLET PO PRN ×4 (00:06→20:32)
[2018-06-25 04:00] VITALS: BP 136/58
[2018-06-25] MEDS: HYDRALAZINE HCL 25MG TABLET PO SCH ×5 (05:01→21:41)
[2018-06-25] MEDS: HEPARIN 5000 UNITS/ML VIAL SUBCUT SCH ×3 (06:00→21:41)
[2018-06-25] MEDS: GABAPENTIN 300MG CAPSULE PO SCH ×3 (06:12→21:42)
[2018-06-25 08:00] VITALS: BP 154/67
[2018-06-25] MEDS: BLOOD SUGAR DIAGNOSTIC STRIP TEST SCH ×4 (08:04→20:33)
[2018-06-25] MEDS: INSULIN LISPRO 100 UNITS/ML SUBCUT SCH ×4 (08:05→21:40)
[2018-06-25] MEDS: CITRIC ACID/SODIUM CITRATE SOLN 15ML UDC PO SCH ×3 (08:16→16:23)
[2018-06-25] MEDS: ASPIRIN 81MG TABLET PO SCH (08:16)
[2018-06-25] MEDS: GLIPIZIDE 5MG TABLET PO SCH (08:16)
[2018-06-25] MEDS: DIPHENHYDRAMINE 25MG CAPSULE PO PRN ×2 (08:17→20:32)
[2018-06-25 12:00] VITALS: BP 137/71
[2018-06-25 16:00] VITALS: BP 124/69
[2018-06-25 20:00] VITALS: BP 128/67
[2018-06-25] MEDS: ATORVASTATIN CALCIUM 20MG TABLET PO SCH (20:31)
[2018-06-26] VITALS: BP 126/68
[2018-06-26] MEDS: HYDROCODONE/ACETAMINOPHEN 5/325MG TABLET PO PRN ×3 (03:38→20:25)
[2018-06-26 04:00] VITALS: BP 114/45
[2018-06-26] MEDS: HYDRALAZINE HCL 25MG TABLET PO SCH ×3 (06:15→20:24)
[2018-06-26] MEDS: HEPARIN 5000 UNITS/ML VIAL SUBCUT SCH ×2 (06:15→14:00)
[2018-06-26] MEDS: GABAPENTIN 300MG CAPSULE PO SCH ×3 (06:15→20:24)
[2018-06-26 08:02] VITALS: BP 126/60
[2018-06-26] MEDS: INSULIN LISPRO 100 UNITS/ML SUBCUT SCH ×4 (08:10→20:23)
[2018-06-26] MEDS: BLOOD SUGAR DIAGNOSTIC STRIP TEST SCH ×4 (08:35→20:23)
[2018-06-26] MEDS: GLIPIZIDE 5MG TABLET PO SCH (09:19)
[2018-06-26] MEDS: ASPIRIN 81MG TABLET PO SCH (09:19)
[2018-06-26] MEDS: CITRIC ACID/SODIUM CITRATE SOLN 15ML UDC PO SCH ×3 (09:19→19:19)
[2018-06-26] MEDS: NIFEDIPINE XL 60MG TAB PO SCH (09:19)
[2018-06-26] MEDS: DIPHENHYDRAMINE 25MG CAPSULE PO PRN ×2 (09:19→20:18)
[2018-06-26 12:00] VITALS: BP 138/74
[2018-06-26 16:00] VITALS: BP 127/53
[2018-06-26 20:00] VITALS: BP 144/72
[2018-06-26] MEDS: ATORVASTATIN CALCIUM 20MG TABLET PO SCH (20:19)
[2018-06-27] VITALS: BP 125/78
[2018-06-27] MEDS ORDERED: METHYL SALICYLATE/MENTHOL CREAM 85GM TOP PRN
[2018-06-27] MEDS: HYDROCODONE/ACETAMINOPHEN 5/325MG TABLET PO PRN ×4 (01:15→21:52)
[2018-06-27] MEDS: DIPHENHYDRAMINE 25MG CAPSULE PO PRN (03:36)
[2018-06-27 04:00] VITALS: BP 123/60
[2018-06-27] MEDS: HYDRALAZINE HCL 25MG TABLET PO SCH ×3 (05:44→21:52)
[2018-06-27] MEDS: GABAPENTIN 300MG CAPSULE PO SCH ×3 (05:44→21:52)
[2018-06-27] MEDS: BLOOD SUGAR DIAGNOSTIC STRIP TEST SCH ×4 (05:48→21:50)
[2018-06-27 06:51] LABS: HEMOGLOBIN. 7.3 g/dL (12.0-16.0); MEAN CORPUSCULAR HEMOGLOBIN 19.4 pg (28.0-32.0); MEAN CORPUSCULAR VOLUME 61.4 fL (81.0-99.0); RED BLOOD CELL COUNT 3.75 mill/uL (4.2-5.4); RED CELL DISTRIBUTION WIDTH 20.3 % (11.6-14.6)
[2018-06-27 08:00] VITALS: BP 145/61
[2018-06-27] MEDS: INSULIN LISPRO 100 UNITS/ML SUBCUT SCH ×4 (08:10→21:00)
[2018-06-27] MEDS: OMEPRAZOLE 20MG CAPSULE EXTENDED RELEASE PO SCH (08:52)
[2018-06-27] MEDS: ASPIRIN 81MG TABLET PO SCH (08:52)
[2018-06-27] MEDS: GLIPIZIDE 5MG TABLET PO SCH (08:53)
[2018-06-27] MEDS: NIFEDIPINE XL 60MG TAB PO SCH (08:53)
[2018-06-27] MEDS: CITRIC ACID/SODIUM CITRATE SOLN 15ML UDC PO SCH ×3 (09:00→17:50)
[2018-06-27 12:00] VITALS: BP 137/71
[2018-06-27 15:27] LABS: MEAN PLATELET VOLUME 9.7 fl (7.4-10.4); PLATELET 211 x1000/uL (130-400)
[2018-06-27 15:29] LABS: PLATELET ESTIMATE NORMAL
[2018-06-27 16:00] VITALS: BP 130/58
[2018-06-27 20:00] VITALS: BP 142/70
[2018-06-27] MEDS: ATORVASTATIN CALCIUM 20MG TABLET PO SCH (21:52)
[2018-06-28 04:00] VITALS: BP 145/80
[2018-06-28] MEDS: GABAPENTIN 300MG CAPSULE PO SCH ×3 (05:59→21:26)
[2018-06-28] MEDS: HYDRALAZINE HCL 25MG TABLET PO SCH ×3 (05:59→21:26)
[2018-06-28] MEDS: HYDROCODONE/ACETAMINOPHEN 5/325MG TABLET PO PRN ×3 (06:00→21:27)
[2018-06-28 06:40] LABS: BASOPHILS % 0.8 % (0.0-2.0); EOSINOPHILS % 7.1 % (0.0-5.0); HEMATOCRIT. 23.2 % (36.0-48.0); HEMOGLOBIN. 7.4 g/dL (12.0-16.0); LYMPHOCYTES % 42.3 % (20.0-50.0); MEAN CORPUSCULAR HEMOGLOBIN 19.7 pg (28.0-32.0); MEAN CORPUSCULAR VOLUME 61.3 fL (81.0-99.0); NEUTROPHILS % 43.8 % (40.0-76.0); RED BLOOD CELL COUNT 3.78 mill/uL (4.2-5.4); RED CELL DISTRIBUTION WIDTH 20.1 % (11.6-14.6)
[2018-06-28] MEDS: BLOOD SUGAR DIAGNOSTIC STRIP TEST SCH ×4 (07:29→21:27)
[2018-06-28] MEDS: INSULIN LISPRO 100 UNITS/ML SUBCUT SCH ×4 (07:29→21:25)
[2018-06-28 07:35] LABS: MEAN PLATELET VOLUME 11.7 fl (7.4-10.4); PLATELET 263 x1000/uL (130-400)
[2018-06-28 08:00] VITALS: BP 130/54
[2018-06-28] MEDS: GLIPIZIDE 5MG TABLET PO SCH (08:34)
[2018-06-28] MEDS: NIFEDIPINE XL 60MG TAB PO SCH (08:34)
[2018-06-28] MEDS: ASPIRIN 81MG TABLET PO SCH (08:34)
[2018-06-28] MEDS: OMEPRAZOLE 20MG CAPSULE EXTENDED RELEASE PO SCH (08:34)
[2018-06-28] MEDS: CITRIC ACID/SODIUM CITRATE SOLN 15ML UDC PO SCH ×3 (08:34→16:16)
[2018-06-28 12:00] VITALS: BP 157/79
[2018-06-28] MEDS: DIPHENHYDRAMINE 25MG CAPSULE PO PRN ×2 (12:30→21:26)
[2018-06-28 16:00] VITALS: BP 142/72
[2018-06-28 20:00] VITALS: BP 154/67
[2018-06-28] MEDS: ATORVASTATIN CALCIUM 20MG TABLET PO SCH (21:25)
[2018-06-29 06:30] VITALS: BP 151/75
[2018-06-29] MEDS: DIPHENHYDRAMINE 25MG CAPSULE PO PRN ×3 (06:41→22:20)
[2018-06-29] MEDS: GABAPENTIN 300MG CAPSULE PO SCH ×3 (06:41→22:07)
[2018-06-29] MEDS: HYDRALAZINE HCL 25MG TABLET PO SCH ×3 (06:42→22:20)
[2018-06-29] MEDS: BLOOD SUGAR DIAGNOSTIC STRIP TEST SCH ×4 (06:43→21:29)
[2018-06-29 08:00] VITALS: BP 129/85
[2018-06-29] MEDS: INSULIN LISPRO 100 UNITS/ML SUBCUT SCH ×4 (08:10→21:00)
[2018-06-29] MEDS: NIFEDIPINE XL 60MG TAB PO SCH (10:25)
[2018-06-29] MEDS: CITRIC ACID/SODIUM CITRATE SOLN 15ML UDC PO SCH ×3 (10:25→17:49)
[2018-06-29] MEDS: ASPIRIN 81MG TABLET PO SCH (10:26)
[2018-06-29] MEDS: GLIPIZIDE 5MG TABLET PO SCH (10:26)
[2018-06-29] MEDS: FAMOTIDINE 20MG TABLET PO SCH (10:26)
[2018-06-29 12:00] VITALS: BP 143/50
[2018-06-29 16:00] VITALS: BP 158/74
[2018-06-29] MEDS: HYDROCODONE/ACETAMINOPHEN 5/325MG TABLET PO PRN ×2 (16:12→22:15)
[2018-06-29 20:00] VITALS: BP 129/73
[2018-06-29] MEDS: ATORVASTATIN CALCIUM 20MG TABLET PO SCH ×2 (21:18→22:20)
[2018-06-29 22:28] VITALS: BP 129/73
[2018-06-30] VITALS (7 sets, daily range): BP systolic 135–209; BP diastolic 51–102
[2018-06-30] MEDS: HYDROCODONE/ACETAMINOPHEN 5/325MG TABLET PO PRN ×4 (03:21→22:16)
[2018-06-30] MEDS: GLIPIZIDE 5MG TABLET PO SCH (07:17)
[2018-06-30] MEDS: GABAPENTIN 300MG CAPSULE PO SCH ×3 (07:17→22:14)
[2018-06-30] MEDS: HYDRALAZINE HCL 25MG TABLET PO SCH ×3 (07:18→22:15)
[2018-06-30] MEDS: BLOOD SUGAR DIAGNOSTIC STRIP TEST SCH ×4 (07:21→21:42)
[2018-06-30] MEDS: INSULIN LISPRO 100 UNITS/ML SUBCUT SCH ×4 (07:21→22:18)
[2018-06-30] MEDS: CITRIC ACID/SODIUM CITRATE SOLN 15ML UDC PO SCH ×3 (08:54→18:04)
[2018-06-30] MEDS: ASPIRIN 81MG TABLET PO SCH (08:54)
[2018-06-30] MEDS: FAMOTIDINE 20MG TABLET PO SCH (08:54)
[2018-06-30] MEDS: NIFEDIPINE XL 60MG TAB PO SCH (08:54)
[2018-06-30] MEDS: DIPHENHYDRAMINE 25MG CAPSULE PO PRN ×2 (09:10→22:14)
[2018-07-01] VITALS: BP 141/78
[2018-07-01] MEDS: HYDROCODONE/ACETAMINOPHEN 5/325MG TABLET PO PRN ×4 (02:18→22:04)
[2018-07-01 04:00] VITALS: BP 134/50
[2018-07-01] MEDS: GABAPENTIN 300MG CAPSULE PO SCH ×3 (06:43→21:21)
[2018-07-01] MEDS: HYDRALAZINE HCL 25MG TABLET PO SCH ×3 (06:43→21:21)
[2018-07-01] MEDS: BLOOD SUGAR DIAGNOSTIC STRIP TEST SCH ×4 (06:47→21:20)
[2018-07-01 08:00] VITALS: BP 127/64
[2018-07-01] MEDS: NIFEDIPINE XL 60MG TAB PO SCH (09:54)
[2018-07-01] MEDS: ASPIRIN 81MG TABLET PO SCH (09:54)
[2018-07-01] MEDS: GLIPIZIDE 5MG TABLET PO SCH (09:54)
[2018-07-01] MEDS: FAMOTIDINE 20MG TABLET PO SCH (09:55)
[2018-07-01] MEDS: CITRIC ACID/SODIUM CITRATE SOLN 15ML UDC PO SCH ×3 (09:55→17:59)
[2018-07-01] MEDS: INSULIN LISPRO 100 UNITS/ML SUBCUT SCH ×4 (09:56→21:30)
[2018-07-01 12:00] VITALS: BP 113/73
[2018-07-01 16:00] VITALS: BP 116/43
[2018-07-01 20:00] VITALS: BP 129/75
[2018-07-01] MEDS: ATORVASTATIN CALCIUM 20MG TABLET PO SCH (21:21)
[2018-07-02] VITALS: BP 118/72
[2018-07-02] MEDS: DIPHENHYDRAMINE 25MG CAPSULE PO PRN ×3 (02:20→22:20)
[2018-07-02] MEDS: HYDROCODONE/ACETAMINOPHEN 5/325MG TABLET PO PRN ×5 (02:21→22:19)
[2018-07-02] MEDS: GABAPENTIN 300MG CAPSULE PO SCH ×3 (06:29→22:00)
[2018-07-02] MEDS: HYDRALAZINE HCL 25MG TABLET PO SCH ×3 (06:29→21:59)
[2018-07-02] MEDS: BLOOD SUGAR DIAGNOSTIC STRIP TEST SCH ×4 (06:40→21:00)
[2018-07-02 08:00] VITALS: BP 150/84
[2018-07-02] MEDS: INSULIN LISPRO 100 UNITS/ML SUBCUT SCH ×4 (08:10→17:56)
[2018-07-02] MEDS: NIFEDIPINE XL 60MG TAB PO SCH (08:53)
[2018-07-02] MEDS: CITRIC ACID/SODIUM CITRATE SOLN 15ML UDC PO SCH ×3 (08:53→17:59)
[2018-07-02] MEDS: FAMOTIDINE 20MG TABLET PO SCH (08:53)
[2018-07-02] MEDS: GLIPIZIDE 5MG TABLET PO SCH (08:53)
[2018-07-02] MEDS: ASPIRIN 81MG TABLET PO SCH (08:53)
[2018-07-02 12:00] VITALS: BP 152/74
[2018-07-02 16:00] VITALS: BP 152/74
[2018-07-02 17:50] VITALS: BP 148/106
[2018-07-02 20:00] VITALS: BP 120/73
[2018-07-02] MEDS: ATORVASTATIN CALCIUM 20MG TABLET PO SCH (21:58)
[2018-07-03] VITALS: BP 118/72
[2018-07-03 04:00] VITALS: BP 123/82
[2018-07-03] MEDS: HYDROCODONE/ACETAMINOPHEN 5/325MG TABLET PO PRN ×2 (06:12→13:05)
[2018-07-03] MEDS: HYDRALAZINE HCL 25MG TABLET PO SCH ×3 (06:44→21:30)
[2018-07-03] MEDS: GABAPENTIN 300MG CAPSULE PO SCH ×3 (06:44→21:22)
[2018-07-03] MEDS: BLOOD SUGAR DIAGNOSTIC STRIP TEST SCH ×4 (06:48→21:34)
[2018-07-03] MEDS: FAMOTIDINE 20MG TABLET PO SCH (09:08)
[2018-07-03] MEDS: ASPIRIN 81MG TABLET PO SCH (09:08)
[2018-07-03] MEDS: GLIPIZIDE 5MG TABLET PO SCH (09:08)
[2018-07-03] MEDS: NIFEDIPINE XL 60MG TAB PO SCH (09:08)
[2018-07-03] MEDS: CITRIC ACID/SODIUM CITRATE SOLN 15ML UDC PO SCH ×3 (09:09→18:10)
[2018-07-03 12:00] VITALS: BP 151/62
[2018-07-03] MEDS: DIPHENHYDRAMINE 25MG CAPSULE PO PRN (13:04)
[2018-07-03] MEDS: INSULIN LISPRO 100 UNITS/ML SUBCUT SCH ×3 (13:10→21:33)
[2018-07-03 16:00] VITALS: BP 150/64
[2018-07-03] MEDS: ATORVASTATIN CALCIUM 20MG TABLET PO SCH (21:22)
[2018-07-03 23:50] VITALS: BP 140/63
[2018-07-04] MEDS: HYDROCODONE/ACETAMINOPHEN 5/325MG TABLET PO PRN ×4 (00:43→20:19)
[2018-07-04] MEDS: DIPHENHYDRAMINE 25MG CAPSULE PO PRN ×3 (00:43→18:18)
[2018-07-04 04:00] VITALS: BP 129/98
[2018-07-04] MEDS: HYDRALAZINE HCL 25MG TABLET PO SCH ×3 (05:32→20:19)
[2018-07-04] MEDS: GABAPENTIN 300MG CAPSULE PO SCH ×3 (05:32→20:19)
[2018-07-04] MEDS: BLOOD SUGAR DIAGNOSTIC STRIP TEST SCH ×4 (07:40→20:19)
[2018-07-04 08:00] VITALS: BP 145/65
[2018-07-04] MEDS: INSULIN LISPRO 100 UNITS/ML SUBCUT SCH ×4 (08:10→20:29)
[2018-07-04] MEDS: FAMOTIDINE 20MG TABLET PO SCH (08:59)
[2018-07-04] MEDS: CITRIC ACID/SODIUM CITRATE SOLN 15ML UDC PO SCH ×3 (08:59→18:18)
[2018-07-04] MEDS: NIFEDIPINE XL 60MG TAB PO SCH (09:00)
[2018-07-04] MEDS: GLIPIZIDE 5MG TABLET PO SCH (09:00)
[2018-07-04] MEDS: ASPIRIN 81MG TABLET PO SCH (09:00)
[2018-07-04 12:00] VITALS: BP 152/68
[2018-07-04 16:00] VITALS: BP 156/76
[2018-07-04 20:00] VITALS: BP 148/72
[2018-07-04] MEDS: ATORVASTATIN CALCIUM 20MG TABLET PO SCH (20:20)
[2018-07-05] VITALS: BP 133/58
[2018-07-05 04:00] VITALS: BP_SYST 129; BP_SYST 136; BP_DIAS 46; BP_DIAS 64
[2018-07-05] MEDS: HYDRALAZINE HCL 25MG TABLET PO SCH ×3 (05:14→22:15)
[2018-07-05] MEDS: GABAPENTIN 300MG CAPSULE PO SCH ×3 (05:14→22:16)
[2018-07-05] MEDS: BLOOD SUGAR DIAGNOSTIC STRIP TEST SCH ×4 (05:38→21:00)
[2018-07-05] MEDS: INSULIN LISPRO 100 UNITS/ML SUBCUT SCH ×4 (08:10→22:19)
[2018-07-05 08:19] VITALS: BP 131/71
[2018-07-05] MEDS: NIFEDIPINE XL 60MG TAB PO SCH (08:52)
[2018-07-05] MEDS: GLIPIZIDE 5MG TABLET PO SCH (08:52)
[2018-07-05] MEDS: ASPIRIN 81MG TABLET PO SCH (08:52)
[2018-07-05] MEDS: FAMOTIDINE 20MG TABLET PO SCH (08:52)
[2018-07-05] MEDS: CITRIC ACID/SODIUM CITRATE SOLN 15ML UDC PO SCH ×3 (08:56→16:56)
[2018-07-05] MEDS: DIPHENHYDRAMINE 25MG CAPSULE PO PRN (08:57)
[2018-07-05] MEDS: HYDROCODONE/ACETAMINOPHEN 5/325MG TABLET PO PRN ×3 (08:59→22:18)
[2018-07-05 12:00] VITALS: BP 159/83
[2018-07-05 16:00] VITALS: BP 152/71
[2018-07-05 20:00] VITALS: BP 123/54
[2018-07-05] MEDS: ATORVASTATIN CALCIUM 20MG TABLET PO SCH (22:16)
[2018-07-06] VITALS: BP 126/62
[2018-07-06] MEDS: HYDROCODONE/ACETAMINOPHEN 5/325MG TABLET PO PRN ×4 (02:21→20:48)
[2018-07-06] MEDS: DIPHENHYDRAMINE 25MG CAPSULE PO PRN ×2 (02:21→20:45)
[2018-07-06 04:41] VITALS: BP 125/60
[2018-07-06] MEDS: GABAPENTIN 300MG CAPSULE PO SCH ×3 (05:31→21:25)
[2018-07-06] MEDS: HYDRALAZINE HCL 25MG TABLET PO SCH ×3 (05:32→21:25)
[2018-07-06] MEDS: BLOOD SUGAR DIAGNOSTIC STRIP TEST SCH ×4 (07:40→17:09)
[2018-07-06 08:00] VITALS: BP 152/71
[2018-07-06] MEDS: INSULIN LISPRO 100 UNITS/ML SUBCUT SCH ×4 (08:10→20:29)
[2018-07-06] MEDS: CITRIC ACID/SODIUM CITRATE SOLN 15ML UDC PO SCH ×3 (09:00→16:43)
[2018-07-06] MEDS: ASPIRIN 81MG TABLET PO SCH (09:00)
[2018-07-06] MEDS: GLIPIZIDE 5MG TABLET PO SCH (09:01)
[2018-07-06] MEDS: FAMOTIDINE 20MG TABLET PO SCH (09:02)
[2018-07-06] MEDS: NIFEDIPINE XL 60MG TAB PO SCH (09:02)
[2018-07-06 12:00] VITALS: BP 136/63
[2018-07-06 16:00] VITALS: BP 145/89
[2018-07-06 19:56] VITALS: BP 124/69
[2018-07-06] MEDS: ATORVASTATIN CALCIUM 20MG TABLET PO SCH (20:24)
[2018-07-07 00:32] VITALS: BP 128/74
[2018-07-07] MEDS: DIPHENHYDRAMINE 25MG CAPSULE PO PRN ×3 (03:11→21:11)
[2018-07-07] MEDS: HYDROCODONE/ACETAMINOPHEN 5/325MG TABLET PO PRN ×5 (03:11→21:11)
[2018-07-07 04:00] VITALS: BP 124/88
[2018-07-07] MEDS: GABAPENTIN 300MG CAPSULE PO SCH ×3 (05:38→21:12)
[2018-07-07] MEDS: HYDRALAZINE HCL 25MG TABLET PO SCH ×3 (05:38→21:12)
[2018-07-07] MEDS: BLOOD SUGAR DIAGNOSTIC STRIP TEST SCH ×4 (06:43→21:10)
[2018-07-07] MEDS: INSULIN LISPRO 100 UNITS/ML SUBCUT SCH ×4 (07:19→21:00)
[2018-07-07 08:00] VITALS: BP 142/71
[2018-07-07] MEDS: GLIPIZIDE 5MG TABLET PO SCH (08:12)
[2018-07-07] MEDS: CITRIC ACID/SODIUM CITRATE SOLN 15ML UDC PO SCH ×3 (08:12→16:42)
[2018-07-07] MEDS: NIFEDIPINE XL 60MG TAB PO SCH (08:13)
[2018-07-07] MEDS: ASPIRIN 81MG TABLET PO SCH (08:13)
[2018-07-07] MEDS: FAMOTIDINE 20MG TABLET PO SCH (08:13)
[2018-07-07 12:00] VITALS: BP 126/63
[2018-07-07 16:01] VITALS: BP 143/83
[2018-07-07 20:00] VITALS: BP 153/69
[2018-07-07] MEDS: ATORVASTATIN CALCIUM 20MG TABLET PO SCH (21:11)
[2018-07-08] VITALS: BP 136/68
[2018-07-08] MEDS: HYDROCODONE/ACETAMINOPHEN 5/325MG TABLET PO PRN ×4 (01:07→19:57)
[2018-07-08 04:00] VITALS: BP 143/68
[2018-07-08] MEDS: DIPHENHYDRAMINE 25MG CAPSULE PO PRN ×2 (04:32→19:57)
[2018-07-08] MEDS: HYDRALAZINE HCL 25MG TABLET PO SCH ×3 (04:56→19:57)
[2018-07-08] MEDS: GABAPENTIN 300MG CAPSULE PO SCH ×3 (04:56→19:57)
[2018-07-08] MEDS: BLOOD SUGAR DIAGNOSTIC STRIP TEST SCH ×4 (05:47→21:59)
[2018-07-08 08:00] VITALS: BP 136/54
[2018-07-08] MEDS: INSULIN LISPRO 100 UNITS/ML SUBCUT SCH ×4 (08:10→21:00)
[2018-07-08] MEDS: FAMOTIDINE 20MG TABLET PO SCH (08:52)
[2018-07-08] MEDS: GLIPIZIDE 5MG TABLET PO SCH (08:52)
[2018-07-08] MEDS: ASPIRIN 81MG TABLET PO SCH (08:52)
[2018-07-08] MEDS: CITRIC ACID/SODIUM CITRATE SOLN 15ML UDC PO SCH ×3 (08:52→16:53)
[2018-07-08] MEDS: NIFEDIPINE XL 60MG TAB PO SCH (08:55)
[2018-07-08 12:00] VITALS: BP 151/79
[2018-07-08 15:53] LABS: BASOPHILS % 0.9 % (0.0-2.0); EOSINOPHILS % 10.4 % (0.0-5.0); HEMATOCRIT. 22.7 % (36.0-48.0); HEMOGLOBIN. 7.1 g/dL (12.0-16.0); LYMPHOCYTES % 39.5 % (20.0-50.0); MEAN CORPUSCULAR HEMOGLOBIN 19.5 pg (28.0-32.0); MEAN CORPUSCULAR VOLUME 61.9 fL (81.0-99.0); MONOCYTES % 6.8 % (2.0-8.0); NEUTROPHILS % 42.4 % (40.0-76.0); RED BLOOD CELL COUNT 3.66 mill/uL (4.2-5.4); RED CELL DISTRIBUTION WIDTH 17.8 % (11.6-14.6)
[2018-07-08 15:56] VITALS: BP 122/58
[2018-07-08] MEDS: SODIUM CHLORIDE 0.45% 1,000 ML IV SCH (16:30)
[2018-07-08 16:43] LABS: MEAN PLATELET VOLUME 9.7 fl (7.4-10.4); PLATELET 214 x1000/uL (130-400)
[2018-07-08] MEDS: ATORVASTATIN CALCIUM 20MG TABLET PO SCH (19:57)
[2018-07-08 20:00] VITALS: BP 105/69
[2018-07-09] VITALS: BP 140/66
[2018-07-09] MEDS: HYDROCODONE/ACETAMINOPHEN 5/325MG TABLET PO PRN ×3 (00:21→22:54)
[2018-07-09 04:00] VITALS: BP 112/61
[2018-07-09] MEDS: HYDRALAZINE HCL 25MG TABLET PO SCH ×3 (04:35→21:23)
[2018-07-09] MEDS: SODIUM CHLORIDE 0.45% 1,000 ML IV SCH (05:50)
[2018-07-09] MEDS: BLOOD SUGAR DIAGNOSTIC STRIP TEST SCH ×4 (05:57→21:24)
[2018-07-09] MEDS: GABAPENTIN 300MG CAPSULE PO SCH ×3 (05:58→21:23)
[2018-07-09] MEDS: INSULIN LISPRO 100 UNITS/ML SUBCUT SCH ×4 (08:10→21:22)
[2018-07-09 08:27] VITALS: BP 143/80
[2018-07-09] MEDS: GLIPIZIDE 5MG TABLET PO SCH (08:42)
[2018-07-09] MEDS: CITRIC ACID/SODIUM CITRATE SOLN 15ML UDC PO SCH ×3 (08:42→17:22)
[2018-07-09] MEDS: FAMOTIDINE 20MG TABLET PO SCH (08:42)
[2018-07-09] MEDS: NIFEDIPINE XL 60MG TAB PO SCH (08:42)
[2018-07-09] MEDS: ASPIRIN 81MG TABLET PO SCH (08:42)
[2018-07-09 12:13] VITALS: BP 138/85
[2018-07-09 16:00] VITALS: BP 156/97
[2018-07-09] MEDS: SODIUM POLYSTYRENE SULFONATE 15 G/60 ML BOT PO NR ×2 (18:00→19:05)
[2018-07-09 20:09] VITALS: BP 124/68
[2018-07-09] MEDS: ATORVASTATIN CALCIUM 20MG TABLET PO SCH (21:23)
[2018-07-09] MEDS: EPOETIN ALFA 4000UNITS/ML VIAL SUBCUT SCH (21:23)
[2018-07-09] MEDS: DIPHENHYDRAMINE 25MG CAPSULE PO PRN (22:53)
[2018-07-10] VITALS (16 sets, daily range): BP systolic 94–167; BP diastolic 48–91
[2018-07-10] MEDS: GABAPENTIN 300MG CAPSULE PO SCH ×3 (05:23→22:24)
[2018-07-10] MEDS: HYDRALAZINE HCL 25MG TABLET PO SCH ×3 (05:24→22:24)
[2018-07-10] MEDS: HYDROCODONE/ACETAMINOPHEN 5/325MG TABLET PO PRN ×3 (05:25→22:28)
[2018-07-10] MEDS: BLOOD SUGAR DIAGNOSTIC STRIP TEST SCH ×4 (07:40→21:00)
[2018-07-10] MEDS: INSULIN LISPRO 100 UNITS/ML SUBCUT SCH ×4 (08:10→22:36)
[2018-07-10] MEDS: GLIPIZIDE 5MG TABLET PO SCH (08:45)
[2018-07-10] MEDS: NIFEDIPINE XL 60MG TAB PO SCH (08:45)
[2018-07-10] MEDS: ASPIRIN 81MG TABLET PO SCH (08:45)
[2018-07-10] MEDS: CITRIC ACID/SODIUM CITRATE SOLN 15ML UDC PO SCH ×3 (08:45→16:58)
[2018-07-10] MEDS: FAMOTIDINE 20MG TABLET PO SCH (08:45)
[2018-07-10 10:58] LABS: BASOPHILS % 1.1 % (0.0-2.0); EOSINOPHILS % 8.9 % (0.0-5.0); HEMATOCRIT. 23.1 % (36.0-48.0); HEMOGLOBIN. 7.4 g/dL (12.0-16.0); LYMPHOCYTES % 40.2 % (20.0-50.0); MEAN CORPUSCULAR HEMOGLOBIN 19.7 pg (28.0-32.0); MEAN PLATELET VOLUME 10.2 fl (7.4-10.4); MONOCYTES % 6.6 % (2.0-8.0); NEUTROPHILS % 43.2 % (40.0-76.0); PLATELET 257 x1000/uL (130-400); RED BLOOD CELL COUNT 3.73 mill/uL (4.2-5.4); RED CELL DISTRIBUTION WIDTH 17.9 % (11.6-14.6)
[2018-07-10 11:03] LABS: MEAN CORPUSCULAR VOLUME 61.9 fL (81.0-99.0)
[2018-07-10 11:06] LABS: PHOSPHORUS 5.9 mg/dL (2.5-4.9)
[2018-07-10 11:21] LABS: INR 1.1; PARTIAL THROMBOPLASTIN TIME 27.8 sec (23.4-31.0); PROTHROMBIN TIME 10.7 sec (9.1-11.1)
[2018-07-10] MEDS: DEXT 5%/0.45% NACL 1000ML 1,000 ML IV SCH (12:47)
[2018-07-10] MEDS ORDERED: CEFAZOLIN 1000MG PREMIX 50 ML IV ONE ×2 (13:00→14:32)
[2018-07-10] MEDS ORDERED: SODIUM BICARBONATE 4% (2.4MEQ) 5ML VIAL IV ONE (14:31)
[2018-07-10] MEDS ORDERED: LIDOCAINE HCL 1% 20ML VIAL (Pyxis) INJ ONE (14:31)
[2018-07-10] MEDS ORDERED: HEPARIN 1000 UNITS/ML 10ML ONE (14:31)
[2018-07-10] MEDS ORDERED: FENTANYL CITRATE/PF 50MCG/ML 2ML VIAL ONE (14:32)
[2018-07-10] MEDS ORDERED: FENTANYL CITRATE/PF 50MCG/ML 2ML VIAL IV ONE (15:00)
[2018-07-10] MEDS: ATORVASTATIN CALCIUM 20MG TABLET PO SCH (22:23)
[2018-07-10] MEDS: DIPHENHYDRAMINE 25MG CAPSULE PO PRN (22:25)
[2018-07-11] VITALS (8 sets, daily range): BP systolic 107–153; BP diastolic 47–87
[2018-07-11] MEDS: HYDROCODONE/ACETAMINOPHEN 5/325MG TABLET PO PRN ×4 (03:28→21:38)
[2018-07-11] MEDS: DEXT 5%/0.45% NACL 1000ML 1,000 ML IV SCH (05:25)
[2018-07-11] MEDS: GABAPENTIN 300MG CAPSULE PO SCH ×3 (05:34→21:25)
[2018-07-11] MEDS: HYDRALAZINE HCL 25MG TABLET PO SCH ×3 (05:35→21:23)
[2018-07-11] MEDS: BLOOD SUGAR DIAGNOSTIC STRIP TEST SCH ×4 (06:20→21:22)
[2018-07-11] MEDS: INSULIN LISPRO 100 UNITS/ML SUBCUT SCH ×4 (06:20→21:19)
[2018-07-11 07:22] LABS: EOSINOPHILS % 8.6 % (0.0-5.0); HEMATOCRIT. 22.5 % (36.0-48.0); HEMOGLOBIN. 7.1 g/dL (12.0-16.0); LYMPHOCYTES % 35.9 % (20.0-50.0); MEAN CORPUSCULAR HEMOGLOBIN 19.5 pg (28.0-32.0); MEAN CORPUSCULAR VOLUME 62.1 fL (81.0-99.0); MONOCYTES % 6.3 % (2.0-8.0); NEUTROPHILS % 48.2 % (40.0-76.0); RED BLOOD CELL COUNT 3.62 mill/uL (4.2-5.4); RED CELL DISTRIBUTION WIDTH 18.1 % (11.6-14.6)
[2018-07-11 08:31] LABS: PHOSPHORUS 6.1 mg/dL (2.5-4.9)
[2018-07-11] MEDS: GLIPIZIDE 5MG TABLET PO SCH (09:12)
[2018-07-11] MEDS: ASPIRIN 81MG TABLET PO SCH (09:12)
[2018-07-11] MEDS: NIFEDIPINE XL 60MG TAB PO SCH (09:12)
[2018-07-11] MEDS: FAMOTIDINE 20MG TABLET PO SCH (09:12)
[2018-07-11] MEDS: CITRIC ACID/SODIUM CITRATE SOLN 15ML UDC PO SCH ×3 (09:13→17:00)
[2018-07-11 13:51] LABS: MEAN PLATELET VOLUME 11.2 fl (7.4-10.4); PLATELET 255 x1000/uL (130-400)
[2018-07-11] MEDS: DIPHENHYDRAMINE 25MG CAPSULE PO PRN ×2 (15:44→21:36)
[2018-07-11] MEDS: EPOETIN ALFA 4000UNITS/ML VIAL SUBCUT SCH (21:17)
[2018-07-11] MEDS: ATORVASTATIN CALCIUM 20MG TABLET PO SCH (21:22)
[2018-07-12] VITALS: BP 121/91
[2018-07-12] MEDS ORDERED: IOHEXOL-350 100 ML BOTTLE ONE (02:34)
[2018-07-12 04:00] VITALS: BP 146/80
[2018-07-12] MEDS: HYDRALAZINE HCL 25MG TABLET PO SCH ×3 (06:40→20:28)
[2018-07-12] MEDS: GABAPENTIN 300MG CAPSULE PO SCH ×3 (06:40→20:29)
[2018-07-12] MEDS: HYDROCODONE/ACETAMINOPHEN 5/325MG TABLET PO PRN ×3 (06:56→20:30)
[2018-07-12] MEDS: BLOOD SUGAR DIAGNOSTIC STRIP TEST SCH ×4 (07:40→20:37)
[2018-07-12 08:00] VITALS: BP 114/58
[2018-07-12 08:17] LABS: BASOPHILS % 0.7 % (0.0-2.0); EOSINOPHILS % 7.9 % (0.0-5.0); HEMOGLOBIN. 8.2 g/dL (12.0-16.0); LYMPHOCYTES % 39.5 % (20.0-50.0); MEAN CORPUSCULAR HEMOGLOBIN 20.6 pg (28.0-32.0); MEAN CORPUSCULAR VOLUME 65.2 fL (81.0-99.0); MEAN PLATELET VOLUME 11.1 fl (7.4-10.4); MONOCYTES % 8.2 % (2.0-8.0); NEUTROPHILS % 43.7 % (40.0-76.0); PLATELET 254 x1000/uL (130-400); RED BLOOD CELL COUNT 3.98 mill/uL (4.2-5.4); RED CELL DISTRIBUTION WIDTH 20.9 % (11.6-14.6)
[2018-07-12 08:33] LABS: PHOSPHORUS 5.1 mg/dL (2.5-4.9)
[2018-07-12] MEDS: FAMOTIDINE 20MG TABLET PO SCH (09:00)
[2018-07-12] MEDS: NIFEDIPINE XL 60MG TAB PO SCH (09:00)
[2018-07-12] MEDS: GLIPIZIDE 5MG TABLET PO SCH (09:01)
[2018-07-12] MEDS: ASPIRIN 81MG TABLET PO SCH (09:01)
[2018-07-12] MEDS: INSULIN LISPRO 100 UNITS/ML SUBCUT SCH ×4 (09:10→20:37)
[2018-07-12 10:09] LABS: HEPATITIS B SURFACE AB < 3.1 mIU/mL
[2018-07-12 10:18] LABS: HEPATITIS B SURFACE ANTIGEN NEGATIVE
[2018-07-12 10:47] LABS: HEPATITIS B CORE AB IGM NEGATIVE
[2018-07-12 12:00] VITALS: BP 144/77
[2018-07-12 16:00] VITALS: BP 118/67
[2018-07-12 20:00] VITALS: BP 175/84
[2018-07-12] MEDS: DIPHENHYDRAMINE 25MG CAPSULE PO PRN (20:29)
[2018-07-12] MEDS: ATORVASTATIN CALCIUM 20MG TABLET PO SCH (20:29)
[2018-07-13] VITALS: BP 145/67
[2018-07-13] MEDS: HYDROCODONE/ACETAMINOPHEN 5/325MG TABLET PO PRN ×5 (01:43→22:20)
[2018-07-13 04:00] VITALS: BP 149/77
[2018-07-13] MEDS: HYDRALAZINE HCL 25MG TABLET PO SCH ×3 (04:47→21:36)
[2018-07-13] MEDS: GABAPENTIN 300MG CAPSULE PO SCH ×3 (04:47→21:36)
[2018-07-13] MEDS: BLOOD SUGAR DIAGNOSTIC STRIP TEST SCH ×4 (05:43→21:37)
[2018-07-13 06:15] LABS: BASOPHILS % 1.7 % (0.0-2.0); HEMATOCRIT. 26.8 % (36.0-48.0); HEMOGLOBIN. 8.6 g/dL (12.0-16.0); LYMPHOCYTES % 40.3 % (20.0-50.0); MEAN CORPUSCULAR HEMOGLOBIN 20.6 pg (28.0-32.0); MEAN CORPUSCULAR VOLUME 64.3 fL (81.0-99.0); MEAN PLATELET VOLUME 10.8 fl (7.4-10.4); MONOCYTES % 7.4 % (2.0-8.0); NEUTROPHILS % 42.6 % (40.0-76.0); PLATELET 271 x1000/uL (130-400); RED BLOOD CELL COUNT 4.16 mill/uL (4.2-5.4); RED CELL DISTRIBUTION WIDTH 19.3 % (11.6-14.6)
[2018-07-13 06:50] LABS: PHOSPHORUS 5.9 mg/dL (2.5-4.9)
[2018-07-13 08:00] VITALS: BP 138/54
[2018-07-13] MEDS: INSULIN LISPRO 100 UNITS/ML SUBCUT SCH ×4 (08:04→21:00)
[2018-07-13] MEDS: FAMOTIDINE 20MG TABLET PO SCH (09:10)
[2018-07-13] MEDS: ASPIRIN 81MG TABLET PO SCH (09:10)
[2018-07-13] MEDS: NIFEDIPINE XL 60MG TAB PO SCH (09:10)
[2018-07-13 12:01] VITALS: BP 131/51
[2018-07-13] MEDS: DIPHENHYDRAMINE 25MG CAPSULE PO PRN ×2 (13:47→22:20)
[2018-07-13 16:00] VITALS: BP 125/72
[2018-07-13 20:00] VITALS: BP 146/52
[2018-07-13] MEDS: ATORVASTATIN CALCIUM 20MG TABLET PO SCH (21:36)
[2018-07-13] MEDS: EPOETIN ALFA 4000UNITS/ML VIAL SUBCUT SCH (21:37)
[2018-07-14 03:30] VITALS: BP 132/86
[2018-07-14] MEDS: HYDROCODONE/ACETAMINOPHEN 5/325MG TABLET PO PRN ×4 (03:30→18:33)
[2018-07-14] MEDS: HYDRALAZINE HCL 25MG TABLET PO SCH ×3 (05:29→21:38)
[2018-07-14] MEDS: GABAPENTIN 300MG CAPSULE PO SCH ×3 (05:29→21:38)
[2018-07-14] MEDS: DIPHENHYDRAMINE 25MG CAPSULE PO PRN ×3 (05:32→23:37)
[2018-07-14] MEDS: BLOOD SUGAR DIAGNOSTIC STRIP TEST SCH ×4 (06:50→21:46)
[2018-07-14 08:00] VITALS: BP 146/70
[2018-07-14] MEDS: INSULIN LISPRO 100 UNITS/ML SUBCUT SCH ×4 (08:10→21:00)
[2018-07-14] MEDS: ASPIRIN 81MG TABLET PO SCH (08:35)
[2018-07-14] MEDS: NIFEDIPINE XL 60MG TAB PO SCH (08:35)
[2018-07-14] MEDS: FAMOTIDINE 20MG TABLET PO SCH (08:35)
[2018-07-14] MEDS: GLIPIZIDE 5MG TABLET PO SCH (08:36)
[2018-07-14 10:32] LABS: BASOPHILS % 0.7 % (0.0-2.0); EOSINOPHILS % 8.1 % (0.0-5.0); HEMATOCRIT. 24.9 % (36.0-48.0); HEMOGLOBIN. 7.9 g/dL (12.0-16.0); LYMPHOCYTES % 36.7 % (20.0-50.0); MEAN CORPUSCULAR HEMOGLOBIN 20.5 pg (28.0-32.0); MEAN CORPUSCULAR VOLUME 64.8 fL (81.0-99.0); MEAN PLATELET VOLUME 10.3 fl (7.4-10.4); MONOCYTES % 8.7 % (2.0-8.0); NEUTROPHILS % 45.8 % (40.0-76.0); PLATELET 236 x1000/uL (130-400); RED BLOOD CELL COUNT 3.84 mill/uL (4.2-5.4); RED CELL DISTRIBUTION WIDTH 18.8 % (11.6-14.6)
[2018-07-14 11:17] LABS: PHOSPHORUS 4.5 mg/dL (2.5-4.9)
[2018-07-14 12:00] VITALS: BP 107/49
[2018-07-14 16:00] VITALS: BP 135/91
[2018-07-14 20:00] VITALS: BP 153/79
[2018-07-14] MEDS: ATORVASTATIN CALCIUM 20MG TABLET PO SCH (21:38)
[2018-07-15] VITALS: BP 143/84
[2018-07-15 04:00] VITALS: BP 135/60
[2018-07-15] MEDS: GABAPENTIN 300MG CAPSULE PO SCH ×3 (06:00→21:42)
[2018-07-15] MEDS: HYDRALAZINE HCL 25MG TABLET PO SCH ×3 (06:00→21:42)
[2018-07-15] MEDS: GLIPIZIDE 5MG TABLET PO SCH (07:40)
[2018-07-15] MEDS: BLOOD SUGAR DIAGNOSTIC STRIP TEST SCH ×4 (07:40→21:42)
[2018-07-15] MEDS: INSULIN LISPRO 100 UNITS/ML SUBCUT SCH ×4 (07:46→21:51)
[2018-07-15 08:00] VITALS: BP 123/50
[2018-07-15] MEDS: FAMOTIDINE 20MG TABLET PO SCH (09:36)
[2018-07-15] MEDS: NIFEDIPINE XL 60MG TAB PO SCH (09:36)
[2018-07-15] MEDS: ASPIRIN 81MG TABLET PO SCH (09:36)
[2018-07-15] MEDS: DIPHENHYDRAMINE 25MG CAPSULE PO PRN ×2 (09:36→21:42)
[2018-07-15 12:00] VITALS: BP 161/86
[2018-07-15 12:29] LABS: BASOPHILS % 0.7 % (0.0-2.0); EOSINOPHILS % 9.7 % (0.0-5.0); HEMATOCRIT. 27.3 % (36.0-48.0); HEMOGLOBIN. 8.5 g/dL (12.0-16.0); LYMPHOCYTES % 31.6 % (20.0-50.0); MEAN CORPUSCULAR HEMOGLOBIN 20.4 pg (28.0-32.0); MEAN CORPUSCULAR VOLUME 65.3 fL (81.0-99.0); RED BLOOD CELL COUNT 4.18 mill/uL (4.2-5.4)
[2018-07-15 12:52] LABS: PHOSPHORUS 4.4 mg/dL (2.5-4.9)
[2018-07-15 13:00] LABS: PLATELET 263 x1000/uL (130-400)
[2018-07-15] MEDS: HYDROCODONE/ACETAMINOPHEN 5/325MG TABLET PO PRN ×2 (13:05→20:16)
[2018-07-15 16:00] VITALS: BP 126/52
[2018-07-15 20:00] VITALS: BP 152/80
[2018-07-15] MEDS: ATORVASTATIN CALCIUM 20MG TABLET PO SCH (20:15)
[2018-07-16] VITALS: BP 140/75
[2018-07-16 04:00] VITALS: BP 133/71
[2018-07-16] MEDS: BLOOD SUGAR DIAGNOSTIC STRIP TEST SCH ×4 (06:43→20:25)
[2018-07-16] MEDS: HYDRALAZINE HCL 25MG TABLET PO SCH ×3 (06:49→21:42)
[2018-07-16] MEDS: GABAPENTIN 300MG CAPSULE PO SCH ×3 (06:49→21:42)
[2018-07-16] MEDS: HYDROCODONE/ACETAMINOPHEN 5/325MG TABLET PO PRN ×3 (06:55→20:36)
[2018-07-16] MEDS: GLIPIZIDE 5MG TABLET PO SCH (07:40)
[2018-07-16] MEDS: INSULIN LISPRO 100 UNITS/ML SUBCUT SCH ×4 (07:42→20:37)
[2018-07-16] MEDS ORDERED: HEPARIN SODIUM 1,000 UNIT/1ML VIAL IV NR (07:45)
[2018-07-16 08:11] VITALS: BP 132/81
[2018-07-16] MEDS: FAMOTIDINE 20MG TABLET PO SCH (09:00)
[2018-07-16] MEDS: NIFEDIPINE XL 60MG TAB PO SCH (09:00)
[2018-07-16] MEDS: ASPIRIN 81MG TABLET PO SCH (09:00)
[2018-07-16 10:42] LABS: HEMATOCRIT. 28.2 % (36.0-48.0); MEAN CORPUSCULAR HEMOGLOBIN 20.5 pg (28.0-32.0); MEAN CORPUSCULAR VOLUME 64.4 fL (81.0-99.0); MEAN PLATELET VOLUME 10.4 fl (7.4-10.4); PLATELET 257 x1000/uL (130-400); RED BLOOD CELL COUNT 4.37 mill/uL (4.2-5.4); RED CELL DISTRIBUTION WIDTH 19.4 % (11.6-14.6)
[2018-07-16 11:01] LABS: PHOSPHORUS 2.5 mg/dL (2.5-4.9)
[2018-07-16 12:00] VITALS: BP 114/34
[2018-07-16] MEDS: DIPHENHYDRAMINE 25MG CAPSULE PO PRN ×2 (13:17→21:42)
[2018-07-16 16:00] VITALS: BP 138/80
[2018-07-16 17:27] LABS: PLATELET ESTIMATE NORMAL
[2018-07-16 20:00] VITALS: BP 128/74
[2018-07-16] MEDS: ATORVASTATIN CALCIUM 20MG TABLET PO SCH (20:35)
[2018-07-16] MEDS: EPOETIN ALFA 4000UNITS/ML VIAL SUBCUT SCH (20:36)
[2018-07-17] VITALS: BP 154/74
[2018-07-17] MEDS: HYDROCODONE/ACETAMINOPHEN 5/325MG TABLET PO PRN ×4 (00:27→21:39)
[2018-07-17 04:00] VITALS: BP 107/59
[2018-07-17] MEDS: GABAPENTIN 300MG CAPSULE PO SCH ×3 (05:24→21:37)
[2018-07-17] MEDS: HYDRALAZINE HCL 25MG TABLET PO SCH ×3 (05:25→21:38)
[2018-07-17 08:00] VITALS: BP 106/55
[2018-07-17] MEDS: INSULIN LISPRO 100 UNITS/ML SUBCUT SCH ×4 (08:10→21:31)
[2018-07-17] MEDS: BLOOD SUGAR DIAGNOSTIC STRIP TEST SCH ×4 (08:34→21:31)
[2018-07-17] MEDS: NIFEDIPINE XL 60MG TAB PO SCH (08:36)
[2018-07-17] MEDS: GLIPIZIDE 5MG TABLET PO SCH (09:20)
[2018-07-17] MEDS: FAMOTIDINE 20MG TABLET PO SCH (09:20)
[2018-07-17] MEDS: ASPIRIN 81MG TABLET PO SCH (09:20)
[2018-07-17 12:00] VITALS: BP 125/93
[2018-07-17] MEDS: DIPHENHYDRAMINE 25MG CAPSULE PO PRN ×2 (13:24→21:37)
[2018-07-17 16:00] VITALS: BP 137/90
[2018-07-17 20:00] VITALS: BP 153/89
[2018-07-17] MEDS: ATORVASTATIN CALCIUM 20MG TABLET PO SCH (21:39)
[2018-07-18 06:00] VITALS: BP 112/87
[2018-07-18] MEDS: HYDRALAZINE HCL 25MG TABLET PO SCH ×3 (06:00→21:36)
[2018-07-18] MEDS: GABAPENTIN 300MG CAPSULE PO SCH ×3 (06:26→21:35)
[2018-07-18] MEDS: BLOOD SUGAR DIAGNOSTIC STRIP TEST SCH ×4 (06:26→21:00)
[2018-07-18] MEDS: INSULIN LISPRO 100 UNITS/ML SUBCUT SCH ×4 (07:35→21:00)
[2018-07-18 08:00] VITALS: BP 127/67
[2018-07-18] MEDS: GLIPIZIDE 5MG TABLET PO SCH (08:37)
[2018-07-18] MEDS: ASPIRIN 81MG TABLET PO SCH (08:38)
[2018-07-18] MEDS: DIPHENHYDRAMINE 25MG CAPSULE PO PRN ×2 (08:38→21:36)
[2018-07-18] MEDS: NIFEDIPINE XL 60MG TAB PO SCH (08:38)
[2018-07-18] MEDS: FAMOTIDINE 20MG TABLET PO SCH (08:38)
[2018-07-18] MEDS: HYDROCODONE/ACETAMINOPHEN 5/325MG TABLET PO PRN ×4 (08:40→23:00)
[2018-07-18 09:55] LABS: BASOPHILS % 0.8 % (0.0-2.0); EOSINOPHILS % 7.6 % (0.0-5.0); HEMATOCRIT. 26.7 % (36.0-48.0); HEMOGLOBIN. 8.4 g/dL (12.0-16.0); LYMPHOCYTES % 35.6 % (20.0-50.0); MEAN CORPUSCULAR HEMOGLOBIN 20.4 pg (28.0-32.0); MEAN CORPUSCULAR VOLUME 64.7 fL (81.0-99.0); MONOCYTES % 10.4 % (2.0-8.0); NEUTROPHILS % 45.6 % (40.0-76.0); RED BLOOD CELL COUNT 4.13 mill/uL (4.2-5.4); RED CELL DISTRIBUTION WIDTH 19.3 % (11.6-14.6)
[2018-07-18 10:21] LABS: MEAN PLATELET VOLUME 11.1 fl (7.4-10.4); PLATELET 241 x1000/uL (130-400)
[2018-07-18 10:51] LABS: PHOSPHORUS 6.1 mg/dL (2.5-4.9)
[2018-07-18 12:00] VITALS: BP 120/54
[2018-07-18] MEDS ORDERED: HEPARIN SODIUM 1,000 UNIT/1ML VIAL IV NR (12:46)
[2018-07-18 16:00] VITALS: BP 136/74
[2018-07-18 20:00] VITALS: BP 129/67
[2018-07-18] MEDS: EPOETIN ALFA 4000UNITS/ML VIAL SUBCUT SCH (21:00)
[2018-07-18] MEDS: ATORVASTATIN CALCIUM 20MG TABLET PO SCH (21:36)
[2018-07-19 00:48] VITALS: BP 128/72
[2018-07-19] MEDS: HYDROCODONE/ACETAMINOPHEN 5/325MG TABLET PO PRN ×3 (03:13→17:07)
[2018-07-19 04:21] VITALS: BP 140/65
[2018-07-19] MEDS: HYDRALAZINE HCL 25MG TABLET PO SCH ×3 (06:05→21:39)
[2018-07-19] MEDS: GABAPENTIN 300MG CAPSULE PO SCH ×3 (06:05→21:55)
[2018-07-19] MEDS: BLOOD SUGAR DIAGNOSTIC STRIP TEST SCH ×3 (07:47→21:55)
[2018-07-19] MEDS: INSULIN LISPRO 100 UNITS/ML SUBCUT SCH ×3 (07:47→21:52)
[2018-07-19 08:00] VITALS: BP 163/86
[2018-07-19] MEDS: GLIPIZIDE 5MG TABLET PO SCH (08:33)
[2018-07-19] MEDS: ASPIRIN 81MG TABLET PO SCH (08:33)
[2018-07-19] MEDS: FAMOTIDINE 20MG TABLET PO SCH (08:33)
[2018-07-19] MEDS: NIFEDIPINE XL 60MG TAB PO SCH (08:33)
[2018-07-19 12:00] VITALS: BP 148/79
[2018-07-19 16:00] VITALS: BP 136/84
[2018-07-19 20:53] VITALS: BP 97/66
[2018-07-19] MEDS: ACETAMINOPHEN 325MG TABLET PO PRN (21:55)
[2018-07-19] MEDS: DIPHENHYDRAMINE 25MG CAPSULE PO PRN (21:55)
[2018-07-19] MEDS: ATORVASTATIN CALCIUM 20MG TABLET PO SCH (21:55)
[2018-07-20 00:49] VITALS: BP 122/68
[2018-07-20 04:46] VITALS: BP 128/61
[2018-07-20] MEDS: GABAPENTIN 300MG CAPSULE PO SCH ×3 (05:55→20:44)
[2018-07-20] MEDS: HYDRALAZINE HCL 25MG TABLET PO SCH ×3 (05:55→20:45)
[2018-07-20] MEDS: HYDROCODONE/ACETAMINOPHEN 5/325MG TABLET PO PRN ×2 (06:03→20:44)
[2018-07-20 07:03] LABS: BASOPHILS % 0.9 % (0.0-2.0); EOSINOPHILS % 10.6 % (0.0-5.0); HEMATOCRIT. 26.8 % (36.0-48.0); HEMOGLOBIN. 8.5 g/dL (12.0-16.0); LYMPHOCYTES % 39.4 % (20.0-50.0); MEAN CORPUSCULAR HEMOGLOBIN 20.5 pg (28.0-32.0); MEAN CORPUSCULAR VOLUME 64.4 fL (81.0-99.0); MONOCYTES % 13.5 % (2.0-8.0); NEUTROPHILS % 35.6 % (40.0-76.0); RED BLOOD CELL COUNT 4.16 mill/uL (4.2-5.4)
[2018-07-20] MEDS: BLOOD SUGAR DIAGNOSTIC STRIP TEST SCH ×4 (07:40→21:00)
[2018-07-20 08:00] VITALS: BP 160/79
[2018-07-20] MEDS: INSULIN LISPRO 100 UNITS/ML SUBCUT SCH ×4 (08:10→21:00)
[2018-07-20] MEDS: ASPIRIN 81MG TABLET PO SCH (09:14)
[2018-07-20] MEDS: NIFEDIPINE XL 60MG TAB PO SCH (09:15)
[2018-07-20] MEDS: FAMOTIDINE 20MG TABLET PO SCH (09:16)
[2018-07-20] MEDS: ACETAMINOPHEN 325MG TABLET PO PRN (09:24)
[2018-07-20] MEDS: GLIPIZIDE 5MG TABLET PO SCH (09:24)
[2018-07-20] MEDS: DIPHENHYDRAMINE 25MG CAPSULE PO PRN ×2 (09:25→20:44)
[2018-07-20 10:31] LABS: PHOSPHORUS 6.4 mg/dL (2.5-4.9)
[2018-07-20 11:04] LABS: PLATELET 199 x1000/uL (130-400)
[2018-07-20 12:00] VITALS: BP 103/70
[2018-07-20 16:00] VITALS: BP 116/61
[2018-07-20 20:00] VITALS: BP 159/82
[2018-07-20] MEDS: EPOETIN ALFA 4000UNITS/ML VIAL SUBCUT SCH (20:43)
[2018-07-20] MEDS: ATORVASTATIN CALCIUM 20MG TABLET PO SCH (20:45)
[2018-07-21] MEDS: ACETAMINOPHEN 325MG TABLET PO PRN (00:54)
[2018-07-21] MEDS: GABAPENTIN 300MG CAPSULE PO SCH ×2 (06:58→14:34)
[2018-07-21] MEDS: GLIPIZIDE 5MG TABLET PO SCH (06:58)
[2018-07-21] MEDS: HYDRALAZINE HCL 25MG TABLET PO SCH ×2 (06:58→14:34)
[2018-07-21] MEDS: BLOOD SUGAR DIAGNOSTIC STRIP TEST SCH ×2 (06:59→12:40)
[2018-07-21] MEDS: HYDROCODONE/ACETAMINOPHEN 5/325MG TABLET PO PRN ×2 (07:05→13:24)
[2018-07-21 08:00] VITALS: BP 141/75
[2018-07-21] MEDS: INSULIN LISPRO 100 UNITS/ML SUBCUT SCH ×2 (08:10→12:44)
[2018-07-21] MEDS: NIFEDIPINE XL 60MG TAB PO SCH (09:09)
[2018-07-21] MEDS: ASPIRIN 81MG TABLET PO SCH (09:09)
[2018-07-21] MEDS: FAMOTIDINE 20MG TABLET PO SCH (09:10)
[2018-07-21 10:59] VITALS: BP 159/82
[2018-07-21 14:47] VITALS: BP 141/75
[2018-07-21 16:11] VITALS: BP 120/79
[2018-07-22] MEDS ORDERED: NIFEDIPINE XL 90MG TAB PO SCH (09:00)
== END 2018-07-21 16:05 | disposition home or self-care (01) | DRG 192 ==
LOC: ER 14:58 → 7WST 20:12 → ENRESERV 20:23
PROVIDERS: ADMIT Internal Medicine; ATTEND Internal Medicine
PROC: 5A1D70Z Performance of Urinary Filtration, Intermittent, Less than 6 Hours Per Day (ICD-10-PCS; 2018-07-09)
PROC: 0JH63XZ Insertion of Tunneled Vascular Access Device into Chest Subcutaneous Tissue and Fascia, Percutaneous Approach (ICD-10-PCS; principal; 2018-07-10)
PROC: B2141ZZ Fluoroscopy of Right Heart using Low Osmolar Contrast (ICD-10-PCS; 2018-07-10)
PROC: 02H633Z Insertion of Infusion Device into Right Atrium, Percutaneous Approach (ICD-10-PCS; 2018-07-10)
PROC: B244ZZZ Ultrasonography of Right Heart (ICD-10-PCS; 2018-07-10)
PROC: 30233N1 Transfusion of Nonautologous Red Blood Cells into Peripheral Vein, Percutaneous Approach (ICD-10-PCS; 2018-07-11)
PROC: 5A1D70Z Performance of Urinary Filtration, Intermittent, Less than 6 Hours Per Day (ICD-10-PCS; 2018-07-11)
PROC: 5A1D70Z Performance of Urinary Filtration, Intermittent, Less than 6 Hours Per Day (ICD-10-PCS; 2018-07-12)
PROC: 5A1D70Z Performance of Urinary Filtration, Intermittent, Less than 6 Hours Per Day (ICD-10-PCS; 2018-07-15)
PROC: 5A1D70Z Performance of Urinary Filtration, Intermittent, Less than 6 Hours Per Day (ICD-10-PCS; 2018-07-17)
PROC: 5A1D70Z Performance of Urinary Filtration, Intermittent, Less than 6 Hours Per Day (ICD-10-PCS; 2018-07-19)
DX: I16.0 Hypertensive urgency (principal); N17.9 Acute kidney failure, unspecified; E44.0 Moderate protein-calorie malnutrition; E11.22 Type 2 diabetes mellitus with diabetic chronic kidney disease; E11.42 Type 2 diabetes mellitus with diabetic polyneuropathy; N18.6 End stage renal disease; E86.0 Dehydration; D64.9 Anemia, unspecified; R26.9 Unspecified abnormalities of gait and mobility; E11.51 Type 2 diabetes mellitus with diabetic peripheral angiopathy without gangrene; I12.0 Hypertensive chronic kidney disease with stage 5 chronic kidney disease or end stage renal disease; G43.909 Migraine, unspecified, not intractable, without status migrainosus; H54.8 Legal blindness, as defined in USA; E78.00 Pure hypercholesterolemia, unspecified; E78.5 Hyperlipidemia, unspecified; E87.5 Hyperkalemia; Z86.73 Personal history of transient ischemic attack (TIA), and cerebral infarction without residual deficits; Z68.38 Body mass index [BMI] 38.0-38.9, adult; Z99.2 Dependence on renal dialysis; Z59.0 Homelessness; Z82.49 Family history of ischemic heart disease and other diseases of the circulatory system; Z83.3 Family history of diabetes mellitus; Z90.49 Acquired absence of other specified parts of digestive tract; Z91.14 Patient's other noncompliance with medication regimen; Z68.34 Body mass index [BMI] 34.0-34.9, adult; Z79.899 Other long term (current) drug therapy; Z79.82 Long term (current) use of aspirin
CPT/HCPCS: 36415; 36558; 70544; 70553; 71045; 76770; 76937; 77001; 80048; 80053; 81003; 82962; 83735; 83880; 84100; 84484; 85025; 85610; 85730; 86705; 86706; 86803; 86850; 86900; 86920; 87086; 87340; 93005; 96374; 96375; 97162; 97166; 99152; 99153; 99285; A6261; C1750; J0690; J0885; J1200; J1644; J1815; J2765; J2930; J3010; J3490; J7030; J7050; P9016; Q0163; Q9967

== ENCOUNTER 2018-07-21 18:41 | Emergency (ER) | payer MEDICAID ==
[~2018-07-21] VITALS: Ht 167.6 cm; Wt 121.0 kg
[2018-07-21] MEDS ORDERED: HYDROCODONE/ACETAMINOPHEN 5/325MG TABLET PO ONE (22:45)
[2018-07-22 07:26] VITALS: BP 144/60
[2018-07-22] MEDS ORDERED: ACETAMINOPHEN 325MG TABLET PO ONE (08:00)
[2018-07-22] MEDS ORDERED: DIPHENHYDRAMINE 25MG CAPSULE PO ONE (11:45)
== END 2018-07-22 13:42 | disposition home or self-care (01) ==
LOC: ER 18:41
DX: G89.29 Other chronic pain (principal); E11.9 Type 2 diabetes mellitus without complications; F17.200 Nicotine dependence, unspecified, uncomplicated; H54.40 Blindness, one eye, unspecified eye; I12.9 Hypertensive chronic kidney disease with stage 1 through stage 4 chronic kidney disease, or unspecified chronic kidney disease; Z99.2 Dependence on renal dialysis; Z79.899 Other long term (current) drug therapy; Z59.0 Homelessness
CPT/HCPCS: 99283